=== PATIENT | female | born 1980 | race Caucasian/White ===

== ENCOUNTER 2019-10-19 09:42 | Emergency (ER) | payer MEDICARE, MEDICAID, SELFPAY ==
[2019-10-19 10:00] VITALS: BP 140/92; PULSE 82; RESP 18; TEMP 36.8; O2SAT 99
--- NOTE | 2019-10-19 10:05 | ED.URI ---
HPI - URI/Sore Throat General Stated Complaint: Sinus and sore throat Time Seen by Provider: 10/19/19 10:05 Source: patient and RN notes reviewed History of Present Illness HPI Narrative: Patient is a 39-year-old female that presents the urgent care with complaints of sinus congestion, sore throat, bilateral ear pressure, postnasal drainage, slight cough without dyspnea or wheezing, chills. Patient states she has a history of asthma and typically is treated with steroids and antibiotics. Patient states she has been using her nebulizers inhalers as needed. Patient has recently traveled from [place]. Denies known fever. No other acute complaints. No acute distress noted. Patient had a plan of care. Related Data Allergies Allergy/AdvReac Type Severity Reaction Status Date / Time codeine Allergy Severe HIVES, BUT Verified 10/19/19 10:17 NOT ALLERGIC TO ANY OTHER CODIENE MEDS OR TYLENOL lisinopril Allergy Unknown Anaphylactic Verified 10/19/19 10:17 Shock SUMATRIPTAN SUCCINATE Allergy Mild SEIZURES Uncoded 11/22/15 11:50 Review of Systems Review of Systems: Narrative: CONSTITUTIONAL: Reports of chills EYES: Denies visual changes, redness, or discharge. ENT: Reports of sore throat, sinus congestion, bilateral ear pressure, postnasal drainage CARDIOVASCULAR: Denies chest pain, palpitations, or edema. RESPIRATORY: Reports of nonproductive cough without dyspnea or wheezing GASTROINTESTINAL: Denies abdominal pain, nausea, vomiting, or diarrhea. GENITOURINARY: Denies dysuria or hematuria. SKIN: Denies rash or itching. MUSCULOSKELETAL: Denies back pain, joint pain, or myalgia. NEUROLOGIC: Denies headache, numbness, or weakness. All other systems reviewed are negative, except as documented in HPI. PMFSH Comments At the time of my signature, I reviewed and agree with the nursing past medical, surgical, social, and family history. There is no relevant family history pertinent to the patient complaint. Exam Narrative: Exam Narrative: GENERAL: This is a well-nourished, well-developed patient, in no apparent distress. HEAD: normocephalic, atraumatic. EYES: PERRL. Sclera clear/white. Vision is grossly intact. EARS: External ears normal, auditory canals clear and without drainage, TMs normal without perforation. Hearing grossly intact. NOSE: External nose normal with no obvious nasal discharge, nares without redness, clear rhinorrhea. THROAT: Mucous membranes moist, posterior pharynx clear. Mild clear postnasal drainage NECK: Neck supple CARDIOVASCULAR: Regular rate and rhythm without murmurs, gallops, or rubs. RESPIRATORY: Clear to auscultation. Breath sounds equal bilaterally. No wheezes, rales, or rhonchi. SKIN: warm, intact with no suspicious lesions or rash, good texture and turgor. NEURO: awake, alert, and oriented to person, place and time. There were no obvious focal neurologic abnormalities. EXTREMITIES: No clubbing, cyanosis, or edema. Course Vital Signs Vital signs: Vital Signs Temperature 98.2 F 10/19/19 10:00 Pulse Rate 82 10/19/19 10:00 Respiratory Rate 18 10/19/19 10:00 Blood Pressure 140/92 H 10/19/19 10:00 Pulse Oximetry 99 10/19/19 10:00 Temperature 98.2 F 10/19/19 10:00 Pulse Rate 82 10/19/19 10:00 Respiratory Rate 18 10/19/19 10:00 Blood Pressure 140/92 H 10/19/19 10:00 Pulse Oximetry 99 10/19/19 10:00 Reviewed MDM - URI/Sore Throat MDM Narrative Medical decision making narrative: Reviewed lab results with the patient. She is aware that her strep swab was negative as well as influenza. Educated patient on culture and we will call within 72 hours if culture is positive for strep and antibiotics are necessary. Advised the patient to use nebulizers and inhalers as directed. Continue allergy medication. Use Flonase nasal spray for postnasal drainage and sinus relief. Complete steroid regimen as prescribed. Make sure to eat and drink w
== END 2019-10-19 10:25 | disposition home or self-care (01) ==
PROVIDERS: Emergency Provider Nurse Practitioner Family; PCP Family Medicine
DX: J06.9 Acute upper respiratory infection, unspecified (principal); J45.909 Unspecified asthma, uncomplicated; I10 Essential (primary) hypertension; M06.9 Rheumatoid arthritis, unspecified
CPT/HCPCS: 87081; 87804; 87880; 99213; G0463

== ENCOUNTER 2020-01-14 10:34 | Outpatient (CLI) | payer MEDICARE, MEDICAID, SELFPAY ==
[2020-01-14 10:56] LABS: Basophils Absolute Auto 0.1 K/mm3 (0.0-0.1); Basophils Percent Auto 0.7 % (0.2-1.2); Eosinophils Absolute Auto 0.2 K/mm3 (0-0.3); Eosinophils Percent Auto 1.9 % (0-4.4); Hematocrit 42.5 % (37.0-47.0); Hemoglobin 14.8 g/dL (12.0-15.0); Immature Granulocyte Absolute 0.03 K/mm3 (0.00-0.031); Immature Granulocyte Percent A 0.4 % (0-0.5); Lymphocytes Absolute Auto 2.61 K/mm3 (0.9-3.2); Mean Corpuscular HGB Conc 34.8 g/dl (32-36); Mean Corpuscular Volume 89.1 fl (80-100); Mean Platelet Volume 9.8 fl (7.4-10.4); Monocytes Absolute Auto 0.7 K/mm3 (0.1-0.6); Monocytes Percent Auto 7.9 % (2.6-8.5); Neutrophils Absolute Auto 4.9 K/mm3 (1.3-6.7); Neutrophils Percent Auto 58.1 % (45.5-73.1); Platelet Count Result 263 k/mm3 (150-375); Red Blood Count 4.77 M/mm3 (4.2-5.4); Red Cell Distribution Width 12.5 % (11.5-14.5); White Blood Count 8.4 K/mm3 (4.5-10.0)
[2020-01-14 11:12] LABS: Alanine Aminotransferase 110 U/L (4-35); Albumin Level 4.3 g/dL (3.5-5.1); Alkaline Phosphatase 71 U/L (38-126); Aspartate Amino Transferase 85 U/L (14-36); Bilirubin,Total 0.7 mg/dL (0.2-1.3); Blood Urea Nitrogen 11 mg/dL (7-17); Calcium 8.8 mg/dL (8.4-10.2); Carbon Dioxide 26 mmol/L (22-30); Chloride 105 mmol/L (98-107); Cholesterol 187 mg/dL (0-200); Estimated Glomerular Filt Rate > 60; Glucose 96 mg/dL (65-105); HDL Direct 43 mg/dL; Potassium 3.9 mmol/L (3.4-5.0); Sodium 137 mmol/L (137-145); Triglycerides 199 mg/dL (<150)
[2020-01-14 11:23] LABS: LDL Cholesterol Direct 102 mg/dL
[2020-01-14 12:25] LABS: Free T4 Free Thyroxine 1.01 ng/mL (0.78-2.19); Vitamin D 25 Hydroxy 37.4 ng/mL
== END 2020-01-14 10:35 | disposition home or self-care (01) ==
LOC: ANHLAB 10:40
PROVIDERS: PCP Family Medicine; Visit Provider Family Medicine
DX: Z13.0 Encounter for screening for diseases of the blood and blood-forming organs and certain disorders involving the immune mechanism (principal); Z13.6 Encounter for screening for cardiovascular disorders; Z13.220 Encounter for screening for lipoid disorders; Z13.29 Encounter for screening for other suspected endocrine disorder; E55.9 Vitamin D deficiency, unspecified
CPT/HCPCS: 36415; 80053; 80061; 82306; 84439; 84443; 84480; 85025

== ENCOUNTER 2020-04-21 10:16 | Outpatient (CLI) | payer MEDICARE, MEDICAID, SELFPAY ==
--- NOTE | ~2020-04-21 | XR_ITS ---
XR foot RT min 3V 04/21/2020 10:35 Indication: Right foot pain Procedure: 4 views right foot Comparison: 08/14/2010 Findings: There are degenerative calcaneal enthesophytes. Mild osteoarthritis of the first MTP joint. No fracture, subluxation or dislocation. Lisfranc joint intact. 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 Reviewed, dictated and finalized at location B. 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
== END 2020-04-21 10:17 | disposition home or self-care (01) ==
LOC: ANHIMG 10:21
PROVIDERS: PCP Family Medicine; Visit Provider Nurse Practitioner
DX: M79.671 Pain in right foot (principal); M19.071 Primary osteoarthritis, right ankle and foot
CPT/HCPCS: 73630

== ENCOUNTER → 2020-09-24 07:41 | Outpatient (CLI) | payer MEDICARE, MEDICAID, SELFPAY ==
[2020-09-24 22:49] LABS: SARS-CoV-2 RNA PCR Negative
== END ==
PROVIDERS: PCP Family Medicine; Visit Provider Family Medicine
DX: Z20.822 Contact with and (suspected) exposure to COVID-19 (principal)
CPT/HCPCS: C9803; U0003; U0005

== ENCOUNTER 2020-10-13 18:23 | Emergency (ER) | payer MEDICARE, MEDICAID, SELFPAY ==
--- NOTE | ~2020-10-13 | XR_ITS ---
XR chest 1V portable 10/13/2020 19:32 Indication: Covid Infection. Shortness of breath. Fever. Procedure: AP portable chest Comparison: Comparison to multiple prior studies sequentially, with oldest reviewed study dated 02/2011. Findings: There are bilateral interstitial infiltrates with left basilar atelectasis. No pleural effu aleena. No pneumothorax. Heart size normal. Impression: 1: Bilateral interstitial infiltrates, suspicious for pneumonia. Reviewed, dictated and finalized at location A. E [employer] Impression: 1: Bilateral interstitial infiltrates, suspicious for pneumonia.
[2020-10-13 18:35] VITALS: BP 136/89; PULSE 94; RESP 18; TEMP 37.2; O2SAT 98
[2020-10-13 19:14] LABS: Basophils Percent Auto 0.3 % (0.2-1.2); Eosinophils Percent Auto 0.3 % (0-4.4); Hematocrit 42.6 % (37.0-47.0); Hemoglobin 14.9 g/dL (12.0-15.0); Immature Granulocyte Absolute 0.03 K/mm3 (0.00-0.031); Immature Granulocyte Percent A 0.8 % (0-0.5); Lymphocytes Absolute Auto 0.68 K/mm3 (0.9-3.2); Lymphocytes Percent Auto 17.8 % (18.3-44.2); Mean Corpuscular Hemoglobin 30.7 pg (26-34); Mean Corpuscular Volume 87.8 fl (80-100); Mean Platelet Volume 10.1 fl (7.4-10.4); Monocytes Absolute Auto 0.1 K/mm3 (0.1-0.6); Monocytes Percent Auto 3.1 % (2.6-8.5); Neutrophils Percent Auto 77.7 % (45.5-73.1); Platelet Count Result 179 k/mm3 (150-375); Red Blood Count 4.85 M/mm3 (4.2-5.4); Red Cell Distribution Width 12.1 % (11.5-14.5); White Blood Count 3.8 K/mm3 (4.5-10.0)
[2020-10-13 19:28] LABS: Anion Gap 7 mmol/L (8-16); Blood Urea Nitrogen 11 mg/dL (7-17); Calcium 8.5 mg/dL (8.4-10.2); Carbon Dioxide 26 mmol/L (22-30); Chloride 104 mmol/L (98-107); Estimated CRCL calculation 122 ml/min; Estimated Glomerular Filt Rate > 60; Glucose 247 mg/dL (65-105); Sodium 137 mmol/L (137-145)
--- NOTE | 2020-10-13 20:22 | ED.FEVER ---
HPI - Fever General Chief Complaint: Fever Stated Complaint: COVID+ FEVER Time Seen by Provider: 10/13/20 18:40 History of Present Illness HPI Narrative: Patient is a 40-year-old female who presents the ER with feelings of increased fatigue and fever related to her COVID-19 illness. Patient began to feel symptoms 1 week ago and tested +5 days ago. She is also starting to have some discomfort in her back with breathing and movement. She is been taking Tylenol and ibuprofen. She contacted her PCPs office who started her on prednisone today as well as albuterol breathing treatments. Patient has no exertional shortness of breath. She has some mild runny nose with sore throat with occasional cough. No chest pain or chest pressure. Related Data Home Medications Medication Instructions Recorded Confirmed amlodipine 5 mg PO DAILY 10/13/20 bumetanide [Bumex] 1 mg PO DAILY 10/13/20 fexofenadine [Alda] 180 mg PO DAILY 10/13/20 metoprolol succinate 100 mg PO DAILY 10/13/20 prednisone 0 mg PO PER PKG DIR 10/13/20 Allergies Allergy/AdvReac Type Severity Reaction Status Date / Time codeine Allergy Severe HIVES, BUT Verified 10/13/20 19:00 NOT ALLERGIC TO ANY OTHER CODIENE MEDS OR TYLENOL lisinopril Allergy Unknown Anaphylactic Verified 10/13/20 19:00 Shock SUMATRIPTAN SUCCINATE Allergy Mild SEIZURES Uncoded 11/22/15 11:50 Review of Systems Review of Systems: All systems reviewed & are unremarkable except as noted in HPI and below Constitutional: Constitutional: Denies chills, Denies fatigue and Denies fever(s) ENT: Reports nasal congestion and Reports sore throat Cardiovascular: Cardiovascular: Denies chest pain and Denies radiating jaw, neck or arm pain Respiratory: Respiratory: Reports cough, Denies dyspnea and Denies wheezing Musculoskeletal: Musculoskeletal: Reports back pain, Reports myalgias and Denies muscle cramps PMFSH Past Medical History Medical History (Updated 10/13/20 @ 20:38 by Dane Vanessa MD) Rheumatoid arthritis Surgical History Surgical History (Updated 10/13/20 @ 20:38 by Dane Vanessa MD) No pertinent past surgical history Social History Social History Gender identity (if verbalized by the patient): Female Exam Narrative: Exam Narrative: GENERAL: Well-appearing, well-nourished, and in no acute distress. HEAD: Normocephalic, atraumatic. ENT: Mucous membranes moist. CHEST: Clear to auscultation. No respiratory distress. HEART: Regular rate and rhythm. Normal peripheral pulses. EXTREMITIES: Normal range of motion. No edema. NEURO: Alert and oriented x3. PSYCH: Normal mood and affect. Course Vital Signs Vital signs: Vital Signs Temperature 99 F 10/13/20 18:35 Pulse Rate 94 10/13/20 18:35 Respiratory Rate 18 10/13/20 18:35 Blood Pressure 136/89 10/13/20 18:35 Pulse Oximetry 98 10/13/20 18:35 Temperature 99 F 10/13/20 18:35 Pulse Rate 94 10/13/20 18:35 Respiratory Rate 18 10/13/20 18:35 Blood Pressure 136/89 10/13/20 18:35 Pulse Oximetry 98 10/13/20 18:35 MDM - Fever Lab Data Result diagrams: 10/13/20 19:05 10/13/20 19:05 Labs: Lab Results 10/13/20 10/13/20 Range/Units 19:05 19:05 WBC 3.8 L (4.5-10.0) K/mm3 RBC 4.85 (4.2-5.4) M/mm3 Hgb 14.9 (12.0-15.0) g/dL Hct 42.6 (37.0-47.0) % MCV 87.8 (80-100) fl MCH 30.7 (26-34) pg MCHC 35.0 (32-36) g/dl RDW 12.1 (11.5-14.5) % Plt Count 179 (150-375) k/mm3 MPV 10.1 (7.4-10.4) fl Immature Gran % (Auto) 0.8 H (0-0.5) % Neut % (Auto) 77.7 H (45.5-73.1) % Lymph % (Auto) 17.8 L (18.3-44.2) % [place] % (Auto) 3.1 (2.6-8.5) % Eos % (Auto) 0.3 (0-4.4) % Baso % (Auto) 0.3 (0.2-1.2) % Lymph # (Auto) 0.68 L (0.9-3.2) K/mm3 [place] # (Auto) 0.1 (0.1-0.6) K/mm3 Eos # (Auto) 0.0 (0-0.3) K/mm3 Baso # (Auto) 0.0 (0.0-0.1) K/mm3 Ab
[2020-10-13 20:41] VITALS: BP 139/89; PULSE 74; RESP 16; TEMP 36.7; O2SAT 98
[2020-10-13] MEDS: ONDANSETRON INJ 4 MG/2 ML VIAL IV PUSH (20:41)
== END 2020-10-13 20:42 | disposition home or self-care (01) ==
PROVIDERS: Emergency Provider Emergency Medicine; PCP Family Medicine
DX: U07.1 COVID-19 (principal); J12.82 Pneumonia due to coronavirus disease 2019; M06.9 Rheumatoid arthritis, unspecified
CPT/HCPCS: 36415; 71045; 80048; 85025; 96374; 99284; J2405

== ENCOUNTER 2020-10-14 11:33 | Outpatient (RCR) | payer MEDICARE, MEDICAID, SELFPAY ==
[2020-10-14] MEDS: ACETAMINOPHEN 325 MG TABLET 650 MG PO (12:40)
[2020-10-14] MEDS: FAMOTIDINE 20 MG TABLET PO (12:40)
[2020-10-14] MEDS: diphenhydrAMINE HCl CAP 25 MG CAPSULE PO (12:41)
[2020-10-14 12:52] VITALS: BP 121/70; PULSE 73; RESP 18; TEMP 36.7; O2SAT 96
[2020-10-14 14:17] VITALS: BP 132/78; PULSE 72; RESP 18; O2SAT 97
== END 2020-10-14 16:30 | disposition home or self-care (01) ==
LOC: AMCINF 11:33
PROVIDERS: PCP Nurse Practitioner; Visit Provider Internal Medicine Hematology & Oncology
DX: Z23 Encounter for immunization (principal); U07.1 COVID-19; I10 Essential (primary) hypertension; Z68.41 Body mass index [BMI] 40.0-44.9, adult
CPT/HCPCS: A9270; M0239; Q0239

== ENCOUNTER 2020-11-23 14:17 | Emergency (ER) | payer MEDICARE, MEDICAID, SELFPAY ==
--- NOTE | ~2020-11-23 | CT_ITS ---
EXAMINATION: CT abdomen pelvis w con DATE: 11/23/2020 15:52 INDICATION: Constipation. Abdominal pain. TECHNIQUE: Computed tomography (CT) of the abdomen and pelvis was performed with 100 mL Omnipaque 350 intravenous contrast. Automated exposure control and iterative reconstruction technique were employe d. The dose-length product was 1358.39 mGy-cm. COMPARISON: CT abdomen and pelvis 09/28/2011 FINDINGS: The visualized portions of the lung bases demonstrate minimal atelectasis. No pleural effus ion. The heart size is normal. No pericardial effusion. The liver is normal. There are changes of cho lecystectomy. There are chronic low-attenuation lesions in the spleen measuring up to 10 mm, likely b enign lesions such as granulomatous disease. The pancreas, adrenal glands, and kidneys are normal nor mal. There is diverticulosis of the colon without evidence of diverticulitis. There are no dilated lo ops of bowel. The appendix is normal. There are no pathologically enlarged lymph nodes. There is no f ree intraperitoneal fluid. There are chronic bilateral L5 pars defects. There is 5 mm anterolisthesis of L5 on S1. There is moderate lumbar spondylosis. IMPRESSION: 1. No etiology for the patient's symptoms. Reviewed, dictated and finalized at location B.
[2020-11-23 14:52] VITALS: BP 131/95; PULSE 87; RESP 14; TEMP 36.4; O2SAT 99
[2020-11-23 15:04] LABS: Basophils Absolute Auto 0.1 K/mm3 (0.0-0.1); Eosinophils Absolute Auto 0.1 K/mm3 (0-0.3); Eosinophils Percent Auto 1.2 % (0-4.4); Hematocrit 41.2 % (37.0-47.0); Hemoglobin 14.7 g/dL (12.0-15.0); Immature Granulocyte Absolute 0.03 K/mm3 (0.00-0.031); Immature Granulocyte Percent A 0.5 % (0-0.5); Lymphocytes Absolute Auto 2.35 K/mm3 (0.9-3.2); Lymphocytes Percent Auto 39.9 % (18.3-44.2); Mean Corpuscular HGB Conc 35.7 g/dl (32-36); Mean Corpuscular Hemoglobin 31.3 pg (26-34); Mean Corpuscular Volume 87.7 fl (80-100); Mean Platelet Volume 9.7 fl (7.4-10.4); Monocytes Absolute Auto 0.6 K/mm3 (0.1-0.6); Monocytes Percent Auto 9.7 % (2.6-8.5); Neutrophils Absolute Auto 2.8 K/mm3 (1.3-6.7); Neutrophils Percent Auto 47.7 % (45.5-73.1); Platelet Count Result 288 k/mm3 (150-375); Red Cell Distribution Width 12.4 % (11.5-14.5); White Blood Count 5.9 K/mm3 (4.5-10.0)
[2020-11-23 15:09] LABS: Alanine Aminotransferase 375 U/L (4-35); Albumin Level 4.6 g/dL (3.5-5.1); Alkaline Phosphatase 79 U/L (38-126); Anion Gap 6 mmol/L (8-16); Aspartate Amino Transferase 345 U/L (14-36); Blood Urea Nitrogen 8 mg/dL (7-17); Calcium 8.8 mg/dL (8.4-10.2); Carbon Dioxide 27 mmol/L (22-30); Chloride 105 mmol/L (98-107); Estimated CRCL calculation 123 ml/min; Estimated Glomerular Filt Rate > 60; Glucose 125 mg/dL (65-105); Lipase 210 U/L (23-300); Potassium 3.8 mmol/L (3.4-5.0); Sodium 138 mmol/L (137-145)
[2020-11-23 15:10] VITALS: BP 145/90; PULSE 99; RESP 18; TEMP 36.6; O2SAT 97
[2020-11-23 15:15] LABS: Add Urine Microscopic? NO; Appearance Urine Clear (Clear); Bilirubin Urine Negative (Negative); Blood Urine Negative (Negative); Color Urine Straw (Yellow); Glucose Urine UA Negative (Negative); Ketones Urine Negative (Negative); Leukocyte Esterase Ur Negative LEU/UL (Negative); Nitrate Urine Negative (Negative); Protein Urine Negative (Negative); Specific Grav Ur 1.005 (1.001-1.035); Urobilinogen Urine Negative mg/dL (<2.0)
--- NOTE | 2020-11-23 15:26 | ED.ABDPAIN ---
HPI - Abdominal Pain General Chief Complaint: Abdominal Pain Stated Complaint: constipation x 1 week Time Seen by Provider: 11/23/20 15:20 Source: RN notes reviewed History of Present Illness HPI narrative: Patient presents to emergency department from home for abdominal pain. Patient states that beginning yesterday she began to have abdominal pain diffusely throughout the abdomen described as cramping. States that she has had minimal bowel movements for the past 7 days and does have a history of constipation she states that time she had tried laxatives followed by an enema with normal output. She did talk to her GI specialist yesterday and tried magnesium citrate with no results due to the fact that she continued no bowel movements she was directed to the emergency department to rule out a bowel obstruction as patient has had previous gallbladder surgery she denies any fevers or chills chest pain shortness of breath. She does note nausea states she took no pain medication at home Related Data Home Medications Medication Instructions Recorded Confirmed amlodipine 5 mg PO DAILY 10/13/20 10/14/20 bumetanide [Bumex] 1 mg PO DAILY 10/13/20 10/14/20 fexofenadine [Alda] 180 mg PO DAILY 10/13/20 10/14/20 metoprolol succinate 100 mg PO DAILY 10/13/20 10/14/20 Allergies Allergy/AdvReac Type Severity Reaction Status Date / Time codeine Allergy Severe HIVES, BUT Verified 11/23/20 15:21 NOT ALLERGIC TO ANY OTHER CODIENE MEDS OR TYLENOL lisinopril Allergy Unknown Anaphylactic Verified 11/23/20 15:21 Shock SUMATRIPTAN SUCCINATE Allergy Mild SEIZURES Uncoded 11/23/20 15:21 Review of Systems Review of Systems: Narrative: Gen.: Denies fevers or chills ENT: Denies congestion Respiratory: Denies shortness of breath or cough CV: Denies chest pain or palpitations GI: See HPI denies burning, urgency, frequency or hematuria Musculoskeletal: Denies back pain or muscle pain Neuro: Denies numbness, tingling, weakness or focal weakness Skin: Denies rash Except as documented, all other systems reviewed and negative PMFSH Past Medical History Medical History Rheumatoid arthritis Surgical History Surgical History (Updated 10/13/20 @ 20:38 by Dane Vanessa MD) No pertinent past surgical history Social History Social History Smoking status: Former smoker Tobacco type: cigarettes Gender identity (if verbalized by the patient): Female Spiritual care concerns: No Exam Narrative: Exam Narrative: APPEARANCE: No acute distress, nontoxic, resting in bed HEENT: Normocephalic, atraumatic, OMM RESPIRATORY: No respiratory distress, clear to auscultation bilaterally with no rhonchi wheezing or rales CARDIOVASCULAR: RRR s murmur ABDOMINAL: Soft nondistended diffusely tender to palpation no rebound or guarding MUSCULOSKELETAl: Moves all extremities. No clubbing, cyanosis or edema. NEURO: Awake and alert. Following commands, speech normal, no focal deficits SKIN:: Warm, dry. Normal Color PSYCHIATRIC: Normal affect/mood Course Course Emergency Course: Discussed with the patient her elevated liver enzymes states that she has had elevated liver enzymes over the past year that she is having worked out they been elevated in the past and has been evaluated and then improved and is been increasing over the past year she states that she has had a biopsy before in the past and is followed by GI will follow as an outpatient with these Patient states that they are feeling much better at this time. States abdominal pain has resolved. Repeat abdominal exam shows the patient's abdomen to be soft and nontender. Discussed with patient results of workup and diagnosis. Discussed need for follow-up with primary care physician, reasons to return to the emergency department in proper use of medication. P
--- NOTE | 2020-11-23 15:43 | PC.NURSE ---
Pt to CT at this time.
[2020-11-23] MEDS: SODIUM CHLORIDE 0.9% IV 1,000 ML 999 ML IV CONT (16:01)
[2020-11-23] MEDS: ONDANSETRON INJ 4 MG/2 ML VIAL IV PUSH (16:03)
[2020-11-23] MEDS: KETOROLAC 30 MG/ML VIAL (*BKC) IV PUSH (16:05)
[2020-11-23 17:00] VITALS: BP 130/90; PULSE 75; RESP 16; O2SAT 99
== END 2020-11-23 17:00 | disposition home or self-care (01) ==
PROVIDERS: Emergency Provider Emergency Medicine; PCP Family Medicine
DX: R10.9 Unspecified abdominal pain (principal); R74.01 Elevation of levels of liver transaminase levels; M06.9 Rheumatoid arthritis, unspecified; Z87.891 Personal history of nicotine dependence
CPT/HCPCS: 36415; 74177; 80053; 81003; 81025; 83690; 85025; 96361; 96374; 96375; 99284; J1885; J2405; J7030; Q9967

== ENCOUNTER 2021-01-17 10:11 | Outpatient (CLI) | payer MEDICARE, MEDICAID, SELFPAY ==
--- NOTE | ~2021-01-17 | US_ITS ---
EXAMINATION: US abdomen limited EXAM DATE: 01/17/2021 10:44 INDICATION: Hepatitis C. TECHNIQUE: Multiple grayscale and Doppler images of the abdomen right upper quadrant were obtained (renan y a technologist who performed the scan) and subsequently reviewed. There is no prior study for trevor duenas. FINDINGS: The pancreatic head and body are normal in appearance. The pancreatic tail is not visualized. The l iver has normal echogenicity and contour. There are no focal liver lesions identified. There is no evidence of intrahepatic biliary duct dilation. Portal venous flow was seen in the hepatopedal, nor mal direction and has normal Doppler waveform. No right-sided hydronephrosis. Common bile duct measures 2 mm, which is normal. The gallbladder fossa is unremarkable. IMPRESSION: 1. Unremarkable abdominal ultrasound exam. Reviewed, dictated and finalized at location B.
== END 2021-01-17 10:12 | disposition home or self-care (01) ==
PROVIDERS: PCP Family Medicine; Visit Provider Internal Medicine Gastroenterology
DX: B19.20 Unspecified viral hepatitis C without hepatic coma (principal); R94.5 Abnormal results of liver function studies; R10.11 Right upper quadrant pain; R14.0 Abdominal distension (gaseous); K59.00 Constipation, unspecified; R63.0 Anorexia
CPT/HCPCS: 76705

== ENCOUNTER 2021-03-18 12:51 | Emergency (ER) | payer MEDICARE, MEDICAID, SELFPAY ==
[2021-03-18] VITALS (9 sets, daily range): BP systolic 123–151; BP diastolic 73–106; PULSE 74–86; RESP 14–21; TEMP 36.2; O2SAT 96–100
--- NOTE | ~2021-03-18 | XR_ITS ---
EXAMINATION: XR chest 2V DATE: 03/18/2021 13:18 INDICATION: Chest pain and productive cough TECHNIQUE: PA and lateral views of the chest are obtained. COMPARISON: 10/13/2020 FINDINGS: The lungs are free of acute opacities. There is no pleural effusion or pneumothorax. The ca rdiomediastinal silhouette is normal. The visualized bones and soft tissues are unremarkable. Cholecy stectomy clips are present in the right upper quadrant. IMPRESSION: 1. No acute cardiopulmonary abnormality. Reviewed, dictated and finalized at location A.
--- NOTE | 2021-03-18 13:02 | ECG_ITS ---
Measurements Intervals [place] Rate: 79 P: 46 NC: 180 QRS: 53 QRSD: 87 T: 47 QT: 364 QTc: 418 Interpretive Statements SINUS RHYTHM BASELINE ARTIFACT- I, III, AVL NORMAL ECG Electronically Signed On 03-18-2021 20:00:24 CDT by Fam Huerta D.O.
[2021-03-18 13:42] LABS: Basophils Absolute Auto 0.1 K/mm3 (0.0-0.1); Basophils Percent Auto 0.8 % (0.2-1.2); Eosinophils Absolute Auto 0.1 K/mm3 (0-0.3); Hematocrit 44.1 % (37.0-47.0); Hemoglobin 14.9 g/dL (12.0-15.0); Immature Granulocyte Absolute 0.03 K/mm3 (0.00-0.031); Immature Granulocyte Percent A 0.5 % (0-0.5); Lymphocytes Absolute Auto 1.67 K/mm3 (0.9-3.2); Lymphocytes Percent Auto 26.1 % (18.3-44.2); Mean Corpuscular HGB Conc 33.8 g/dl (32-36); Mean Corpuscular Hemoglobin 29.9 pg (26-34); Mean Corpuscular Volume 88.4 fl (80-100); Mean Platelet Volume 10.2 fl (7.4-10.4); Monocytes Absolute Auto 0.6 K/mm3 (0.1-0.6); Monocytes Percent Auto 9.5 % (2.6-8.5); Neutrophils Absolute Auto 3.9 K/mm3 (1.3-6.7); Neutrophils Percent Auto 61.1 % (45.5-73.1); Platelet Count Result 279 k/mm3 (150-375); Red Blood Count 4.99 M/mm3 (4.2-5.4); Red Cell Distribution Width 12.4 % (11.5-14.5); White Blood Count 6.4 K/mm3 (4.5-10.0)
[2021-03-18 13:53] LABS: INR 0.9; Prothrombin Time 12.3 Seconds (11.1-14.7)
[2021-03-18 13:54] LABS: Anion Gap 7 mmol/L (8-16); Blood Urea Nitrogen 6 mg/dL (7-17); Calcium 9.4 mg/dL (8.4-10.2); Carbon Dioxide 27 mmol/L (22-30); Chloride 106 mmol/L (98-107); Estimated CRCL calculation 122 ml/min; Estimated Glomerular Filt Rate > 60; Glucose 128 mg/dL (65-110); Potassium 3.9 mmol/L (3.4-5.0); Sodium 140 mmol/L (137-145)
[2021-03-18 14:04] LABS: Troponin I < 0.012 ng/mL (0.000-0.034)
--- NOTE | 2021-03-18 15:54 | ED.GENADULT ---
HPI - General Adult General Chief complaint: Chest Pain Stated complaint: URI, N/V/D, rash, cough Time Seen by Provider: 03/18/21 14:09 Source: patient Mode of arrival: ambulatory Limitations: no limitations History of Present Illness HPI narrative: Patient presents for evaluation of multiple complaints. She states her boyfriend tested positive for COVID on 03/06/21. She went to [facility] two days later and had a negative COVID swab. She was asymptomatic at that time. On Saturday of this week she developed a rash to her hands, BLE, neck and shoulders. No new lotions, soaps, detergents at that time. She also experienced some diarrhea. She went back for a second Covid test on Saturday of this week at [facility]. That test was also negative. Diarrhea improved but she had recurrence of her symptoms thereafter. She has experienced hot flashes but denies objective fever. She also reports productive cough of green sputum. She had some SOB last night that did not respond significantly to albuterol MDI. She does smoke but states her pattern is quite variable. She currently reports some body aches, fatigue, sore throat and nausea. She has also had some intermittent chest tightness. She has been taking mucinex and ibuprofen, which have helped her symptoms. She did have COVID in October of this year. Her boyfriend had COVID at that time and also recently tested positive again for it. Related Data Home Medications Medication Instructions Recorded Confirmed amlodipine 5 mg PO DAILY 10/13/20 10/14/20 bumetanide [Bumex] 1 mg PO DAILY 10/13/20 10/14/20 fexofenadine [Alda] 180 mg PO DAILY 10/13/20 10/14/20 metoprolol succinate 100 mg PO DAILY 10/13/20 10/14/20 Miralax 03/18/21 docusate sodium [Colace] PO 03/18/21 Allergies Allergy/AdvReac Type Severity Reaction Status Date / Time codeine Allergy Severe HIVES, BUT Verified 03/18/21 14:00 NOT ALLERGIC TO ANY OTHER CODIENE MEDS OR TYLENOL lisinopril Allergy Unknown Anaphylactic Verified 03/18/21 14:00 Shock SUMATRIPTAN SUCCINATE Allergy Mild SEIZURES Uncoded 03/18/21 14:00 Review of Systems Review of Systems: CONSTITUTIONAL: Reports hot flashes and fatigue. Denies fever. EYES: Denies visual changes, redness, or discharge. ENT: Reports sore throat. Denies rhinorrhea, congestion, or otalgia. CARDIOVASCULAR: Reports chest tightness. Denies palpitations, or edema. RESPIRATORY: Reports cough and shortness of breath GASTROINTESTINAL: Reports diarrhea and nausea. Denies abdominal pain and vomiting GENITOURINARY: Denies dysuria or hematuria. SKIN: Reports recent rash, now resolved. MUSCULOSKELETAL: Denies back pain, joint pain, or myalgia. NEUROLOGIC: Denies headache, numbness, dizziness, or weakness. PSYCHIATRIC: Denies anxiety or depression. [facility] Past Medical History Medical History Fibromyalgia Hepatitis C History of COVID-19 Rheumatoid arthritis Surgical History Surgical History (Updated 10/13/20 @ 20:38 by Dane Vanessa MD) No pertinent past surgical history Social History Social History Smoking status: Current some day smoker Tobacco type: cigarettes Additional smoking assessment comments: variable pattern Living arrangements: with family Gender identity (if verbalized by the patient): Female Sexual Orientation (if Verbalized by the Patient): Straight or Heterosexual Spiritual care concerns: No Exam Narrative: GENERAL: Well-appearing, well-nourished, and in no acute distress. HEAD: Normocephalic, atraumatic. EYES: PERRLA and EOMI. ENT: Nares clear, no rhinorrhea or epistaxis. Mucous membranes moist. Oropharynx without tonsillar hypertrophy exudate or other lesions. Bilateral TMs pearly jerome nonbulging NECK: Supple. No adenopathy or masses. No carotid bruits or JVD CHEST: Cough noted
[2021-03-18 16:08] LABS: D Dimer 0.35 ug/mL (<0.48)
[2021-03-18 16:12] LABS: Alanine Aminotransferase 141 U/L (4-35); Albumin Level 4.5 g/dL (3.5-5.1); Alkaline Phosphatase 80 U/L (38-126); Aspartate Amino Transferase 82 U/L (14-36); Bilirubin,Total 0.8 mg/dL (0.2-1.3); Lipase 132 U/L (23-300)
[2021-03-18] MEDS: SODIUM CHLORIDE 0.9% IV 1,000 ML 999 ML IV CONT (16:17)
[2021-03-18] MEDS: ONDANSETRON INJ 4 MG/2 ML VIAL IV PUSH (16:18)
[2021-03-18] MEDS: FAMOTIDINE 20 MG/2 ML VIAL IV PUSH (16:18)
[2021-03-18 16:22] LABS: Troponin I < 0.012 ng/mL (0.000-0.034)
[2021-03-18 16:34] LABS: Add Urine Microscopic? YES; Appearance Urine Clear (Clear); Bacteria Urine Trace /hpf; Bilirubin Urine Negative (Negative); Blood Urine Negative (Negative); Color Urine Yellow (Yellow); Glucose Urine UA Negative (Negative); Ketones Urine Negative (Negative); Leukocyte Esterase Ur Negative LEU/UL (Negative); Mucus Urine Rare /lpf; Nitrate Urine Negative (Negative); Protein Urine Negative (Negative); Specific Grav Ur 1.015 (1.001-1.035); Squamous Epithelial Cell Urine Rare /hpf (Few); WBC Urine 0-3 /hpf
[2021-03-20 18:31] LABS: SARS-CoV-2 RNA PCR Negative
== END 2021-03-18 18:36 | disposition home or self-care (01) ==
PROVIDERS: Emergency Medicine; Emergency Provider Nurse Practitioner; PCP Family Medicine
DX: B34.9 Viral infection, unspecified (principal); Z20.822 Contact with and (suspected) exposure to COVID-19; M79.7 Fibromyalgia; M06.9 Rheumatoid arthritis, unspecified; Z86.16 Personal history of COVID-19; F17.210 Nicotine dependence, cigarettes, uncomplicated; B19.20 Unspecified viral hepatitis C without hepatic coma
CPT/HCPCS: 36415; 71046; 80048; 80076; 81001; 83690; 84484; 85025; 85380; 85610; 85730; 87081; 87880; 93005; 96361; 96374; 96375; 99284; C9803; J2405; J7030; U0003; U0005

== ENCOUNTER 2021-07-15 16:05 | Emergency (ER) | payer MEDICARE, MEDICAID, SELFPAY ==
--- NOTE | ~2021-07-15 | XR_ITS ---
EXAMINATION: XR chest 1V portable EXAM DATE: 07/15/2021 16:43 INDICATION: Cough. TECHNIQUE: Portable AP frontal chest x-ray was obtained. There is no prior study for comparison. FINDINGS: The lungs are clear. There are no pleural effusions. The cardiomediastinal silhouette is within normal limits. There is no pneumothorax suspected. The bones and soft tissues are unremarkab le. IMPRESSION: No acute cardiopulmonary findings. Reviewed, dictated and finalized at location A. 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
[2021-07-15 16:15] VITALS: BP 143/105; PULSE 92; RESP 18; TEMP 36.7; O2SAT 98
--- NOTE | 2021-07-15 17:15 | ED.GENADULT ---
HPI - General Adult General Chief complaint: Upper Respiratory Infection Stated complaint: Cold for a few weeks Time Seen by Provider: 07/15/21 16:23 History of Present Illness HPI narrative: Patient is a 40-year-old female who presents ER with cold symptoms. Reports last week her child was sick and the entire family is Covid swabbed and it was negative. Her child got better and then she began to develop symptoms in the last 5 days including sinus congestion with sore throat and cough. Reports her discharge is green. Her PCP placed her on a antibiotic for possible sinus infection. She has been using Flonase and home albuterol treatment without improvement. She is concerned that she could develop pneumonia. Patient had previously been on antibiotics for sinus infection prior to her son getting sick. Related Data Home Medications Medication Instructions Recorded Confirmed amlodipine 5 mg PO DAILY 10/13/20 10/14/20 bumetanide [Bumex] 1 mg PO DAILY 10/13/20 10/14/20 fexofenadine [Alda] 180 mg PO DAILY 10/13/20 10/14/20 metoprolol succinate 100 mg PO DAILY 10/13/20 10/14/20 Miralax 03/18/21 docusate sodium [Colace] PO 03/18/21 Allergies Allergy/AdvReac Type Severity Reaction Status Date / Time codeine Allergy Severe HIVES, BUT Verified 03/18/21 14:00 NOT ALLERGIC TO ANY OTHER CODIENE MEDS OR TYLENOL lisinopril Allergy Unknown Anaphylactic Verified 03/18/21 14:00 Shock SUMATRIPTAN SUCCINATE Allergy Mild SEIZURES Uncoded 03/18/21 14:00 Review of Systems Constitutional: Constitutional: Denies chills, Denies fever(s) and Denies weakness ENT: Reports nasal congestion and Reports sore throat Cardiovascular: Cardiovascular: Denies chest pain, Denies rapid heart rate and Denies radiating jaw, neck or arm pain Respiratory: Respiratory: Reports chest congestion, Reports cough, Denies dyspnea and Denies wheezing Gastrointestinal: Gastrointestinal: Denies nausea and Denies vomiting [facility] Past Medical History Medical History Fibromyalgia Hepatitis C History of COVID-19 Rheumatoid arthritis Surgical History Surgical History (Updated 10/13/20 @ 20:38 by Dane Vanessa MD) No pertinent past surgical history Social History Social History Smoking status: Current some day smoker Tobacco type: cigarettes Additional smoking assessment comments: variable pattern Gender identity (if verbalized by the patient): Female Sexual Orientation (if Verbalized by the Patient): Straight or Heterosexual Spiritual care concerns: No Exam Narrative: GENERAL: Well-appearing, well-nourished, and in no acute distress. HEAD: Normocephalic, atraumatic. CHEST: Clear to auscultation. No respiratory distress. HEART: Regular rate and rhythm. Normal peripheral pulses. EXTREMITIES: Normal range of motion. No edema. NEURO: Alert and oriented x3. PSYCH: Normal mood and affect. Course Course Emergency Course: Normal oxygenation and lung sounds. X-ray free of pneumonia. Patient seems to have viral upper respiratory infection. Do not feel patient has any evidence of bronchitis necessitating steroids. Discharge home. Vital Signs Vital signs: Vital Signs Temperature 98.1 F 07/15/21 16:15 Pulse Rate 92 07/15/21 16:15 Respiratory Rate 18 07/15/21 16:15 Blood Pressure 143/105 H 07/15/21 16:15 Pulse Oximetry 98 07/15/21 16:15 Temperature 98.1 F 07/15/21 16:15 Pulse Rate 92 07/15/21 16:15 Respiratory Rate 18 07/15/21 16:15 Blood Pressure 143/105 H 07/15/21 16:15 Pulse Oximetry 98 07/15/21 16:15 Medical Decision Making Vital Signs Vital Signs: Vital Signs Temperature 98.1 F 07/15/21 16:15 Pulse Rate 92 07/15/21 16:15 Respiratory Rate 18 07/15/21 16:15 Blood Pressure 143/105 H 07/15/21 16:15 Pulse Oximetry 98
[2021-07-15 18:08] VITALS: TEMP 37.2
== END 2021-07-15 18:09 | disposition home or self-care (01) ==
PROVIDERS: Emergency Provider Emergency Medicine; PCP Family Medicine
DX: B34.9 Viral infection, unspecified (principal); M79.7 Fibromyalgia; M06.9 Rheumatoid arthritis, unspecified; Z86.16 Personal history of COVID-19
CPT/HCPCS: 71045; 99283

== ENCOUNTER 2022-01-09 11:56 | Emergency (ER) | payer MEDICARE, MEDICAID, SELFPAY ==
[2022-01-09] VITALS (12 sets, daily range): BP systolic 118–136; BP diastolic 71–92; PULSE 71–85; RESP 14–22; TEMP 36.8; O2SAT 96–99
--- NOTE | ~2022-01-09 | XR_ITS ---
EXAMINATION: XR chest 2V 01/09/2022 12:31 INDICATION: Chest pressure PROCEDURE: 2 view chest COMPARISON: Comparison to multiple prior studies sequentially, with oldest reviewed study dated 05/05. FINDINGS: The lungs are clear. The cardiomediastinal silhouette is within normal limits. There are no pleural effusions. There is no pneumothorax suspected. IMPRESSION: 1: NO ACUTE CARDIOPULMONARY DISEASE. Reviewed, dictated and finalized at location B.
--- NOTE | ~2022-01-09 | CT_ITS ---
EXAMINATION: CT brain wo con DATE: 01/09/2022 13:40 INDICATION: Headache. TECHNIQUE: Computed tomography (CT) of the head was performed without intravenous contrast. The mA wa s adjusted according to patient size. Iterative reconstruction technique was employed. The dose-lengt h product was 529.67 mGy-cm. COMPARISON: Head CT 04/25/2015 FINDINGS: There is no intracranial hemorrhage, acute infarction, or abnormal intracranial mass lesion . There is an empty sella. The ventricles are normal in size. The orbits are normal. There is mild mu cosal thickening in the paranasal sinuses. The mastoid air cells are normal. IMPRESSION: 1. No acute intracranial pathology. Reviewed, dictated and finalized at location A.
--- NOTE | 2022-01-09 12:02 | ECG_ITS ---
Measurements Intervals [place] Rate: 79 P: 41 NV: 168 QRS: 50 QRSD: 98 T: 47 QT: 356 QTc: 410 Interpretive Statements SINUS RHYTHM NORMAL ECG COMPARED TO ECG 03/18/2021 13:06:48 NO SIGNIFICANT CHANGES Electronically Signed On 01-10-2022 7:15:22 CDT by Jb Randall M.D.
[2022-01-09 12:21] LABS: Basophils Absolute Auto 0.1 K/mm3 (0.0-0.1); Basophils Percent Auto 0.6 % (0.2-1.2); Eosinophils Absolute Auto 0.1 K/mm3 (0-0.3); Eosinophils Percent Auto 1.8 % (0-4.4); Hematocrit 44.1 % (37.0-47.0); Hemoglobin 14.8 g/dL (12.0-15.0); Immature Granulocyte Absolute 0.02 K/mm3 (0.00-0.031); Immature Granulocyte Percent A 0.3 % (0-0.5); Lymphocytes Absolute Auto 2.72 K/mm3 (0.9-3.2); Lymphocytes Percent Auto 34.7 % (18.3-44.2); Mean Corpuscular HGB Conc 33.6 g/dl (32-36); Mean Corpuscular Hemoglobin 30.3 pg (26-34); Mean Corpuscular Volume 90.4 fl (80-100); Mean Platelet Volume 9.9 fl (7.4-10.4); Monocytes Absolute Auto 0.7 K/mm3 (0.1-0.6); Monocytes Percent Auto 8.4 % (2.6-8.5); Neutrophils Absolute Auto 4.3 K/mm3 (1.3-6.7); Neutrophils Percent Auto 54.2 % (45.5-73.1); Platelet Count Result 266 k/mm3 (150-375); Red Blood Count 4.88 M/mm3 (4.2-5.4); Red Cell Distribution Width 12.6 % (11.5-14.5); White Blood Count 7.8 K/mm3 (4.5-10.0)
[2022-01-09 12:31] LABS: Alanine Aminotransferase 142 U/L (6-35); Albumin Level 4.7 g/dL (3.5-5.1); Alkaline Phosphatase 73 U/L (38-126); Anion Gap 7 mmol/L (8-16); Aspartate Amino Transferase 94 U/L (14-36); Bilirubin,Total 0.7 mg/dL (0.2-1.3); Blood Urea Nitrogen 13 mg/dL (7-17); Calcium 8.5 mg/dL (8.4-10.2); Carbon Dioxide 27 mmol/L (22-30); Chloride 104 mmol/L (98-107); Estimated CRCL calculation 103 ml/min; Estimated Glomerular Filt Rate > 60; Glucose 132 mg/dL (65-110); Lipase 142 U/L (23-300); Potassium 3.7 mmol/L (3.4-5.0); Sodium 138 mmol/L (137-145)
[2022-01-09 12:33] LABS: INR 0.9; Prothrombin Time 11.4 Seconds (11.1-14.7)
[2022-01-09 12:34] LABS: Partial Thromboplastin Time 20.8 SECONDS (22.3-36.8)
[2022-01-09 12:42] LABS: Troponin I < 0.012 ng/mL (0.000-0.034)
--- NOTE | 2022-01-09 13:28 | ED.GENADULT ---
HPI - General Adult General Chief complaint: Unspecified Stated complaint: visual changes yesterday, chest discomfort Time Seen by Provider: 01/09/22 12:28 History of Present Illness HPI narrative: 41-year-old female presenting to the emergency department for evaluation of migraine and right-sided chest pain. Patient states yesterday while she was cleaning she had onset of a visual aura which she describes as a bright light in her peripheral vision. Patient states she had no headache at the time. Patient states that the visual changes lasted approximately 30 minutes. Patient states after the visual changes resolved she did have onset of a headache. Patient did take ibuprofen for the headache and it did also resolved. Patient did check her blood pressure multiple times during the day and noted it was not elevated. Patient does have history of hypertension but her blood pressure was well controlled yesterday when patient was going to bed later that night she felt onset of right-sided chest pain that did radiate into her neck. When patient woke up in the morning she was still having the right-sided chest pain which she describes as an aching. Patient states that symptoms were not worsened with movement. Patient does report she feels off but denies any current headache. Denies any shortness of breath. Patient denies any fevers. Patient denies any associated nausea vomiting or diarrhea. Patient denies any prior history of CVA or NH. Related Data Home Medications Medication Instructions Recorded Confirmed amlodipine 5 mg tablet 5 mg PO DAILY 10/13/20 10/14/20 bumetanide 1 mg tablet 1 mg PO DAILY 10/13/20 10/14/20 fexofenadine 30 mg tablet 180 mg PO DAILY 10/13/20 10/14/20 metoprolol succinate 100 mg 100 mg PO DAILY 10/13/20 10/14/20 tablet,extended release 24 hr Miralax 03/18/21 docusate sodium 50 mg capsule PO 03/18/21 Allergies Allergy/AdvReac Type Severity Reaction Status Date / Time lisinopril Allergy Unknown Anaphylactic Verified 03/18/21 14:00 Shock SUMATRIPTAN SUCCINATE Allergy Mild SEIZURES Uncoded 03/18/21 14:00 Review of Systems Review of Systems: CONSTITUTIONAL: Denies fever, chills, or sweats. EYES: See HPI ENT: Denies rhinorrhea, congestion, sore throat, or otalgia. CARDIOVASCULAR: See HPI RESPIRATORY: Denies cough or dyspnea. GASTROINTESTINAL: Denies abdominal pain, nausea, vomiting, or diarrhea. GENITOURINARY: Denies dysuria or hematuria. SKIN: Denies rash or itching. MUSCULOSKELETAL: Denies back pain, joint pain, or myalgia. NEUROLOGIC: Denies headache, numbness, or weakness. [facility] Past Medical History Medical History Fibromyalgia Hepatitis C History of COVID-19 Rheumatoid arthritis Surgical History Surgical History (Updated 10/13/20 @ 20:38 by Dane Vanessa MD) No pertinent past surgical history Social History Social History Smoking status: Current some day smoker Tobacco type: cigarettes Additional smoking assessment comments: variable pattern Gender identity (if verbalized by the patient): Female Sexual Orientation (if Verbalized by the Patient): Straight or Heterosexual Spiritual care concerns: No Exam Narrative: APPEARANCE: Well appearing, no pain, no distress, well-nourished. HEAD: normocephalic, atraumatic. EYES: PERRLA/EOMI, conjunctivae clear. NOSE: Normal no drainage THROAT: Pharynx clear, no exudate. NECK: Supple. No adenopathy, no masses. RESPIRATORY: Airway patent, respirations nonlabored. Clear to auscultation bilaterally, no rales, rhonchi, wheezing. CARDIOVASCULAR: Regular rate and rhythm without murmurs rubs or gallops. ABDOMINAL: Soft, nontender, nondistended, normal bowel sounds MUSCULOSKELETAL: Moves all extremities. Strength/ROM intact, No edema, No calf tenderness. NEURO: Alert. Cranial nerves II through XII intact. No pr
[2022-01-09] MEDS: NITROGLYCERIN SL 0.4 MG TABLET SUBLINGUAL (14:08)
[2022-01-09] MEDS: ASPIRIN 81 MG CHEWABLE TABLET 324 MG PO (14:08)
[2022-01-09 15:22] LABS: Troponin I < 0.012 ng/mL (0.000-0.034)
== END 2022-01-09 17:39 | disposition home or self-care (01) ==
PROVIDERS: Emergency Provider Emergency Medicine; PCP Family Medicine
DX: R07.9 Chest pain, unspecified (principal); G43.909 Migraine, unspecified, not intractable, without status migrainosus; M79.7 Fibromyalgia; M06.9 Rheumatoid arthritis, unspecified; Z86.19 Personal history of other infectious and parasitic diseases; Z86.16 Personal history of COVID-19
CPT/HCPCS: 36415; 70450; 71046; 80053; 83690; 84484; 85025; 85610; 85730; 93005; 99284; A9270

== ENCOUNTER 2022-02-22 09:31 | Outpatient (CLI) | payer MEDICARE, MEDICAID, SELFPAY ==
--- NOTE | 2022-02-23 23:32 | WPDPFTINT ---
PFT Procedure Performed PFT Procedure Performed Plethysmography (Lung Vol) Diffusing Cap (DLCO) Flow Vol Loop Spirometry w/o Bronchodil PFT Interpretation DOS: 02/22/2022 REQUESTING: Jb Cameron APRN REASON FOR TESTING: Dyspnea, asthma PULMONARY FUNCTION TESTS Results are reliable and reproducible. Spirometry: FEV1 is 102%, 3.07 L, normal. FVC is 107%, 3.93 L, normal. FEV1/FVC ratio is 78% normal. No bronchodilator was given. Lung volumes: Total lung capacity is 102%, 5.17 L, normal. FRC is 72%, 2.01 L, normal. ERV is 64%, 0.74 L, below normal. Residual volume is 77%, 1.24 L, normal. There is no hyperinflation or air trapping. Airway resistance is normal 96%. Diffusion: DLCO 83%. DLCO/VA 83%, normal. Flow volume loop: There is a rounded appearance to the expiratory limb which is reproducible. IMPRESSION: Normal spirometry, lung volumes and diffusion. No bronchodilator was given. Alyce Mcguire MD
== END 2022-02-22 09:32 | disposition home or self-care (01) ==
LOC: ANHPFT 09:36
PROVIDERS: PCP Family Medicine; Visit Provider Nurse Practitioner Adult Health
DX: J45.909 Unspecified asthma, uncomplicated (principal); R06.00 Dyspnea, unspecified
CPT/HCPCS: 94375; 94726; 94729

== ENCOUNTER 2022-03-22 09:57 | Outpatient (CLI) | payer MEDICARE, MEDICAID, SELFPAY ==
[2022-03-22 11:09] LABS: Alanine Aminotransferase 143 U/L (6-35); Albumin Level 4.5 g/dL (3.5-5.1); Alkaline Phosphatase 75 U/L (38-126); Anion Gap 10 mmol/L (8-16); Aspartate Amino Transferase 85 U/L (14-36); Bilirubin,Total 0.9 mg/dL (0.2-1.3); Blood Urea Nitrogen 12 mg/dL (7-17); Calcium 8.7 mg/dL (8.4-10.2); Carbon Dioxide 26 mmol/L (22-30); Chloride 103 mmol/L (98-107); Cholesterol 192 mg/dL (0-200); Estimated Glomerular Filt Rate > 60; Glucose 106 mg/dL (65-110); HDL Direct 37 mg/dL; Potassium 3.9 mmol/L (3.4-5.0); Sodium 139 mmol/L (137-145); Triglycerides 146 mg/dL (<150)
[2022-03-22 11:20] LABS: LDL Cholesterol Direct 98 mg/dL
[2022-03-22 11:23] LABS: Basophils Absolute Auto 0.1 K/mm3 (0.0-0.1); Basophils Percent Auto 0.7 % (0.2-1.2); Eosinophils Absolute Auto 0.1 K/mm3 (0-0.3); Eosinophils Percent Auto 1.4 % (0-4.4); Hematocrit 39.8 % (37.0-47.0); Hemoglobin 13.5 g/dL (12.0-15.0); Immature Granulocyte Absolute 0.03 K/mm3 (0.00-0.031); Immature Granulocyte Percent A 0.4 % (0-0.5); Lymphocytes Absolute Auto 2.24 K/mm3 (0.9-3.2); Lymphocytes Percent Auto 32.2 % (18.3-44.2); Mean Corpuscular HGB Conc 33.9 g/dl (32-36); Mean Corpuscular Hemoglobin 30.4 pg (26-34); Mean Corpuscular Volume 89.6 fl (80-100); Mean Platelet Volume 10.2 fl (7.4-10.4); Monocytes Absolute Auto 0.5 K/mm3 (0.1-0.6); Monocytes Percent Auto 7.6 % (2.6-8.5); Neutrophils Percent Auto 57.7 % (45.5-73.1); Platelet Count Result 280 k/mm3 (150-375); Red Blood Count 4.44 M/mm3 (4.2-5.4); Red Cell Distribution Width 12.8 % (11.5-14.5)
[2022-03-22 12:07] LABS: Free T4 Free Thyroxine 1.19 ng/mL (0.78-2.19); Vitamin D 25 Hydroxy 79.3 ng/mL
== END 2022-03-22 09:58 | disposition home or self-care (01) ==
LOC: ANHLAB 10:02
PROVIDERS: PCP Family Medicine; Visit Provider Family Medicine
DX: E55.9 Vitamin D deficiency, unspecified (principal); I10 Essential (primary) hypertension; E78.5 Hyperlipidemia, unspecified; R53.1 Weakness; Z13.6 Encounter for screening for cardiovascular disorders; Z13.0 Encounter for screening for diseases of the blood and blood-forming organs and certain disorders involving the immune mechanism; Z13.29 Encounter for screening for other suspected endocrine disorder; Z13.1 Encounter for screening for diabetes mellitus
CPT/HCPCS: 36415; 80053; 80061; 82306; 84439; 84443; 85025

== ENCOUNTER 2022-07-12 09:55 | Emergency (ER) | payer MEDICARE, MEDICAID, SELFPAY ==
--- NOTE | ~2022-07-12 | XR_ITS ---
XR thoracic spine 3V 07/12/2022 13:46 Indication: Mid back pain. Procedure: 3 views of the thoracic spine Comparison: Cervical spine series dated 04/18/2007. Findings: There is mild levocurvature of the thoracic spine. Vertebral body heights are maintained. N o acute fracture or traumatic malalignment. No paraspinal soft tissue abnormality. Small marginal ost eophytes are noted at multiple levels. Impression: 1: No acute abnormality of the thoracic spine. 2: Mild thoracic spondylosis. Reviewed, dictated and finalized at location A. ERING TEACHER Impression: 1: No acute abnormality of the thoracic spine. 2: Mild thoracic spondylosis.
--- NOTE | ~2022-07-12 | XR_ITS ---
EXAMINATION: XR chest 2V DATE: 07/12/2022 12:01 INDICATION: Chest tightness TECHNIQUE: PA and lateral views of the chest are obtained. COMPARISON: None available FINDINGS: The lungs are free of acute opacities. No pleural effusion or pneumothorax. The cardiomedia stinal silhouette is normal. There is mild thoracic spondylosis. Surgical clips in the right upper qu adrant are likely from prior cholecystectomy. IMPRESSION: 1. No acute cardiopulmonary abnormality. Reviewed, dictated and finalized at location A. F CATALYST OPERATOR
[2022-07-12 10:10] VITALS: BP 130/77; PULSE 71; RESP 16; TEMP 36.4; O2SAT 99
--- NOTE | 2022-07-12 10:13 | ECG_ITS ---
Measurements Intervals [place] Rate: 66 P: 28 [place]: 179 QRS: 47 QRSD: 82 T: 44 QT: 367 QTc: 384 Interpretive Statements SINUS RHYTHM NORMAL ECG NO PREVIOUS ECG AVAILABLE FOR COMPARISON Electronically Signed On 07-13-2022 7:27:14 LICSW by Jb Randall M.D.
[2022-07-12 10:43] LABS: Basophils Percent Auto 0.4 % (0.2-1.2); Eosinophils Absolute Auto 0.1 K/mm3 (0-0.3); Eosinophils Percent Auto 1.7 % (0-4.4); Hematocrit 42.9 % (37.0-47.0); Hemoglobin 14.7 g/dL (12.0-15.0); Immature Granulocyte Absolute 0.03 K/mm3 (0.00-0.031); Immature Granulocyte Percent A 0.4 % (0-0.5); Lymphocytes Absolute Auto 2.54 K/mm3 (0.9-3.2); Lymphocytes Percent Auto 34.1 % (18.3-44.2); Mean Corpuscular HGB Conc 34.3 g/dl (32-36); Mean Corpuscular Hemoglobin 30.8 pg (26-34); Mean Corpuscular Volume 89.7 fl (80-100); Mean Platelet Volume 9.8 fl (7.4-10.4); Monocytes Absolute Auto 0.8 K/mm3 (0.1-0.6); Monocytes Percent Auto 10.6 % (2.6-8.5); Neutrophils Absolute Auto 3.9 K/mm3 (1.3-6.7); Neutrophils Percent Auto 52.8 % (45.5-73.1); Platelet Count Result 233 k/mm3 (150-375); Red Blood Count 4.78 M/mm3 (4.2-5.4); Red Cell Distribution Width 12.3 % (11.5-14.5); White Blood Count 7.4 K/mm3 (4.5-10.0)
[2022-07-12 10:49] LABS: Potassium 4.1 mmol/L (3.4-5.0)
[2022-07-12 10:55] LABS: Partial Thromboplastin Time 28.9 SECONDS (22.3-36.8); Prothrombin Time 12.7 Seconds (11.1-14.7)
[2022-07-12 10:56] LABS: Alanine Aminotransferase 180 U/L (6-35); Albumin Level 4.6 g/dL (3.5-5.1); Alkaline Phosphatase 77 U/L (38-126); Anion Gap 5 mmol/L (8-16); Aspartate Amino Transferase 130 U/L (14-36); Bilirubin,Total 0.5 mg/dL (0.2-1.3); Blood Urea Nitrogen 8 mg/dL (7-17); Calcium 8.5 mg/dL (8.4-10.2); Carbon Dioxide 24 mmol/L (22-30); Chloride 104 mmol/L (98-107); Estimated CRCL calculation 121 ml/min; Estimated Glomerular Filt Rate > 60; Glucose 126 mg/dL (65-110); Lipase 141 U/L (23-300); Sodium 133 mmol/L (137-145)
[2022-07-12 11:01] LABS: Troponin I < 0.012 ng/mL (0.000-0.034)
[2022-07-12 11:49] VITALS: BP 147/99; PULSE 63; PULSE 75; RESP 16; O2SAT 99
--- NOTE | 2022-07-12 13:25 | ED.CHESTPAIN ---
HPI - Chest Pain General Chief Complaint: Chest Pain Stated Complaint: SENT IN FOR LABWORK BY PMD Time Seen by Provider: 07/12/22 11:40 History of Present Illness HPI narrative: 41-year-old female presents to the emergency room for evaluation pain between her shoulder blades. Patient states that she was seen at [facility] emergency room yesterday and had a complete cardiac work-up completed. According to records, labs, EKG and x-rays were all within normal limits. Patient was seen at her PCPs office this morning, and was told to come here for further evaluation. Patient states that she took a muscle relaxer this morning which did not alleviate her symptoms. Patient denies any chest pain or shortness of breath. Denies any radiating pain. Related Data Home Medications Medication Instructions Recorded Confirmed amlodipine 5 mg tablet 5 mg PO DAILY 10/13/20 10/14/20 bumetanide 1 mg tablet 1 mg PO DAILY 10/13/20 10/14/20 fexofenadine 30 mg tablet 180 mg PO DAILY 10/13/20 10/14/20 metoprolol succinate 100 mg 100 mg PO DAILY 10/13/20 10/14/20 tablet,extended release 24 hr Miralax 03/18/21 docusate sodium 50 mg capsule PO 03/18/21 baclofen 10 mg tablet 10 mg PO PRN pain 07/12/22 07/12/22 oseltamivir 75 mg capsule 75 mg PO 07/12/22 Allergies Allergy/AdvReac Type Severity Reaction Status Date / Time lisinopril Allergy Unknown Anaphylactic Verified 07/12/22 11:52 Shock SUMATRIPTAN SUCCINATE Allergy Mild SEIZURES Uncoded 07/12/22 11:52 Review of Systems Review of Systems: CONSTITUTIONAL: Denies fever, chills, or sweats. EYES: Denies visual changes, redness, or discharge. ENT: Denies rhinorrhea, congestion, sore throat, or otalgia. CARDIOVASCULAR: Denies chest pain, palpitations, or edema. RESPIRATORY: Denies cough or dyspnea. GASTROINTESTINAL: Denies abdominal pain, nausea, vomiting, or diarrhea. GENITOURINARY: Denies dysuria or hematuria. SKIN: Denies rash or itching. MUSCULOSKELETAL: Reports back pain NEUROLOGIC: Denies headache, numbness, dizziness, or weakness. PSYCHIATRIC: Denies anxiety or depression. [facility] Past Medical History Medical History Fibromyalgia Hepatitis C History of COVID-19 Rheumatoid arthritis Surgical History Surgical History No pertinent past surgical history Social History Social History Smoking status: Current some day smoker Tobacco type: cigarettes Additional smoking assessment comments: variable pattern Gender identity (if verbalized by the patient): Female Sexual Orientation (if Verbalized by the Patient): Straight or Heterosexual Spiritual care concerns: No Exam Narrative: GENERAL: Well-appearing, well-nourished, no physical limitations, and in no acute distress. HEAD: Normocephalic, atraumatic. EYES: Conjunctivae normal, PERRLA and EOMI. CHEST: Clear to auscultation. No respiratory distress. No wheezes rales or rhonchi. HEART: Regular rate and rhythm. No murmur heard. Normal peripheral pulses. BACK: No CVA tenderness; tenderness to the medial aspects of bilateral trap muscles no midline thoracic tenderness, step-offs, bony abnormality; FROM EXTREMITIES: Normal range of motion. No edema. No clubbing or cyanosis SKIN: Warm, dry, no rash. No noted wounds NEURO: No focal deficits. Alert and oriented x3. MAEW. CN's II-XI intact bilaterally, normal gait PSYCH: Cooperative. Normal mood and affect. Course Vital Signs Vital signs: Vital Signs Temperature 36.4 C L 07/12/22 10:10 Pulse Rate 71 07/12/22 10:10 Respiratory Rate 16 07/12/22 10:10 Blood Pressure 130/77 07/12/22 10:10 Pulse Oximetry 99 07/12/22 10:10 Temperature 36.4 C L 07/12/22 10:10 Pulse Rate 75 07/12/22 13:47 Respiratory Rate 15 07/12/22 13:47 Blood Pressure 133/89 07/12/22 13:47 Pulse Oximetry 100
[2022-07-12 13:47] VITALS: BP 133/89; PULSE 75; RESP 15; O2SAT 100
[2022-07-12 14:06] LABS: Troponin I < 0.012 ng/mL (0.000-0.034)
[2022-07-12 14:35] VITALS: BP 139/84; PULSE 71; RESP 16; O2SAT 98
== END 2022-07-12 14:35 | disposition home or self-care (01) ==
PROVIDERS: Emergency Medicine; Emergency Provider Nurse Practitioner Family; PCP Family Medicine
DX: M54.6 Pain in thoracic spine (principal); R07.9 Chest pain, unspecified; M06.9 Rheumatoid arthritis, unspecified; M79.7 Fibromyalgia; Z86.16 Personal history of COVID-19; Z86.19 Personal history of other infectious and parasitic diseases; F17.210 Nicotine dependence, cigarettes, uncomplicated; M47.814 Spondylosis without myelopathy or radiculopathy, thoracic region
CPT/HCPCS: 36415; 71046; 72072; 80053; 83690; 84484; 85025; 85610; 85730; 93005; 99284

== ENCOUNTER 2022-08-16 14:02 | Outpatient (CLI) | payer MEDICARE, MEDICAID, SELFPAY ==
[2022-08-16 15:54] LABS: Amphetamine Screen Urine Negative (Negative); Barbiturate Screen Urine Negative (Negative); Benzodiazepines Screen Urine Negative (Negative); Cannabinoid Screen Urine Negative (Negative); Cocaine Screen Urine Negative (Negative); Methadone Screen Urine Negative (Negative); Opiate Screen Urine Negative (Negative); Phencyclidine Screen Urine Negative (Negative)
[2022-08-19 15:06] LABS: Hepatitis C Viral RNA PCR 39900 IU/mL
[2022-08-22 07:30] LABS: HCV Genotype, LiPA 3
[2022-08-23 17:52] LABS: ALT 164 U/L (6-29); Alpha-2-Macroglobulin 251 mg/dL (106-279); Apolipoprotein A1 166 mg/dL (101-198); Fibrosis Score 0.34; Fibrosis Stage F1-F2; GGT 89 U/L (3-55); Haptoglobin 115 mg/dL (43-212); Necroinflammat Act Grade A3; Total Bilirubin 0.8 mg/dL (0.2-1.2)
== END 2022-08-16 14:03 | disposition home or self-care (01) ==
PROVIDERS: PCP Family Medicine; Visit Provider Internal Medicine Gastroenterology
DX: B19.20 Unspecified viral hepatitis C without hepatic coma (principal); R74.8 Abnormal levels of other serum enzymes; M79.7 Fibromyalgia
CPT/HCPCS: 36415; 80307; 81596; 87522

== ENCOUNTER 2022-08-20 11:04 | Outpatient (CLI) | payer MEDICARE, MEDICAID, SELFPAY ==
--- NOTE | ~2022-08-20 | CT_ITS ---
EXAMINATION: CT thoracic spine wo con DATE: 08/20/2022 11:35 INDICATION: PAIN IN T SPINE . TECHNIQUE: Computed tomography (CT) of the thoracic spine was performed without intravenous contrast. Automated exposure control and iterative reconstruction technique were employed. The dose-length pro duct was 1399.74 mGy-cm. COMPARISON: X-ray T-spine 07/12/2022. FINDINGS: Normal vertebral body alignment. Vertebral body heights are maintained. Facets are aligned and overlapping. Multilevel mild disc space narrowing and marginal osteophytosis, with bridging anter olateral osteophytes at multiple levels. Mild multilevel facet hypertrophy. No significant central ca nal or neural foraminal narrowing. IMPRESSION: 1. 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 2. Mild multilevel facet arthropathy. Reviewed, dictated and finalized at location K. MOMETER TESTER ENGINE
== END 2022-08-20 11:05 | disposition home or self-care (01) ==
LOC: ANHIMG 11:07
PROVIDERS: PCP Family Medicine; Visit Provider Nurse Practitioner Adult Health
DX: M43.06 Spondylolysis, lumbar region (principal); M51.34 Other intervertebral disc degeneration, thoracic region; M12.88 Other specific arthropathies, not elsewhere classified, other specified site
CPT/HCPCS: 72128

== ENCOUNTER 2022-12-06 12:14 | Outpatient (CLI) | payer MEDICARE, MEDICAID, SELFPAY ==
--- NOTE | ~2022-12-06 | XR_ITS ---
Supine and upright views of the abdomen Clinical history: Constipation, irritable bowel syndrome COMPARISON: 09/10/2013 Findings: Bowel gas pattern is nonspecific. No evidence for obstruction or free air. Cholecystectomy clips noted. No abnormal mass lesion or calcification is seen. Osseous structures are intact. Impression: No significant abnormality is seen. Reviewed, dictated and finalized at [facility]. Impression: No significant abnormality is seen.
== END 2022-12-06 12:15 | disposition home or self-care (01) ==
PROVIDERS: PCP Family Medicine; Visit Provider Internal Medicine Gastroenterology
DX: K58.1 Irritable bowel syndrome with constipation (principal)
CPT/HCPCS: 74018

== ENCOUNTER 2024-04-20 14:01 | Inpatient (IN) | payer MEDICARE, MEDICAID, SELFPAY ==
--- NOTE | ~2024-04-20 | CT_ITS ---
EXAMINATION: CT abdomen pelvis w con DATE: 04/23/2024 14:00 INDICATION: Perforated diverticulitis. Lower abdominal pain. TECHNIQUE: Computed tomography (CT) of the abdomen and pelvis was performed with 100 mL Omnipaque-350 intravenous contrast. Automated exposure control and iterative reconstruction technique were employe d. The dose-length product was 1659.88 mGy-cm. COMPARISON: 04/20/2024 FINDINGS: Mild dependent atelectasis in bilateral lower lobes. Heart size is normal. No pericardial or pleural effusion. Cholecystectomy clips the gallbladder fossa. Liver, spleen, pancreas, bilateral adrenal gla nds and kidneys are normal. There is inflammatory stranding surrounding a couple diverticula at the j unction of the descending and sigmoid colon consistent with diverticulitis. Minimal amount of either reactive or physiologic free fluid in the cul-de-sac. No abscess or free intraperitoneal gas. Small b owel and appendix are normal. Bladder and uterus are unremarkable. There are a couple bilateral ovari an follicles, the larger on the right measuring 2.1 cm. No pathologically enlarged abdominal or pelvi c lymphadenopathy. L5 spondylolysis with bilateral pars intra-articular is defects, 6 mm anterolisthe sis L5 on S1 and moderate to severe associated disc height loss. Otherwise mild lumbar and mild to mo derate thoracic spondylosis. IMPRESSION: 1. Radiographically uncomplicated diverticulitis at a couple diverticula at the junction of the desce nding and sigmoid colon. No abscess or free intraperitoneal gas. Reviewed, dictated and finalized at location B. IMPRESSION: 1. Radiographically uncomplicated diverticulitis at a couple diverticula at the junction of the descending and sigmoid colon. No abscess or free intraperitone al gas.
--- NOTE | ~2024-04-20 | CT_ITS ---
EXAMINATION: CT abdomen pelvis w con DATE: 04/20/2024 17:24 INDICATION: ab pain TECHNIQUE: Computed tomography (CT) of the abdomen and pelvis was performed with 100 mL Omnipaque-350 intravenous contrast. Automated exposure control and iterative reconstruction technique were employe d. The dose-length product was 1007.71 mGy-cm. COMPARISON: 11/23/2020. FINDINGS: Lower thorax: Minimal lingular scar/atelectasis Liver: Normal. Biliary/Gallbladder: Gallbladder is absent. No bile duct dilation. Pancreas: No mass or duct dilation. Spleen: Normal. Adrenals:No mass. Kidneys: No suspicious mass, obstructing stone, or hydronephrosis. GI tract: Mild distal esophageal and gastric wall edema. Scattered diverticuli. Inflammatory strandin g and segmental wall thickening at the distal descending colon, with a tiny bubble of possibly extral uminal gas adjacent to one of several inflamed diverticulum. No small or large bowel dilation. Normal appendix. Mesentery/Peritoneum: No ascites, mass, or free air. Retroperitoneum: No mass. Pelvis: Pelvic organs are within normal limits. Soft Tissues: Soft tissues and body wall unremarkable. Bones: No acute osseous finding. Chronic grade 1 anterolisthesis at L5-S1 due to bilateral L5 pars d efects. IMPRESSION: Mild esophagitis/gastritis. Acute distal descending colonic diverticulitis, likely complicated by contained microperforation. Reviewed, dictated and finalized at location [facility].
[2024-04-20 14:05] VITALS: BP 141/87; PULSE 94; RESP 18; TEMP 36.1; O2SAT 100
[2024-04-20 16:32] LABS: BEDSIDEPREGUCG Negative (Negative)
[2024-04-20 16:37] LABS: Add Urine Microscopic? YES; Appearance Urine Clear (Clear); Bacteria Urine None Seen /hpf; Bilirubin Urine Negative (Negative); Blood Urine Negative (Negative); Color Urine Yellow (Yellow); Glucose Urine UA Negative (Negative); Ketones Urine Negative (Negative); Leukocyte Esterase Ur Trace LEU/UL (Negative); Nitrate Urine Negative (Negative); Non Pathogenic Casts 0-2; Protein Urine Negative (Negative); RBC Urine 0-2 /hpf (0-2); Specific Grav Ur 1.006 (1.001-1.035); Squamous Epithelial Cell Urine None Seen /hpf (Few); WBC Urine 0-5 /hpf (0-3); pH Urine 6.5 (5.0-9.0)
[2024-04-20 16:59] VITALS: BP 140/100; PULSE 76; RESP 16; TEMP 36.3; O2SAT 97
[2024-04-20 17:01] LABS: Basophils Absolute Auto 0.1 K/mm3 (0.0-0.1); Basophils Percent Auto 0.5 % (0.2-1.2); Eosinophils Absolute Auto 0.1 K/mm3 (0-0.3); Hematocrit 41.7 % (37.0-47.0); Hemoglobin 14.5 g/dL (12.0-15.0); Immature Granulocyte Absolute 0.02 K/mm3 (0.00-0.031); Immature Granulocyte Percent A 0.2 % (0-0.5); Lymphocytes Absolute Auto 2.49 K/mm3 (0.9-3.2); Lymphocytes Percent Auto 27.2 % (18.3-44.2); Mean Corpuscular HGB Conc 34.8 g/dl (32-36); Mean Corpuscular Volume 89.1 fl (80-100); Mean Platelet Volume 9.7 fl (7.4-10.4); Monocytes Absolute Auto 0.8 K/mm3 (0.1-0.6); Monocytes Percent Auto 8.9 % (2.6-8.5); Neutrophils Absolute Auto 5.7 K/mm3 (1.3-6.7); Neutrophils Percent Auto 62.2 % (45.5-73.1); Platelet Count Result 243 k/mm3 (150-375); Red Blood Count 4.68 M/mm3 (4.2-5.4); White Blood Count 9.2 K/mm3 (4.5-10.0)
[2024-04-20 17:18] LABS: Lactic Acid Reflex 0.7 mmol/L (0.7-2.0)
[2024-04-20 17:26] LABS: Alanine Aminotransferase 140 U/L (6-35); Albumin Level 4.6 g/dL (3.5-5.1); Alkaline Phosphatase 82 U/L (38-126); Anion Gap 12 mmol/L (4-12); Aspartate Amino Transferase 114 U/L (14-36); Bilirubin,Total 1.3 mg/dL (0.2-1.3); Blood Urea Nitrogen 7 mg/dL (7-17); Calcium 9.1 mg/dL (8.4-10.2); Carbon Dioxide 26 mmol/L (22-30); Chloride 99 mmol/L (98-107); Estimated CRCL calculation 121 ml/min; Estimated Glomerular Filt Rate > 60; Glucose 91 mg/dL (65-110); Lipase 119 U/L (23-300); Potassium 3.3 mmol/L (3.4-5.0); Sodium 137 mmol/L (137-145)
[2024-04-20 17:36] LABS: Estimated CRCL calculation 105 ml/min; Estimated Glomerular Filt Rate > 60
--- NOTE | 2024-04-20 18:23 | ED.ABDPAIN ---
HPI - Abdominal Pain General Chief Complaint: Abdominal Pain Stated Complaint: IBS FLARE Time Seen by Provider: 04/20/24 16:36 History of Present Illness HPI narrative: 33-year-old female presenting to the emergency department for evaluation for left lower abdominal pains been going on since /Saturday. Patient were ports that the pain has been worsening. Does have history of IBS but states this feels different. Patient initially thought this may be was her IBS that she had too much dairy but patient states that typical IBS pain resolved after day or so and this pain has not yet resolved. Patient does typically follow-up Dr. Carr. Related Data Home Medications Medication Instructions Recorded Confirmed amlodipine 5 mg tablet 5 mg PO DAILY 10/13/20 10/14/20 bumetanide 1 mg tablet 1 mg PO DAILY 10/13/20 10/14/20 fexofenadine 30 mg tablet 180 mg PO DAILY 10/13/20 10/14/20 metoprolol succinate 100 mg 100 mg PO DAILY 10/13/20 10/14/20 tablet,extended release 24 hr Miralax 03/18/21 docusate sodium 50 mg capsule PO 03/18/21 baclofen 10 mg tablet 10 mg PO PRN pain 07/12/22 07/12/22 Allergies Allergy/AdvReac Type Severity Reaction Status Date / Time lisinopril Allergy Unknown Anaphylactic Verified 03/21/23 13:44 Shock SUMATRIPTAN SUCCINATE Allergy Mild SEIZURES Uncoded 03/21/23 13:44 Review of Systems Review of Systems: All systems reviewed & are unremarkable except as noted in HPI and below PMFSH Past Medical History Medical History (Updated 04/20/24 @ 18:23 by Maged Collado MD) Bloating Fibromyalgia Hepatitis Hepatitis C History of COVID-19 Irritable bowel syndrome with constipation Rheumatoid arthritis Surgical History Surgical History No pertinent past surgical history Social History Social History Smoking status: Current some day smoker Tobacco type: cigarettes Additional smoking assessment comments: variable pattern Alcohol intake: current Alcohol use details: social Substance use: never Living arrangements: with family Gender identity (if verbalized by the patient): Female Sexual Orientation (if Verbalized by the Patient): Straight or Heterosexual Spiritual care concerns: No Exam Narrative: APPEARANCE: Well appearing, no pain, no distress, well-nourished. HEAD: normocephalic, atraumatic. EYES: PERRLA/EOMI, conjunctivae clear. NOSE: Normal no drainage EARS:TMS clear with good light reflex. THROAT: Pharynx clear, no exudate. NECK: Supple. No adenopathy, no masses. RESPIRATORY: Airway patent, respirations nonlabored. Clear to auscultation bilaterally, no rales, rhonchi, wheezing. CARDIOVASCULAR: Regular rate and rhythm without murmurs rubs or gallops. ABDOMINAL: Left lower quadrant tenderness to palpation MUSCULOSKELETAL: Moves all extremities. Strength/ROM intact, No edema, No calf tenderness. NEURO: Alert. Cranial nerves II through XII intact. Good gait. Good coordination SKIN: Warm, dry. Normal Color Course Course Emergency Course: Surgery was consulted, patient was started on Zosyn and patient was admitted to the hospitalist for diverticulitis with microperforation Vital Signs Vital signs: Vital Signs Temperature 96.9 F L 04/20/24 14:05 Pulse Rate 94 04/20/24 14:05 Respiratory Rate 18 04/20/24 14:05 Blood Pressure 141/87 H 04/20/24 14:05 Pulse Oximetry 100 04/20/24 14:05 Oxygen Delivery Room Air 04/20/24 14:05 Temperature 97.4 F L 04/20/24 16:59 Pulse Rate 85 04/20/24 18:59 Respiratory Rate 20 04/20/24 18:59 Blood Pressure 140/84 04/20/24 18:59 Pulse Oximetry 97 04/20/24 18:59 Oxygen Delivery Room Air 04/20/24 14:05 MDM - Abdominal Pain Lab Data 04/20/24 16:55 04/20/24 17:14 Labs: Lab Results 04/20/24 04/20/24 04/20/24 Range/Units 16:25 16:
[2024-04-20] MEDS: MORPHINE SULFATE (*CRX) 2 MG/ML INJ IV PUSH (18:54)
[2024-04-20] MEDS: SODIUM CHLORIDE 0.9% IV 1,000 ML 999 ML IV CONT (18:54)
[2024-04-20] MEDS: PIPERACILLN/TAZ 3.375GM/NS50ML 3.375 GM/50 ML BAG IVPB ×2 (18:54→23:22)
[2024-04-20 18:59] VITALS: BP 140/84; PULSE 85; RESP 20; O2SAT 97
[2024-04-20] MEDS: ONDANSETRON INJ 4 MG/2 ML VIAL IV PUSH ×2 (18:59→22:35)
[2024-04-20] MEDS: DICYCLOMINE HCL 10 MG CAPSULE 20 MG PO (19:38)
--- NOTE | 2024-04-20 21:02 | ADMGEN ---
This patient, Maria Alejandra Patel, was admitted to Medical Room 349-01. Patient/family oriented to hospital policies and general routines including ID bracelet, bed and alarms, visiting hours, pain management, procedures, bathroom and other care routines, personal items, smoking policy, room service/diet, and visiting hours. Information on how to activate the Rapid Response Team has been discussed. Patient/Family are encouraged to report perceived risks to care and to ask questions if they do not understand what they are told or what they should do.
[2024-04-20 21:17] VITALS: BP 126/73; PULSE 69; RESP 20; TEMP 36.6; O2SAT 97; BMI 36.2
[2024-04-20] MEDS: HYDROmorphone HCL INJ (*CRX) 1 MG/ML SYR 0.5 MG IV PUSH (22:35)
--- NOTE | 2024-04-20 22:57 | PM.IMHP ---
H&P: HPI History of Present Illness Date/Time: 04/20/24 21:30 Chief Complaint: Abdominal pain. Narrative: This is a pleasant 43-year-old female with irritable bowel syndrome-constipation, rheumatoid arthritis, hepatitis-C, and hypertension who presented to the emergency department for evaluation of abdominal pain. The patient provides the following history. She has not been feeling well since last with constant, dull aching abdominal pain which seems to have settled more so in the suprapubic and left lower quadrant region as the days have progressed. It is worse with movement and palpation and she has not noticed any significant alleviating factors. The symptoms are similar to his previous IBS flares and she has not been the eating much aside from broth although that has not helped her symptoms. She has not had a good bowel movement since before and she feels bloated and pressure-like discomfort in the rectum. She has been taking Gas-X, Tums, and Linzess without much benefit. She denies fever, nausea, vomiting, melena, and hematochezia. In the ED: She was afebrile on arrival with stable vital signs. Labs were significant for a WBC count of 9.2, potassium 3.3, AST 114, ALT 140. CT of the abdomen and pelvis showed mild esophagitis/gastritis and acute distal descending colonic diverticulitis, likely complicated by contained microperforation. She was started on Zosyn is being admitted in this setting for further treatment and monitoring. Review of Systems Review of Systems: 12 systems were reviewed and are negative except for as per HPI. [facility] Past Medical History Medical History (Updated 04/20/24 @ 23:08 by Jazmyn Eduardo PA-C) Fibromyalgia Hepatitis C History of COVID-19 Hypertension Irritable bowel syndrome with constipation Rheumatoid arthritis Surgical History Surgical History (Updated 04/20/24 @ 23:03 by Jazmyn Eduardo PA-C) History of cholecystectomy History of endometrial ablation History of tubal ligation Family History Family History Son Asthma Father Chronic obstructive pulmonary disease Mother Hypertension Sibling Hypertension Social History Social History (Updated 04/20/24 @ 23:04 by Jazmyn Eduardo PA-C) Social History: Surrogate medical decision maker: Frank Ball, daughter. Code status: Full code. Smoking status: Current every day smoker Tobacco type: e-cigarettes/vaping Alcohol intake: current Drinks per week: 3 Alcohol use details: Social alcohol use in moderation. Substance use: never Do You Feel Safe in your Home?: Yes Lack of Transportation: No Lack of Food: Never True Current Housing: I Have Housing Concerned About Future Housing: No Difficulty Paying Gas/Electric Bills: No Difficulty Paying for Meds: No Currently Unemployed: No Education: High School Diploma/GED Difficulty w/ Childcare or Family Care: No Living arrangements: with family Spiritual care concerns: No Meds Home Medications and Allergies Home Medications Medication Instructions Recorded Confirmed Type albuterol sulfate 2.5 mg/3 mL 2.5 mg (3 mL) inhalation Q4H PRN 10/19/19 04/20/24 Rx (0.083 %) solution for nebulization shortness of breath or wheezing #15 mL amlodipine 5 mg tablet 5 mg PO DAILY 10/13/20 04/20/24 History bumetanide 1 mg tablet 1 mg PO DAILY 10/13/20 04/20/24 History fexofenadine 30 mg tablet 180 mg PO DAILY 10/13/20 04/20/24 History metoprolol succinate 100 mg 50 mg PO DAILY 10/13/20 04/20/24 History tablet,extended release 24 hr dicyclomine 20 mg tablet 20 mg PO TID PRN Abdominal 11/23/20 04/20/24 Rx cramping #10 tabs Miralax 1 cap PO DAILY PRN Constipation 03/18/21 04/20/24 History docusate sodium 50 mg capsule 50 mg PO DAILY 03/18/21 04/20/24 History ondansetron HCl 4 mg tablet 4 mg PO Q8H PRN nausea and 03/18/21 04/20/24 Rx (Zofran) vomiting #15 tabs
[2024-04-20] MEDS: SODIUM CHLORIDE 0.9% IV 1,000 ML 100 ML IV CONT (23:20)
[2024-04-21] MEDS: BACLOFEN 5 MG TABLET PO ×3 (00:10→21:41)
[2024-04-21] MEDS: POTASSIUM CHLORIDE 20 MEQ PACKET (FOR LIQUID) PO (00:35)
[2024-04-21] MEDS: ONDANSETRON INJ 4 MG/2 ML VIAL IV PUSH ×2 (04:47→21:44)
[2024-04-21] MEDS: HYDROcodone/acetaminophen (*CRX) 5-325 MG TABLET 1 TAB PO (05:04)
[2024-04-21] MEDS: SIMETHICONE 125 MG CHEW TAB PO ×4 (05:04→20:26)
[2024-04-21] MEDS: PIPERACILLN/TAZ 3.375GM/NS50ML 3.375 GM/50 ML BAG IVPB ×4 (05:04→23:20)
[2024-04-21 05:54] LABS: Hematocrit 36.7 % (37.0-47.0); Hemoglobin 12.5 g/dL (12.0-15.0); Mean Corpuscular HGB Conc 34.1 g/dl (32-36); Mean Corpuscular Volume 91.1 fl (80-100); Mean Platelet Volume 9.9 fl (7.4-10.4); Platelet Count Result 218 k/mm3 (150-375); Red Blood Count 4.03 M/mm3 (4.2-5.4); White Blood Count 8.9 K/mm3 (4.5-10.0)
[2024-04-21 06:00] VITALS: BP 111/66; PULSE 74; RESP 20; TEMP 36.5; O2SAT 97
[2024-04-21 06:14] LABS: Alanine Aminotransferase 119 U/L (6-35); Albumin Level 3.7 g/dL (3.5-5.1); Alkaline Phosphatase 68 U/L (38-126); Anion Gap 9 mmol/L (4-12); Aspartate Amino Transferase 91 U/L (14-36); Bilirubin,Total 1.6 mg/dL (0.2-1.3); Blood Urea Nitrogen 6 mg/dL (7-17); Calcium 8.2 mg/dL (8.4-10.2); Carbon Dioxide 26 mmol/L (22-30); Chloride 101 mmol/L (98-107); Estimated CRCL calculation 100 ml/min; Estimated Glomerular Filt Rate > 60; Glucose 130 mg/dL (65-110); Magnesium 1.8 mg/dL (1.6-2.3); Potassium 3.6 mmol/L (3.4-5.0); Sodium 136 mmol/L (137-145)
[2024-04-21 07:51] LABS: INR 1.1; Partial Thromboplastin Time 29.2 Seconds (22.3-36.8); Prothrombin Time 14.4 Seconds (11.1-14.7)
[2024-04-21 08:42] VITALS: PULSE 71
[2024-04-21] MEDS: THERAPEUTIC MULTIVITAMINS/MINERALS TAB (*BKC) 1 TABLET PO (08:42)
[2024-04-21] MEDS: DOCUSATE SODIUM 100 MG CAPSULE PO (08:42)
[2024-04-21] MEDS: METOPROLOL SUCCINATE EXT REL 50 MG TABCR PO (08:42)
[2024-04-21] MEDS: amLODIPine BESYLATE 5 MG TABLET PO (08:42)
[2024-04-21] MEDS: LORATADINE 10 MG TABLET PO (08:42)
[2024-04-21] MEDS: BUMETANIDE 1 MG TABLET PO (08:42)
--- NOTE | 2024-04-21 11:24 | PM.CNGS ---
Assessment and Plan Assessment and plan (1) Diverticulitis: Code(s): K57.92 - Diverticulitis of intestine, part unspecified, without perforation or abscess without bleeding Status: Acute Assessment and Plan: CT reviewed and shows evidence of acute diverticulitis of the distal descending colon with possible microperforation. No evidence of large free intraperitoneal air or abscess. No peritoneal signs on exam. White blood cell count normal. No indication for any urgent surgical intervention. Would recommend to continue conservative management with IV antibiotics and analgesics. Will start advancing diet as tolerated. Repeat labs and abdominal exam again tomorrow. (2) Transaminitis: Code(s): R74.01 - Elevation of levels of liver transaminase levels Status: Acute (3) Hepatitis C: Code(s): B19.20 - Unspecified viral hepatitis C without hepatic coma Status: Acute Assessment and Plan: Was intolerant to treatment on 2 occasions in the past year and has currently put the treatment for her hepatitis-C on hold due to adverse reactions. Following with GI. (4) Irritable bowel syndrome with constipation: Code(s): K58.1 - Irritable bowel syndrome with constipation Status: Acute Assessment and Plan: Continue to follow-up with GI as recommended. Last colonoscopy was 3 years ago. (5) Smoker: Code(s): F17.200 - Nicotine dependence, unspecified, uncomplicated Status: Acute Assessment and Plan: Encouraged cessation Plan I have discussed the patient's case and plan of care with Dr. Brody. History of Present Illness Consult details Consult date: 04/21/24 Reason for consult: other (Diverticulitis with micro perforation) Requesting physician: Maged Collado MD Narrative: This is a 43-year-old woman with a history of IBS-C, anxiety, rheumatoid arthritis, hepatitis-C, and hypertension, who we have been asked to see in surgical consultation for diverticulitis with micro perforation. The patient presented to the ED last night due to complaints of abdominal pain. She reports an onset of upper abdominal pain about 4 days ago. She initially attributed her symptoms to constipation and tried taking her Colace and MiraLax. The following day she had a lot of bloating and could not pass any flatus. She felt constipated and tried taking Linzess. Over the weekend, her bowels started moving with liquid stool, but her abdominal pain began to migrate into the suprapubic area. She reports pain was aggravated by straining with voiding. She had nausea, but no vomiting, and back to herself off to a clear liquid diet. She attempted going to an urgent care, who tested her urine and was negative for UTI. She was tender on exam and was instructed to go to the ED for evaluation. [place] and they also recommended she go to the emergency department. In the ER, her white blood cell count was normal. CT scan of the abdomen and pelvis showed acute diverticulitis of the descending colon with possibly 1 small foci of extraluminal gas consistent with possible microperforation. She was admitted and started on IV Zosyn. She is currently on clear liquids. She is now seen on the medical floor and consultation. She reports her suprapubic pain has improved some since admission. She is reporting upper abdominal pain, that she believes is a side effect of narcotics that she reports having similar pain in the past. She has been afebrile. White blood cell count is still normal this morning. Denies a history of diverticulitis. Previous abdominal surgery includes a laparoscopic cholecystectomy about 20 years ago with what sounds like a postoperative bile leak requiring an exploratory laparotomy shortly after her cholecystectomy. She reports her last colonoscopy was about 3 years ago with benign polypectomy. Review of Systems Review of Systems: All systems reviewed &
--- NOTE | 2024-04-21 11:31 | PM.IMPN ---
Progress Note: A&P Assessment and Plan (1) Diverticulitis: Code(s): K57.92 - Diverticulitis of intestine, part unspecified, without perforation or abscess without bleeding Status: Acute Assessment and Plan: Continue zosyn Surgery has consulted and they are making recommendations. Consider GI eval given she is a patient of [facility]. Clear liquid diet for now PRN pain meds (2) Hypokalemia: Code(s): E87.6 - Hypokalemia Status: Acute Assessment and Plan: Resolved Trend (3) Transaminitis: Code(s): R74.01 - Elevation of levels of liver transaminase levels Status: Acute Assessment and Plan: Suspect this is actually chronic as pt has hx of Hepatitis C. Trend labs (4) Hepatitis C: Code(s): B19.20 - Unspecified viral hepatitis C without hepatic coma Status: Acute Assessment and Plan: Chronic in nature. (5) Hypertension: Code(s): I10 - Essential (primary) hypertension Status: Acute Assessment and Plan: Continue home medications and monitor. Time Spent With Patient Time with patient: 25 - 35 minutes Subjective Date/time seen: 04/21/24 11:20 Interval history: This very pleasant pt was examined at the bedside today after being admitted to the hospital for acute Diverticulitis and area of concern for small microperforation. She has been consulted on by surgery and her pain is currently stable and managed well. She has no worsening complaints or symptoms. She remains on zosyn and currently is only consuming clears. Review of Systems Review of Systems: All systems reviewed & are unremarkable except as noted in HPI and below Exam Narrative: General: Nontoxic-appearing female sitting up in bed in mild discomfort. Weight: 95.7 kg. BMI: 36.2. HEENT: PERRL, EOMI. Sclera anicteric. Oral mucosa moist. Neck: Supple. Respiratory: Lungs are clear to auscultation bilaterally. Cardiovascular: Regular rate and rhythm with S1-S2. No murmur, rub, or gallop. Gastrointestinal: Abdomen is soft and slightly distended with hypoactive bowel sounds. She is tender to palpation throughout the lower abdomen, more so on the left. No guarding or rebound tenderness. Skin: Warm and dry. Extremities: No cyanosis, clubbing, or edema. Radial and pedal pulses intact. Neurological: Alert. Cranial nerves 2-12 are grossly intact. No gross focal deficits to casual conversation. Psychiatric: Pleasant and cooperative with normal mood and affect. Judgment and insight intact. Objective Data Vital Signs Vital Signs: Vital Signs - 24 hr 04/20/24 14:05 04/20/24 16:59 04/20/24 18:59 Temperature 96.9 F L 97.4 F L Pulse Rate 94 76 85 Respiratory Rate 18 16 20 Blood Pressure 141/87 H 140/100 H 140/84 Pulse Oximetry 100 97 97 Oxygen Delivery Room Air 04/20/24 21:14 04/20/24 21:17 04/21/24 06:00 Temperature 97.9 F 97.7 F Pulse Rate 69 74 Respiratory Rate 20 20 Blood Pressure 126/73 111/66 Pulse Oximetry 97 97 Oxygen Delivery Room Air 04/21/24 08:42 04/21/24 08:00 Temperature Pulse Rate 71 Respiratory Rate Blood Pressure Pulse Oximetry Oxygen Delivery Room Air Intake/Output Intake/Output: Intake & Output 04/18/24 04/19/24 04/20/24 04/21/24 23:59 23:59 23:59 23:59 Intake Total 1100 290 Output Total 400 Balance 1100 -110 Meds/Results Medications: Active Medications Generic Name Dose Route Start Last Admin Trade Name Freq PRN Reason Stop Dose Admin Hydrocodone Bitart/Acetaminophen 1 tab 04/21/24 04:56 04/21/24 05:04 Hydrocodone/Acetaminophen (*Crx) 5-325 Mg Tablet PO 1 tab Q4H PRN Administration Pain Rated 4-6 Al Hydrox/Mg Hydrox/Simethicone 30 ml 04/21/24 11:24 Mag Hydrox/Al Hydrox/Simeth 30 Ml Udc PO Q6H PRN Indigestion Albuterol 2.5 mg 04/20/24 23:11 Albuterol Sulfate Neb 2.5 Mg/3 Ml Inh INHALATION Q4H PRN shortness of breat
[2024-04-21] MEDS: IBUPROFEN 600 MG TABLET PO ×2 (14:27→20:26)
[2024-04-21] MEDS: polyethylene glycoL 3350 17 GM POWD.PACK PO (14:28)
[2024-04-21 15:07] VITALS: BP 114/68; PULSE 75; RESP 18; TEMP 36.3; O2SAT 100
[2024-04-21 20:24] VITALS: BP 116/78; PULSE 78; RESP 18; TEMP 36.6; O2SAT 100
[2024-04-22] MEDS: PIPERACILLN/TAZ 3.375GM/NS50ML 3.375 GM/50 ML BAG IVPB ×4 (05:28→23:20)
[2024-04-22] MEDS: IBUPROFEN 600 MG TABLET PO ×3 (05:30→20:43)
[2024-04-22 05:33] VITALS: BP 104/75; PULSE 69; RESP 16; TEMP 36.6; O2SAT 99
[2024-04-22 07:50] LABS: Hematocrit 36.3 % (37.0-47.0); Hemoglobin 12.3 g/dL (12.0-15.0); Mean Corpuscular HGB Conc 33.9 g/dl (32-36); Mean Corpuscular Hemoglobin 30.9 pg (26-34); Mean Corpuscular Volume 91.2 fl (80-100); Mean Platelet Volume 9.8 fl (7.4-10.4); Platelet Count Result 231 k/mm3 (150-375); Red Blood Count 3.98 M/mm3 (4.2-5.4); White Blood Count 7.2 K/mm3 (4.5-10.0)
[2024-04-22 08:14] LABS: Alanine Aminotransferase 88 U/L (6-35); Albumin Level 3.7 g/dL (3.5-5.1); Alkaline Phosphatase 58 U/L (38-126); Anion Gap 7 mmol/L (4-12); Aspartate Amino Transferase 53 U/L (14-36); Bilirubin,Total 0.9 mg/dL (0.2-1.3); Blood Urea Nitrogen 5 mg/dL (7-17); Calcium 8.4 mg/dL (8.4-10.2); Carbon Dioxide 30 mmol/L (22-30); Chloride 99 mmol/L (98-107); Estimated CRCL calculation 101 ml/min; Estimated Glomerular Filt Rate > 60; Glucose 179 mg/dL (65-110); Potassium 3.6 mmol/L (3.4-5.0); Sodium 136 mmol/L (137-145)
[2024-04-22] MEDS: DOCUSATE SODIUM 100 MG CAPSULE PO (08:19)
[2024-04-22] MEDS: SIMETHICONE 125 MG CHEW TAB PO ×4 (08:19→20:43)
[2024-04-22] MEDS: amLODIPine BESYLATE 5 MG TABLET PO (08:19)
[2024-04-22] MEDS: LORATADINE 10 MG TABLET PO (08:19)
[2024-04-22] MEDS: METOPROLOL SUCCINATE EXT REL 50 MG TABCR PO (08:19)
[2024-04-22] MEDS: BUMETANIDE 1 MG TABLET PO (08:20)
[2024-04-22 09:15] VITALS: O2SAT 98
--- NOTE | 2024-04-22 11:17 | PM.PNGS ---
Progress Note: A&P Assessment and Plan (1) Diverticulitis of colon with perforation: Code(s): K57.20 - Diverticulitis of large intestine with perforation and abscess without bleeding Status: Acute Assessment and Plan: exam improved, will advance to low fiber diet, continue antibiotics, if tolerating diet can switch to p.o. antibiotics and discharge home on low-fat diet, follow-up in 2 weeks Subjective Subjective Date/Time Seen: 04/22/24 11:17 Interval history: feels much improved, lotus fld, +bowel fxn Review of Systems Review of Systems: All systems reviewed & are unremarkable except as noted in HPI and below Exam Const: General: cooperative, comfortable and no acute distress Resp: Auscultation: clear to auscultation bilaterally Cardio: Rate: regular rate Rhythm: regular rhythm GI: Inspection: normal to inspection and distended GI Palp: Yes abdominal tenderness, Yes Soft to palpation, Yes Tenderness to palpation present (GI), No Guarding due to palpation present (GI) and No Rigid due to palpation Objective Data Vital Signs Vital Signs: Vital Signs - 24 hr 04/21/24 15:07 04/21/24 20:24 04/22/24 05:33 Temperature 36.3 C L 36.6 C 36.6 C Pulse Rate 75 78 69 Respiratory Rate 18 18 16 Blood Pressure 114/68 116/78 104/75 Pulse Oximetry 100 100 99 Oxygen Delivery 04/22/24 09:15 04/22/24 08:20 Temperature Pulse Rate Respiratory Rate Blood Pressure Pulse Oximetry 98 Oxygen Delivery Room Air Room Air Intake/Output Intake/Output: Intake & Output 04/19/24 04/20/24 04/21/24 04/22/24 23:59 23:59 23:59 23:59 Intake Total 1100 2020 1400 Output Total 400 Balance 1100 1620 1400 Meds/Results Medications: Active Medications Generic Name Dose Route Start Last Admin Trade Name Freq PRN Reason Stop Dose Admin Hydrocodone Bitart/Acetaminophen 1 tab 04/21/24 04:56 04/21/24 05:04 Hydrocodone/Acetaminophen (*Crx) 5-325 Mg Tablet PO 1 tab Q4H PRN Administration Pain Rated 4-6 Al Hydrox/Mg Hydrox/Simethicone 30 ml 04/21/24 11:24 Mag Hydrox/Al Hydrox/Simeth 30 Ml Udc PO Q6H PRN Indigestion Albuterol 2.5 mg 04/20/24 23:11 Albuterol Sulfate Neb 2.5 Mg/3 Ml Inh INHALATION Q4H PRN shortness of breath or wheezing Amlodipine Besylate 5 mg 04/21/24 09:00 04/22/24 08:19 Amlodipine Besylate 5 Mg Tablet PO 5 mg DAILY ERASMO Administration Baclofen 5 mg 04/20/24 23:11 04/21/24 21:41 Baclofen 5 Mg Tablet PO 5 mg TID PRN Administration Muscle Spasm Bumetanide 1 mg 04/21/24 09:00 04/22/24 08:20 Bumetanide 1 Mg Tablet PO 1 mg DAILY ERASMO Administration Docusate Sodium 100 mg 04/21/24 09:00 04/22/24 08:19 Docusate Sodium 100 Mg Capsule PO 100 mg DAILY [facility] Administration Hydromorphone HCl 0.5 mg 04/20/24 23:50 Hydromorphone Hcl Inj (*Crx) 1 Mg/Ml Syr IV PUSH Q3H PRN Pain Rated 7-10 Piperacillin/Tazobactam/Dextrose 3.375 gm in 50 mls @ 100 mls/hr 04/20/24 18:15 04/22/24 05:58 Zosyn 3.375 Gm/Ns 50 Ml IVPB Infused Q6HR [facility] Infusion Ibuprofen 600 mg 04/21/24 11:24 04/22/24 05:30 Ibuprofen 600 Mg Tablet PO 600 mg Q6H PRN Administration Cramping Loratadine 10 mg 04/21/24 09:00 04/22/24 08:19 Loratadine 10 Mg Tablet PO 10 mg QAM [facility] Administration Lorazepam 1 mg 04/22/24 10:37 Lorazepam (*Crx) 1 Mg Tablet PO Q6H PRN Anxiety Metoprolol Succinate 50 mg 04/21/24 09:00 04/22/24 08:19 Metoprolol Succinate Ext Rel 50 Mg Tabcr PO 50 mg DAILY [facility] Administration Multivitamins/Minerals 1 tablet 04/22/24 11:00 Multivits W-Fe,Min Chewable Tablet PO QAM [facility] Ondansetron HCl 4 mg 04/20/24 19:05 04/21/24 21:44 Ondansetron Inj 4 Mg/2 Ml Vial IV PUSH 4 mg Q4H PRN Administration Nausea Polyethylene Glycol 17 gm 04/20/24 23:17 04/21/24 14:28 Polyethylene Glycol 3350 17 Gm Powd.Pack PO 17 gm
[2024-04-22] MEDS: MULTIVITS W-FE,MIN CHEWABLE TABLET 1 TABLET PO (11:48)
--- NOTE | 2024-04-22 13:01 | PM.IMPN ---
Subjective Date/time seen: 04/22/24 1130 Interval history: Pt examined today with interval improvement overall. She states her pain is tolerable. She has no fevers, N/V/D and is still being covered by [facility] as well. They have advanced her to a low fiber diet and continuing abx. If tolerating diet tomorrow can switch to oral abx and discharge home to follow up in two weeks. Pt agreeable to this plan. Review of Systems Review of Systems: All systems reviewed & are unremarkable except as noted in HPI and below Exam Narrative: General: Nontoxic-appearing female sitting up in bed in mild discomfort. Weight: 95.7 kg. BMI: 36.2. HEENT: PERRL, EOMI. Sclera anicteric. Oral mucosa moist. Neck: Supple. Respiratory: Lungs are clear to auscultation bilaterally. Cardiovascular: Regular rate and rhythm with S1-S2. No murmur, rub, or gallop. Gastrointestinal: Abdomen is soft and tender with active bowel sounds. She is tender to palpation throughout the lower abdomen, more so on the left. No guarding or rebound tenderness. Skin: Warm and dry. Extremities: No cyanosis, clubbing, or edema. Radial and pedal pulses intact. Neurological: Alert. Cranial nerves 2-12 are grossly intact. No gross focal deficits to casual conversation. Psychiatric: Pleasant and cooperative with normal mood and affect. Judgment and insight intact. Objective Data Vital Signs Vital Signs: Vital Signs - 24 hr 04/21/24 15:07 04/21/24 20:24 04/22/24 05:33 Temperature 97.3 F L 97.9 F 97.9 F Pulse Rate 75 78 69 Respiratory Rate 18 18 16 Blood Pressure 114/68 116/78 104/75 Pulse Oximetry 100 100 99 Oxygen Delivery 04/22/24 09:15 04/22/24 08:20 Temperature Pulse Rate Respiratory Rate Blood Pressure Pulse Oximetry 98 Oxygen Delivery Room Air Room Air Intake/Output Intake/Output: Intake & Output 04/19/24 04/20/24 04/21/24 04/22/24 23:59 23:59 23:59 23:59 Intake Total 1100 2020 1400 Output Total 400 Balance 1100 1620 1400 Meds/Results Medications: Active Medications Generic Name Dose Route Start Last Admin Trade Name Freq PRN Reason Stop Dose Admin Hydrocodone Bitart/Acetaminophen 1 tab 04/21/24 04:56 04/21/24 05:04 Hydrocodone/Acetaminophen (*Crx) 5-325 Mg Tablet PO 1 tab Q4H PRN Administration Pain Rated 4-6 Al Hydrox/Mg Hydrox/Simethicone 30 ml 04/21/24 11:24 Mag Hydrox/Al Hydrox/Simeth 30 Ml Udc PO Q6H PRN Indigestion Albuterol 2.5 mg 04/20/24 23:11 Albuterol Sulfate Neb 2.5 Mg/3 Ml Inh INHALATION Q4H PRN shortness of breath or wheezing Amlodipine Besylate 5 mg 04/21/24 09:00 04/22/24 08:19 Amlodipine Besylate 5 Mg Tablet PO 5 mg DAILY [facility] Administration Baclofen 5 mg 04/20/24 23:11 04/21/24 21:41 Baclofen 5 Mg Tablet PO 5 mg TID PRN Administration Muscle Spasm Bumetanide 1 mg 04/21/24 09:00 04/22/24 08:20 Bumetanide 1 Mg Tablet PO 1 mg DAILY [facility] Administration Docusate Sodium 100 mg 04/21/24 09:00 04/22/24 08:19 Docusate Sodium 100 Mg Capsule PO 100 mg DAILY [facility] Administration Hydromorphone HCl 0.5 mg 04/20/24 23:50 Hydromorphone Hcl Inj (*Crx) 1 Mg/Ml Syr IV PUSH Q3H PRN Pain Rated 7-10 Piperacillin/Tazobactam/Dextrose 3.375 gm in 50 mls @ 100 mls/hr 04/20/24 18:15 04/22/24 12:47 Zosyn 3.375 Gm/Ns 50 Ml IVPB 100 mls/hr Q6HR [facility] Administration Ibuprofen 600 mg 04/21/24 11:24 04/22/24 05:30 Ibuprofen 600 Mg Tablet PO 600 mg Q6H PRN Administration Cramping Loratadine 10 mg 04/21/24 09:00 04/22/24 08:19 Loratadine 10 Mg Tablet PO 10 mg QAM [facility] Administration Lorazepam 1 mg 04/22/24 10:37 Lorazepam (*Crx) 1 Mg Tablet PO Q6H PRN Anxiety Metoprolol Succinate 50 mg 04/21/24 09:00 04/22/24 08:19 Metoprolol Succinate Ext Rel 50 Mg Tabcr PO 50 mg DAILY [facility] Administration Multivitamins/Minerals 1 tablet 04/22/24 11:00 04/05
[2024-04-22] MEDS: BACLOFEN 5 MG TABLET PO ×2 (13:15→20:43)
[2024-04-22 15:26] VITALS: BP 106/73; PULSE 71; RESP 16; TEMP 36.2; O2SAT 99
[2024-04-22] MEDS: polyethylene glycoL 3350 17 GM POWD.PACK PO (17:32)
[2024-04-22 20:40] VITALS: BP 106/56; PULSE 83; RESP 20; TEMP 36.5; O2SAT 100
[2024-04-22] MEDS: ONDANSETRON INJ 4 MG/2 ML VIAL IV PUSH (20:44)
[2024-04-23] MEDS: IBUPROFEN 600 MG TABLET PO ×3 (04:47→20:53)
[2024-04-23 04:49] VITALS: BP 104/51; PULSE 63; RESP 18; TEMP 36.3; O2SAT 99
[2024-04-23] MEDS: PIPERACILLN/TAZ 3.375GM/NS50ML 3.375 GM/50 ML BAG IVPB ×4 (05:28→23:51)
[2024-04-23 07:24] LABS: Basophils Absolute Auto 0.1 K/mm3 (0.0-0.1); Basophils Percent Auto 0.6 % (0.2-1.2); Eosinophils Absolute Auto 0.1 K/mm3 (0-0.3); Eosinophils Percent Auto 1.6 % (0-4.4); Hematocrit 37.5 % (37.0-47.0); Hemoglobin 12.7 g/dL (12.0-15.0); Immature Granulocyte Absolute 0.03 K/mm3 (0.00-0.031); Immature Granulocyte Percent A 0.4 % (0-0.5); Lymphocytes Percent Auto 34.1 % (18.3-44.2); Mean Corpuscular HGB Conc 33.9 g/dl (32-36); Mean Corpuscular Hemoglobin 31.1 pg (26-34); Mean Corpuscular Volume 91.9 fl (80-100); Mean Platelet Volume 9.9 fl (7.4-10.4); Monocytes Absolute Auto 0.7 K/mm3 (0.1-0.6); Monocytes Percent Auto 7.9 % (2.6-8.5); Neutrophils Absolute Auto 4.5 K/mm3 (1.3-6.7); Neutrophils Percent Auto 55.4 % (45.5-73.1); Platelet Count Result 256 k/mm3 (150-375); Red Blood Count 4.08 M/mm3 (4.2-5.4); Red Cell Distribution Width 12.1 % (11.5-14.5); White Blood Count 8.2 K/mm3 (4.5-10.0)
[2024-04-23 07:36] LABS: Alanine Aminotransferase 72 U/L (6-35); Albumin Level 3.7 g/dL (3.5-5.1); Alkaline Phosphatase 66 U/L (38-126); Anion Gap 7 mmol/L (4-12); Aspartate Amino Transferase 42 U/L (14-36); Bilirubin,Total 0.6 mg/dL (0.2-1.3); Blood Urea Nitrogen 5 mg/dL (7-17); Calcium 8.7 mg/dL (8.4-10.2); Carbon Dioxide 28 mmol/L (22-30); Chloride 101 mmol/L (98-107); Estimated CRCL calculation 102 ml/min; Estimated Glomerular Filt Rate > 60; Glucose 137 mg/dL (65-110); Magnesium 1.9 mg/dL (1.6-2.3); Potassium 3.7 mmol/L (3.4-5.0); Sodium 136 mmol/L (137-145)
--- NOTE | 2024-04-23 08:20 | PM.IMPN ---
Progress Note: A&P Assessment and Plan (1) Diverticulitis: Code(s): K57.92 - Diverticulitis of intestine, part unspecified, without perforation or abscess without bleeding Status: Acute Assessment and Plan: Continue zosyn Surgery has consulted and they are making recommendations. GI eval if not improving, patient of [facility]. Discussed changing diet to clears, ice chips if worsening. Patient is going to modify her diet and adjust as needed PRN pain meds--Schedule tylenol 650 q8 given elevated LFT's, continue to follow labs (2) Hypokalemia: Code(s): E87.6 - Hypokalemia Status: Acute Assessment and Plan: Resolved Trend (3) Transaminitis: Code(s): R74.01 - Elevation of levels of liver transaminase levels Status: Acute Assessment and Plan: Suspect this is actually chronic as pt has hx of Hepatitis C. Trend labs (4) Hepatitis C: Code(s): B19.20 - Unspecified viral hepatitis C without hepatic coma Status: Acute Assessment and Plan: Chronic in nature. (5) Hypertension: Code(s): I10 - Essential (primary) hypertension Status: Acute Assessment and Plan: Continue home medications and monitor. Time Spent With Patient Time: 58 minutes Subjective Date/time seen: 04/23/24 08:20 Interval history: Reports feeling better yesterday than today. Increased lower abdominal pain, left and right now, but overall pain improved since admission. Feels more bloated but overall mild, not passing gas easily. Last BM was yesterday morning, only a liquid stool yesterday. No nausea or vomiting. Discussed changing diet to clears, patient will do that herself today, will increase again if improving. Only had cream of wheat and hot tea this morning Review of Systems Review of Systems: No fevers, chills, shortness of breath, chest pain or other symptoms All systems reviewed & are unremarkable except as noted in HPI and below Exam Narrative: General: Nontoxic-appearing female sitting up in bed in mild discomfort. Weight: 95.7 kg. BMI: 36.2. HEENT: PERRL, EOMI. Sclera anicteric. Oral mucosa moist. Neck: Supple. Respiratory: Lungs are clear to auscultation bilaterally. Cardiovascular: Regular rate and rhythm with S1-S2. No murmur, rub, or gallop. Gastrointestinal: Abdomen is soft and tender with active bowel sounds. She is tender to palpation throughout the lower abdomen, left and right. No guarding or rebound tenderness. No significant distention Skin: Warm and dry. Extremities: No cyanosis, clubbing, or edema. Radial and pedal pulses intact. Neurological: Alert. Cranial nerves 2-12 are grossly intact. No gross focal deficits to casual conversation. Psychiatric: Pleasant and cooperative with normal mood and affect. Judgment and insight intact. Objective Data Vital Signs Vital Signs: Vital Signs - 24 hr 04/22/24 09:15 04/22/24 15:26 04/22/24 20:40 Temperature 97.2 F L 97.7 F Pulse Rate 71 83 Respiratory Rate 16 20 Blood Pressure 106/73 106/56 L Pulse Oximetry 98 99 100 Oxygen Delivery Room Air 04/23/24 04:49 Temperature 97.4 F L Pulse Rate 63 Respiratory Rate 18 Blood Pressure 104/51 L Pulse Oximetry 99 Oxygen Delivery Intake/Output Intake/Output: Intake & Output 04/20/24 04/21/24 04/22/24 04/23/24 23:59 23:59 23:59 23:59 Intake Total 1100 2020 5330 2050 Output Total 400 Balance 1100 1620 5330 2050 Meds/Results Medications: Active Medications Generic Name Dose Route Start Last Admin Trade Name Freq PRN Reason Stop Dose Admin Hydrocodone Bitart/Acetaminophen 1 tab 04/21/24 04:56 04/21/24 05:04 Hydrocodone/Acetaminophen (*Crx) 5-325 Mg Tablet PO 1 tab Q4H PRN Administration Pain Rated 4-6 Al Hydrox/Mg Hydrox/Simethicone 30 ml 04/21/24 11:24 Mag Hydrox/Al Hydrox/Simeth 30 Ml Udc PO Q6H PRN Indigestion Albuterol 2.5 mg 04/20/24 23:11
[2024-04-23 08:36] VITALS: PULSE 60
[2024-04-23] MEDS: MULTIVITS W-FE,MIN CHEWABLE TABLET 1 TABLET PO (08:36)
[2024-04-23] MEDS: LORATADINE 10 MG TABLET PO (08:36)
[2024-04-23] MEDS: SIMETHICONE 125 MG CHEW TAB PO ×4 (08:36→20:48)
[2024-04-23] MEDS: amLODIPine BESYLATE 5 MG TABLET PO (08:36)
[2024-04-23] MEDS: METOPROLOL SUCCINATE EXT REL 50 MG TABCR PO (08:36)
[2024-04-23] MEDS: BUMETANIDE 1 MG TABLET PO (08:36)
[2024-04-23] MEDS: DOCUSATE SODIUM 100 MG CAPSULE PO (08:36)
[2024-04-23] MEDS: BACLOFEN 5 MG TABLET PO ×2 (10:53→20:48)
[2024-04-23] MEDS: polyethylene glycoL 3350 17 GM POWD.PACK PO (10:53)
[2024-04-23] MEDS: ACETAMINOPHEN 325 MG TABLET 650 MG PO ×2 (12:26→17:20)
--- NOTE | 2024-04-23 12:28 | PM.PNGS ---
Progress Note: A&P Assessment and Plan (1) Diverticulitis of colon with perforation: Code(s): K57.20 - Diverticulitis of large intestine with perforation and abscess without bleeding Status: Acute Assessment and Plan: Patient had more abdominal pain and bloating after eating dinner last night. Will repeat CT scan to further evaluate. Continue low fiber diet and IV antibiotics. If CT is negative for any signs of worsening diverticulitis or abscess, then okay to discharge home on low fiber diet with oral antibiotics. Plan I have discussed the patient's case and plan of care with Dr. Brody. Subjective Subjective Date/Time Seen: 04/23/24 12:28 Patient reports: still having pain, flatus, no bowel movement and afebrile Interval history: Patient reports increased abdominal pain after eating solids at dinner last night. She reports suprapubic pain and feels her pain has also migrated to her RLQ. She reports this as burning pain. She has more bloating and nausea this morning. No vomiting. Feels that some of it may be related to gas pains. No fevers and WBC normal. Exam Const: General: comfortable and no acute distress Orientation/consciousness: patient oriented x3 GI: Inspection: non-distended and obesity GI Palp: Yes Soft to palpation, Yes Tenderness to palpation present (GI) (mild TTP in suprapubic area, LLQ, RLQ), No Guarding due to palpation present (GI) and No Rebound tenderness present Auscultation: normal bowel sounds Objective Data Vital Signs Vital Signs: Vital Signs - 24 hr 04/22/24 15:26 04/22/24 20:40 04/23/24 04:49 Temperature 97.2 F L 97.7 F 97.4 F L Pulse Rate 71 83 63 Respiratory Rate 16 20 18 Blood Pressure 106/73 106/56 L 104/51 L Pulse Oximetry 99 100 99 04/23/24 08:36 Temperature Pulse Rate 60 Respiratory Rate Blood Pressure Pulse Oximetry Intake/Output Intake/Output: Intake & Output 04/20/24 04/21/24 04/22/24 04/23/24 23:59 23:59 23:59 23:59 Intake Total 1100 2020 5330 2170 Output Total 400 Balance 1100 1620 5330 2170 Meds/Results Medications: Active Medications Generic Name Dose Route Start Last Admin Trade Name Freq PRN Reason Stop Dose Admin Acetaminophen 650 mg 04/23/24 13:00 04/23/24 12:26 Acetaminophen 325 Mg Tablet PO 650 mg TID ERASMO Administration Hydrocodone Bitart/Acetaminophen 1 tab 04/21/24 04:56 04/21/24 05:04 Hydrocodone/Acetaminophen (*Crx) 5-325 Mg Tablet PO 1 tab Q4H PRN Administration Pain Rated 4-6 Al Hydrox/Mg Hydrox/Simethicone 30 ml 04/21/24 11:24 Mag Hydrox/Al Hydrox/Simeth 30 Ml Udc PO Q6H PRN Indigestion Albuterol 2.5 mg 04/20/24 23:11 Albuterol Sulfate Neb 2.5 Mg/3 Ml Inh INHALATION Q4H PRN shortness of breath or wheezing Amlodipine Besylate 5 mg 04/21/24 09:00 04/23/24 08:36 Amlodipine Besylate 5 Mg Tablet PO 5 mg DAILY ERASMO Administration Baclofen 5 mg 04/20/24 23:11 04/23/24 10:53 Baclofen 5 Mg Tablet PO 5 mg TID PRN Administration Muscle Spasm Bumetanide 1 mg 04/21/24 09:00 04/23/24 08:36 Bumetanide 1 Mg Tablet PO 1 mg DAILY ERASMO Administration Docusate Sodium 100 mg 04/21/24 09:00 04/23/24 08:36 Docusate Sodium 100 Mg Capsule PO 100 mg DAILY ERASMO Administration Hydromorphone HCl 0.5 mg 04/20/24 23:50 Hydromorphone Hcl Inj (*Crx) 1 Mg/Ml Syr IV PUSH Q3H PRN Pain Rated 7-10 Piperacillin/Tazobactam/Dextrose 3.375 gm in 50 mls @ 100 mls/hr 04/20/24 18:15 04/23/24 12:26 Zosyn 3.375 Gm/Ns 50 Ml IVPB 100 mls/hr Q6HR ER[facility] Administration Ibuprofen 600 mg 04/21/24 11:24 04/23/24 04:47 Ibuprofen 600 Mg Tablet PO 600 mg Q6H PRN Administration Cramping Loratadine 10 mg 04/21/24 09:00 04/23/24 08:36 Loratadine 10 Mg Tablet PO 10 mg QAM ERAS[facility] Administration Lorazepam 1 mg 04/22/24 10:37 Lorazepam (*Crx) 1 Mg Tablet PO Q6H PRN Anxiety Metoprolol Succ
[2024-04-23 13:30] VITALS: BP 116/60; PULSE 65; RESP 16; TEMP 36.3; O2SAT 100
[2024-04-23 20:39] VITALS: BP 131/76; PULSE 58; RESP 18; TEMP 36.6; O2SAT 100
[2024-04-24] MEDS: IBUPROFEN 600 MG TABLET PO ×2 (05:17→16:40)
[2024-04-24] MEDS: PIPERACILLN/TAZ 3.375GM/NS50ML 3.375 GM/50 ML BAG IVPB (05:20)
[2024-04-24 05:37] VITALS: BP 112/65; PULSE 69; RESP 20; TEMP 36.8; O2SAT 97
[2024-04-24] MEDS: polyethylene glycoL 3350 17 GM POWD.PACK PO (08:20)
[2024-04-24] MEDS: amLODIPine BESYLATE 5 MG TABLET PO (08:20)
[2024-04-24] MEDS: SIMETHICONE 125 MG CHEW TAB PO (08:20)
[2024-04-24] MEDS: LORATADINE 10 MG TABLET PO (08:20)
[2024-04-24] MEDS: ACETAMINOPHEN 325 MG TABLET 650 MG PO ×3 (08:20→16:37)
[2024-04-24 08:21] VITALS: PULSE 68
[2024-04-24] MEDS: DOCUSATE SODIUM 100 MG CAPSULE PO (08:21)
[2024-04-24] MEDS: METOPROLOL SUCCINATE EXT REL 50 MG TABCR PO (08:21)
[2024-04-24] MEDS: BUMETANIDE 1 MG TABLET PO (08:21)
[2024-04-24] MEDS: MULTIVITS W-FE,MIN CHEWABLE TABLET 1 TABLET PO (08:21)
--- NOTE | 2024-04-24 08:24 | PM.IMPN ---
Progress Note: A&P Assessment and Plan (1) Diverticulitis: Code(s): K57.92 - Diverticulitis of intestine, part unspecified, without perforation or abscess without bleeding Status: Acute Assessment and Plan: Change zosyn to cipro/flagyl. Check EKG Surgery following, ok for discharge Follow up with GI,, patient of [facility]. Patient modify her diet and adjust as needed PRN pain meds--Schedule tylenol 650 q8 given elevated LFT's, continue to follow labs Continue miralax for constipation, schedule simethicone for bloating (2) Hypokalemia: Code(s): E87.6 - Hypokalemia Status: Acute Assessment and Plan: Resolved Follow (3) Transaminitis: Code(s): R74.01 - Elevation of levels of liver transaminase levels Status: Acute Assessment and Plan: Suspect this is actually chronic as pt has hx of Hepatitis C. Trend labs (4) Hepatitis C: Code(s): B19.20 - Unspecified viral hepatitis C without hepatic coma Status: Acute Assessment and Plan: Chronic in nature. (5) Hypertension: Code(s): I10 - Essential (primary) hypertension Status: Acute Assessment and Plan: Continue home medications and monitor. Time Spent With Patient Time: 56 minutes Subjective Date/time seen: 04/24/24 08:25 Interval history: CT 04/23 uncomplicated diverticulitis without abscess. Overall improving overnight, had a small liquid/soft BM. Tolerating small amounts, discharge later if doing well Review of Systems Review of Systems: No fevers, chills, shortness of breath, chest pain or other symptoms All systems reviewed & are unremarkable except as noted in HPI and below Exam Narrative: General - Awake and alert. No acute distress Eyes - PERRLA, EOM intact ENT - No thrush, No erythema Neck - No noticeable or palpable swelling Lymph Nodes - No lymphadenopathy Cardiovascular - RRR no m/r/g, no JVD Lungs: Clear to auscultation, No wheezing, use of accessory muscles, no crackles or wheezes. Skin - Skin warm and dry, no wounds or rashes Abdomen - Normal bowel sounds, abdomen soft, minimally tender to palpation Extremities - No edema, cyanosis or clubbing Musculoskeletal - 5/5 strength, normal range of motion, no swollen or erythematous joints. Neurological ? Alert and oriented x 3, CN 2-12 grossly intact. Psych: Normal mood and affect Objective Data Vital Signs Vital Signs: Vital Signs - 24 hr 04/23/24 08:36 04/23/24 13:30 04/23/24 08:33 Temperature 97.3 F L Pulse Rate 60 65 Respiratory Rate 16 Blood Pressure 116/60 Pulse Oximetry 100 Oxygen Delivery Room Air 04/23/24 20:39 04/23/24 20:00 04/24/24 05:37 Temperature 97.9 F 98.2 F Pulse Rate 58 L 69 Respiratory Rate 18 20 Blood Pressure 131/76 112/65 Pulse Oximetry 100 97 Oxygen Delivery Room Air 04/24/24 08:21 Temperature Pulse Rate 68 Respiratory Rate Blood Pressure Pulse Oximetry Oxygen Delivery Intake/Output Intake/Output: Intake & Output 04/21/24 04/22/24 04/23/24 04/24/24 23:59 23:59 23:59 23:59 Intake Total 2020 5330 4330 600 Output Total 400 Balance 1620 5330 4330 600 Meds/Results Medications: Active Medications Generic Name Dose Route Start Last Admin Trade Name Freq PRN Reason Stop Dose Admin Acetaminophen 650 mg 04/23/24 13:00 04/24/24 08:20 Acetaminophen 325 Mg Tablet PO 650 mg TID ERASMO Administration Hydrocodone Bitart/Acetaminophen 1 tab 04/21/24 04:56 04/21/24 05:04 Hydrocodone/Acetaminophen (*Crx) 5-325 Mg Tablet PO 1 tab Q4H PRN Administration Pain Rated 4-6 Al Hydrox/Mg Hydrox/Simethicone 30 ml 04/21/24 11:24 Mag Hydrox/Al Hydrox/Simeth 30 Ml Udc PO Q6H PRN Indigestion Albuterol 2.5 mg 04/20/24 23:11 Albuterol Sulfate Neb 2.5 Mg/3 Ml Inh INHALATION Q4H PRN shortness of breath or wheezing Amlodipine Besylate 5 mg 04/21/24
--- NOTE | 2024-04-24 09:37 | PM.PNGS ---
Progress Note: A&P Assessment and Plan (1) Diverticulitis of colon with perforation: Code(s): K57.20 - Diverticulitis of large intestine with perforation and abscess without bleeding Status: Acute Assessment and Plan: exam benign, CT shows interval improvement, ok to dc home on abx and low fiber diet, f/u 2 wks Subjective Subjective Date/Time Seen: 04/24/24 09:37 Interval history: feels better today, still c gas pains Review of Systems Review of Systems: All systems reviewed & are unremarkable except as noted in HPI and below Exam Const: General: cooperative, comfortable and no acute distress Resp: Auscultation: clear to auscultation bilaterally Cardio: Rate: regular rate Rhythm: regular rhythm GI: Inspection: normal to inspection and non-distended GI Palp: No abdominal tenderness and Yes Soft to palpation Objective Data Vital Signs Vital Signs: Vital Signs - 24 hr 04/23/24 13:30 04/23/24 20:39 04/23/24 20:00 Temperature 36.3 C L 36.6 C Pulse Rate 65 58 L Respiratory Rate 16 18 Blood Pressure 116/60 131/76 Pulse Oximetry 100 100 Oxygen Delivery Room Air 04/24/24 05:37 04/24/24 08:21 04/24/24 08:21 Temperature 36.8 C Pulse Rate 69 68 Respiratory Rate 20 Blood Pressure 112/65 Pulse Oximetry 97 Oxygen Delivery Room Air Intake/Output Intake/Output: Intake & Output 04/21/24 04/22/24 04/23/24 04/24/24 23:59 23:59 23:59 23:59 Intake Total 2020 5330 4330 1200 Output Total 400 Balance 1620 5330 4330 1200 Meds/Results Medications: Active Medications Generic Name Dose Route Start Last Admin Trade Name Freq PRN Reason Stop Dose Admin Acetaminophen 650 mg 04/23/24 13:00 04/24/24 08:20 Acetaminophen 325 Mg Tablet PO 650 mg TID ERASMO Administration Hydrocodone Bitart/Acetaminophen 1 tab 04/21/24 04:56 04/21/24 05:04 Hydrocodone/Acetaminophen (*Crx) 5-325 Mg Tablet PO 1 tab Q4H PRN Administration Pain Rated 4-6 Al Hydrox/Mg Hydrox/Simethicone 30 ml 04/21/24 11:24 Mag Hydrox/Al Hydrox/Simeth 30 Ml Udc PO Q6H PRN Indigestion Albuterol 2.5 mg 04/20/24 23:11 Albuterol Sulfate Neb 2.5 Mg/3 Ml Inh INHALATION Q4H PRN shortness of breath or wheezing Amlodipine Besylate 5 mg 04/21/24 09:00 04/24/24 08:20 Amlodipine Besylate 5 Mg Tablet PO 5 mg DAILY ERASMO Administration Baclofen 5 mg 04/20/24 23:11 04/23/24 20:48 Baclofen 5 Mg Tablet PO 5 mg TID PRN Administration Muscle Spasm Bumetanide 1 mg 04/21/24 09:00 04/24/24 08:21 Bumetanide 1 Mg Tablet PO 1 mg DAILY ERASMO Administration Docusate Sodium 100 mg 04/21/24 09:00 04/24/24 08:21 Docusate Sodium 100 Mg Capsule PO 100 mg DAILY ERASMO Administration Hydromorphone HCl 0.5 mg 04/20/24 23:50 Hydromorphone Hcl Inj (*Crx) 1 Mg/Ml Syr IV PUSH Q3H PRN Pain Rated 7-10 Piperacillin/Tazobactam/Dextrose 3.375 gm in 50 mls @ 100 mls/hr 04/20/24 18:15 04/24/24 05:20 Zosyn 3.375 Gm/Ns 50 Ml IVPB 100 mls/hr Q6HR ERASMO Administration Ibuprofen 600 mg 04/21/24 11:24 04/24/24 05:17 Ibuprofen 600 Mg Tablet PO 600 mg Q6H PRN Administration Cramping Loratadine 10 mg 04/21/24 09:00 04/24/24 08:20 Loratadine 10 Mg Tablet PO 10 mg QAM ERASMO Administration Lorazepam 1 mg 04/22/24 10:37 Lorazepam (*Crx) 1 Mg Tablet PO Q6H PRN Anxiety Metoprolol Succinate 50 mg 04/21/24 09:00 04/24/24 08:21 Metoprolol Succinate Ext Rel 50 Mg Tabcr PO 50 mg DAILY ERASMO Administration Multivitamins/Minerals 1 tablet 04/22/24 11:00 04/24/24 08:21 Multivits W-Fe,Min Chewable Tablet PO 1 tablet QAM ERASMO Administration Ondansetron HCl 4 mg 04/20/24 19:05 04/22/24 20:44 Ondansetron Inj 4 Mg/2 Ml Vial IV PUSH 4 mg Q4H PRN Administration Nausea Polyethylene Glycol 17 gm 04/20/24 23:17 04/24/24 08:20 Polyethylene Glycol 3350 17 Gm Powd.Pack
--- NOTE | 2024-04-24 10:49 | ECG_ITS ---
Test Date: 2024-04-24 13:56:03 Measurements Intervals Arnett Rate: 58 P: 12 AK: 170 QRS: 53 QRSD: 87 T: 49 QT: 393 QTc: 389 Interpretive Statements SINUS BRADYCARDIA BASELINE ARTIFACT- I, II, III, AVR, AVL, V2 BORDERLINE ECG No previous ECG available for comparison Electronically Signed On 04-24-2024 18:37:41 CDT by Fam Huerta D.O.
[2024-04-24] MEDS: CIPROFLOXACIN 500 MG TAB PO ×2 (12:41→21:13)
[2024-04-24] MEDS: SIMETHICONE 125 MG CHEW TAB 250 MG PO ×3 (12:41→21:12)
[2024-04-24 14:00] VITALS: BP 122/75; PULSE 63; RESP 18; TEMP 36.3; O2SAT 100
[2024-04-24] MEDS: metroNIDAZOLE 500 MG TABLET PO ×2 (14:06→21:13)
[2024-04-24] MEDS: BACLOFEN 5 MG TABLET PO (21:14)
[2024-04-24 22:00] VITALS: BP 145/85; PULSE 65; RESP 19; TEMP 36.3; O2SAT 99
[2024-04-24 22:52] VITALS: O2SAT 99
[2024-04-24] MEDS: LORazepam (*CRX) 1 MG TABLET PO (23:44)
[2024-04-25 05:52] LABS: Basophils Absolute Auto 0.1 K/mm3 (0.0-0.1); Basophils Percent Auto 0.7 % (0.2-1.2); Eosinophils Absolute Auto 0.1 K/mm3 (0-0.3); Eosinophils Percent Auto 1.6 % (0-4.4); Hematocrit 34.7 % (37.0-47.0); Hemoglobin 11.9 g/dL (12.0-15.0); Immature Granulocyte Absolute 0.02 K/mm3 (0.00-0.031); Immature Granulocyte Percent A 0.3 % (0-0.5); Lymphocytes Absolute Auto 2.03 K/mm3 (0.9-3.2); Mean Corpuscular HGB Conc 34.3 g/dl (32-36); Mean Corpuscular Volume 90.4 fl (80-100); Mean Platelet Volume 9.6 fl (7.4-10.4); Monocytes Absolute Auto 0.7 K/mm3 (0.1-0.6); Neutrophils Absolute Auto 3.9 K/mm3 (1.3-6.7); Neutrophils Percent Auto 57.4 % (45.5-73.1); Platelet Count Result 235 k/mm3 (150-375); Red Blood Count 3.84 M/mm3 (4.2-5.4); Red Cell Distribution Width 11.9 % (11.5-14.5); White Blood Count 6.8 K/mm3 (4.5-10.0)
[2024-04-25 06:00] VITALS: BP 106/56; PULSE 77; RESP 19; TEMP 36.3; O2SAT 98
[2024-04-25 06:03] LABS: Alanine Aminotransferase 87 U/L (6-35); Albumin Level 3.7 g/dL (3.5-5.1); Alkaline Phosphatase 53 U/L (38-126); Anion Gap 8 mmol/L (4-12); Aspartate Amino Transferase 80 U/L (14-36); Bilirubin,Total 0.5 mg/dL (0.2-1.3); Blood Urea Nitrogen 7 mg/dL (7-17); CRP < 0.5 mg/dL (<1.0); Calcium 8.7 mg/dL (8.4-10.2); Carbon Dioxide 28 mmol/L (22-30); Chloride 99 mmol/L (98-107); Estimated CRCL calculation 101 ml/min; Estimated Glomerular Filt Rate > 60; Glucose 132 mg/dL (65-110); Potassium 3.6 mmol/L (3.4-5.0); Sodium 135 mmol/L (137-145)
[2024-04-25] MEDS: metroNIDAZOLE 500 MG TABLET PO ×2 (06:13→13:02)
[2024-04-25 06:52] LABS: Erythrocyte Sedimentation Rate 47 mm/hr (0-20)
[2024-04-25 08:12] VITALS: PULSE 80
[2024-04-25] MEDS: METOPROLOL SUCCINATE EXT REL 50 MG TABCR PO (08:12)
[2024-04-25] MEDS: SIMETHICONE 125 MG CHEW TAB 250 MG PO ×2 (08:12→12:57)
[2024-04-25] MEDS: MULTIVITS W-FE,MIN CHEWABLE TABLET 1 TABLET PO (08:12)
[2024-04-25] MEDS: CIPROFLOXACIN 500 MG TAB PO (08:12)
[2024-04-25] MEDS: BUMETANIDE 1 MG TABLET PO (08:12)
[2024-04-25] MEDS: LORATADINE 10 MG TABLET PO (08:13)
[2024-04-25] MEDS: DOCUSATE SODIUM 100 MG CAPSULE PO (08:13)
[2024-04-25] MEDS: IBUPROFEN 600 MG TABLET PO ×2 (08:19→14:42)
[2024-04-25 11:00] VITALS: BP 130/76
--- NOTE | 2024-04-25 11:32 | PC.NURSE ---
Patient in bed resting comfortably. Patient choosing to consume clear liquids as anything else causes her pain. Requested ibuprofen instead of her schedule Tylenol. First AM BP low, held medication. Discussed this with the patient. Mid morning BP more stable. Patient up independently in the room and with hygiene.
[2024-04-25] MEDS: amLODIPine BESYLATE 5 MG TABLET PO (12:56)
--- NOTE | 2024-04-25 12:59 | PM.DS ---
DS: Admitting Diagnosis Discharge Date April 25, 2024 Admitting Diagnosis Acute uncomplicated diverticulitis DS: Discharge Diagnosis Discharge Diagnosis (1) Diverticulitis: Code(s): K57.92 - Diverticulitis of intestine, part unspecified, without perforation or abscess without bleeding Status: Acute Assessment and Plan: Continue Cipro plus Flagyl for 2 additional days for a total of 7 days antibiotics. Continue on clear liquid diet until follow-up with Gastroenterology and primary care (2) Hypokalemia: Code(s): E87.6 - Hypokalemia Status: Acute Assessment and Plan: Resolved (3) Transaminitis: Code(s): R74.01 - Elevation of levels of liver transaminase levels Status: Acute Assessment and Plan: Chronic (4) Hepatitis C: Code(s): B19.20 - Unspecified viral hepatitis C without hepatic coma Status: Acute Assessment and Plan: Chronic Follow-up with gastroenterology (5) Hypertension: Code(s): I10 - Essential (primary) hypertension Status: Acute Assessment and Plan: Controlled on home regimen Plan I have confirmed that the patient's Advanced Care Plan is present, code status is documented, or surrogate decision maker is listed in patient medical record.: Yes DS: Summary Hospital Course Hospital Course: Admitted April [address] revealed uncomplicated diverticulitis. Had slow response to IV antibiotics initially Zosyn and then Cipro plus Flagyl. Has a history of IBS C. by day of discharge she was tolerating clear liquids and old meal or cream of wheat. Could not tolerate much more than that. She was a bit constipated and bloated which her usual for IBS C. We discussed maintaining regular bowel movements as part of the regimen to prevent recurrent diverticulitis. She has multiple food intolerances and plans to see a naturopathic food ehs manager in order to determine a better diet for herself. Once she has complete her. Of low-fiber diet and resumes eating regular food she will also consider the Mediterranean diet. By day of discharge she was afebrile tolerating foods. She was constipated which is her norm. She was performing ADLs independently. Labs at discharge included a white blood cell count of 6.8 1000. Hemoglobin 11.9. Hematocrit 34.7. Platelets 336068. ESR 47. CRP less than 0.5. Sodium 135, potassium 3.6, chloride 99, carbon dioxide 28, BUN 7, creatinine 0.7, estimated creatinine clearance 101, AST 80, ALT 87 bilirubin 0.5, calcium 8.7. Time Spent with Patient Time attestation: Total time spent providing and/or coordinating discharge services: Exam Narrative: General - Awake and alert. No acute distress Eyes - PERRLA, sclerae anicteric ENT -mucosa moist Neck -no JVD Cardiovascular - RRR no m/r/g Lungs: Clear to auscultation, No wheezing, use of accessory muscles, no crackles or wheezes. Skin - Skin warm and dry, no wounds or rashes Abdomen - Normal bowel sounds, abdomen soft, minimally tender to palpation in the left lower quadrant. Extremities - No edema, cyanosis or clubbing Musculoskeletal -no gross deformity to visual inspection Neurological ? Alert and oriented x 3, CN 2-12 grossly intact to visual inspection Psych: Normal mood and affect. Alert and oriented x4. DS: Data Data Completed and Pending Labs on day of discharge: Labs from last 24 hours 04/25/24 05:44 WBC 6.8 RBC 3.84 L Hgb 11.9 L Hct 34.7 L MCV 90.4 MCH 31.0 MCHC 34.3 RDW 11.9 Plt Count 235 MPV 9.6 Immature Gran % (Auto) 0.3 Neut % (Auto) 57.4 Lymph % (Auto) 30.0 Jackson % (Auto) 10.0 H Eos % (Auto) 1.6 Baso % (Auto) 0.7 Lymph # (Auto) 2.03 Jackson # (Auto) 0.7 H Eos # (Auto) 0.1 Baso # (Auto) 0.1 Abs Immat Gran (auto) 0.02 Absolute Neuts (auto) 3.9 Absolute Nucleated RBC 0.000 Nucleated RBC % 0.0 ESR 47 H Sodium 135 L Potassium 3.6 Chloride 99 Carbon D
[2024-04-25] MEDS: polyethylene glycoL 3350 17 GM POWD.PACK PO (13:01)
[2024-04-25 14:00] VITALS: BP 116/70; PULSE 65; RESP 18; TEMP 36.4; O2SAT 99
== END 2024-04-25 15:24 | disposition home or self-care (01) | DRG 392 ==
LOC: ANHED 18:23 → ANH3MED 20:41
PROVIDERS: Emergency Medicine; Nurse Practitioner Adult Health; Nurse Practitioner Family; Physician Assistant; Admitting Provider General Practice; Emergency Provider Emergency Medicine; PCP Family Medicine; Visit Provider Nurse Practitioner Acute Care
DX: K57.20 Diverticulitis of large intestine with perforation and abscess without bleeding (principal); E87.6 Hypokalemia; R74.01 Elevation of levels of liver transaminase levels; B18.2 Chronic viral hepatitis C; I10 Essential (primary) hypertension; K58.1 Irritable bowel syndrome with constipation; M06.9 Rheumatoid arthritis, unspecified; M79.7 Fibromyalgia; Z86.16 Personal history of COVID-19; F17.290 Nicotine dependence, other tobacco product, uncomplicated
CPT/HCPCS: 36415; 74177; 80053; 81001; 81025; 83605; 83690; 83735; 85025; 85027; 85610; 85652; 85730; 86140; 87040; 93005; 96361; 96365; 96366; 96375; 99285; A9270; G0378; J1170; J2270; J2405; J2543; J7030; Q9967

== ENCOUNTER 2025-04-22 10:11 | Outpatient (CLI) | payer MEDICARE, MEDICAID, SELFPAY ==
--- OUTSIDE RECORDS SUMMARY | 2025-04-22 10:53 | XMS_ITS | Clinical Summary ---
Author Organization [facility] Address [address] [place] [address] Care Team Providers Care Recreation Specialist Name Role Phone Unavailable Primary Care Provider Unavailabl e Source Comments [facility],non-owned Affiliates and Associated Physician Practices is amultiple site organization consisting of ambulatory clinics and hospital sitesin [place], [place], [place] and [place]. This disclosure is being madepursuant to the Care Everywhere program and may not contain all information available regarding this patient. Last updated 18.[facility] Social History Tobacco Use Types Packs/Day Years Used Date Smoking Tobacco: Never Assessed Comments Unknown Sex and Gender Information Value Date Recorded Sex Assigned at Not on file Legal Sex Female 6:16 AM [employer] Gender Identity Not on file Sexual Orientation Not on file Last Filed Vital Signs Vital Sign Reading Time Taken Comments Blood Pressure - - Pulse - - Temperature - - Respiratory Rate - - Oxygen Saturation - - Inhaled Oxygen Concentration - - Weight 99.8 kg (220 lb) 10/12/2020 3:16 PM [employer] Height 162.6 cm (5' 4) 10/12/2020 3:16 PM [employer] Body Mass Index 37.76 10/12/2020 3:16 PM [employer] Plan of Treatment Health Maintenance Due Date Last Done Comments LIPID TESTING 1980 MAMMOGRAM 1980 HIV SCREENING 1995 HEPATITIS C SCREENING 09/03/1998 DTAP/TDAP/TD VACCINES (1 - Tdap) 1999 HEPATITIS B VACCINE (1 of 3 - 19+ 3-dose series) 1999 HPV VACCINE (1 - 3-dose SCDM series) 2007 DEPRESSION SCREENING 08/05/2024 COVID-19 VACCINE (1 - 2023-2 5 season) 2025 INFLUENZA VACCINE (#1) 2025 ZOSTER VACCINE (1 of 2) 2030 HIB VACCINE Aged Out No longer eligi ble based on patient's age to complete this topic MENINGOCOCCAL (Group B) VACC INE SHARED DECISION-MAKING Aged Out No longer eligibl e based on patient's age to complete this topic MENINGOCOCCAL GROUPS A/C/Y/W VACCINE Aged Out No longer eligible b ased on patient's age to complete this topic PNEUMOCOCCAL VACCINE Aged Out No long er eligible based on patient's age to complete this topic
--- OUTSIDE RECORDS SUMMARY | 2025-04-22 10:53 | XMS_ITS | Patient Health Record ---
Author Organization [facility] [employer] Address [address] [place] [address] Care Team Providers Care Clinical Quality Assurance Specialist Name Role Phone Usha STONER, Jaspreet Primary Care Provider Unavail able Honey Corona Unavailable [phone] Nan Gerber Unavailable [phone] Allergies Allergen (clinical drug ingredient) Drug/Non Drug Allergy documented on EMR Reaction Allergy Type Onset Date Status sumatriptan Imitrex Unknown Drug Allergy 12/12/2023 Acti ve lisinopril Lisinopril Unknown Drug Allergy 12/12/2023 Acti ve Reason For Referral No Information Medications Medication SIG (Take, Route, Frequency, Duration) Notes Start Date End Date Status ProAir HFA 108 (90 Base) MCG/ACT Aerosol Solution Inhalation 11/28/2023 Active Vistaril 50 MG Capsule Oral 11/28/2023 Not-Taking methylPREDNISolone 4 MG Tablet Therapy Pack Oral 11/28/2023 Not-Taki ng valACYclovir HCl 1 GM Tablet Oral 11/28/2023 Active Fluticasone Propionate Diskus 50 MCG/ACT Aerosol Powder Breath Activated Inhalation *Reorder from [employer] for eRx and Interaction Alerts* 11/28/2023 Not-Taking SOFOSBUVIR 400 MG-VELPATASVIR 100 MG TABLET *Reorder from [employer] for eRx and Interaction Alerts* 11/28/2023 Active Furosemide 40 MG Tablet Oral 11/28/2023 Not-Taking Diclofenac Sodium 1% Gel Transdermal 11/28/2023 Not-Taking Cymbalta 30 MG Capsule Delayed Release Particles Oral 11/28/2023 Not-Taking LORazepam 0.5 MG Tablet 1 tablet Orally Once a day; Duration: 30 days 01/05/2025 Active Metoprolol Succinate ER 50 MG Tablet Extended Release 24 Hour Oral 11/28/2023 Active Baclofen 10 MG Tablet Oral 11/28/2023 Active HYDROcodone-Ibuprofen 7.5-200 MG Tablet Oral 11/28/2023 Not-Taking Bumetanide 1 MG Tablet Oral 11/28/2023 Active busPIRone HCl 15 MG Tablet Oral 11/28/2023 Not-Taking amLODIPine Besylate 5 MG Tablet Oral 11/28/2023 Active Linzess 72 mcg Capsule Oral 11/28/2023 Not-Taking Azithromycin 250 MG Tablet Oral 11/28/2023 Not-Taking Fluconazole 150 MG Tablet Oral 11/28/2023 Not-Taking busPIRone HCl 5 MG Tablet Oral 11/28/2023 Not-Taking Dexilant 30 MG Capsule Delayed Release Oral 11/28/2023 Not-Taking Social History Tobacco Use: Social History Observation Description Date Details (start date - stop date) Never Smoker NA - NA Sex Assigned At : Social History Observation Description Sex Assigned At Female Social History Miscellaneous: Social Info Question Answer Notes Advance Care Planning Do you have Power of [employer] for Health or Medical? No Tobacco Use: Social Info Question Answer Notes Tobacco Control (Standard) Tobacco use: Nonsmoker Additional Details Category Social Info Options Details Migrated Social History Migrated Social History Alcohol Intake: None 03/21/2023,Tobacco Years: Never smoker 06/07/2020 Problems Problem Type SNOMED Code ICD Code Onset Dates Problem Status W/U Status Risk Notes Problem Mild recurrent major depression (42480041) Major depressive disorder, recurrent, mild (F33.0) 4 Active confirmed Problem Moderate recurrent major depression (16773430) Major depressive disorder, recurrent, moderate (F33.1) Active confirmed Problem Generalized anxiety disorder (80896257) Generalized anxiety disorder (F41.1) 4 Active confirmed Problem Posttraumatic stress disorder (45433180) Post-traumatic stress disorder, chronic (F43.12) 4 Active confirmed Problem Insomnia disorder related to another mental disorder (21333558) Insomnia due to other mental disorder (F51.05) 4 Active confirmed Problem Obsessive-compuls kayla disorder (885434398) Obsessive-compu lsive disorder, unspecified (F42.9) Active confirmed Vital Signs Heart Rate 67 /min 06/04/2024 Height-cm 162.56 cm 06/04/2024 Blood pressure diastolic 79 mm Hg 06/04/2024 Weight-kg 90.08 kg 06/04/2024 Height 64.00 in 06/04/2024 Blood pressure systolic 118 mm Hg 06/04/2024 Weight 198.6 lbs 06/04/2024 BMI 34.09 kg/m2 06/04/2024 Encounters Encounter Location Date Provider Diagnosis [facility] [place] [id number] [facility] [address] [place] [address] 04/24/2024 Nan Wilson Generalized anxiety disorder F41.1 ; Major depressive disorder, recurrent, moderate F33.1 and Post-traumatic stress disorder, chronic F43.12 [facility] [place] [address] [address] 05/29/2024 Nan Wilson Generalized anxiety disorder F41.1 ; Major depressive disorder, recurrent, moderate F33.1 ; Post-traumatic stress disorder, chronic F43.12 and Obsessive-compulsive disorder, unspecified F42.9 [facility] [address] [address] 06/04/2024 Honey Corona Generalized anxiety disorder F41.1 ; Major depressive disorder, recurrent, mild F33.0 ; Post-traumatic stress disorder, chronic F43.12 ; Insomnia due to other mental disorder F51.05 and Obsessive-compulsive disorder, unspecified F42.9 [facility] [address] [facility] [address] [place] [address] 07/27/2024 Nan Wilson Generalized anxiety disorder F41.1 ; Major depressive disorder, recurrent, moderate F33.1 ; Post-traumatic stress disorder, chronic F43.12 and Obsessive-compulsive disorder, unspecified F42.9 [facility] [address] [facility] [address] [place] [address] 08/11/2024 Nan Wilson Generalized anxiety disorder F41.1 ; Major depressive disorder, recurrent, moderate F33.1 and Post-traumatic stress disorder, chronic F43.12 [facility] [address] [address] 08/24/2024 Nan Wilson Generalized anxiety disorder F41.1 ; Major depressive disorder, recurrent, moderate F33.1 and Post-traumatic stress disorder, chronic F43.[address] [address] 09/08/2024 Nan Wilson Generalized anxiety disorder F41.1 ; Major depressive disorder, recurrent, moderate F33.1 and Post-traumatic stress disorder, chronic F43.[address] [address] 09/22/2024 Nan Wilson Generalized anxiety disorder F41.1 ; Major depressive disorder, recurrent, moderate F33.1 ; Post-traumatic stress disorder, chronic F43.12 and Obsessive-compulsive disorder, unspecified F42.[address] [address] 09/29/2024 Honey Corona Generalized anxiety disorder F41.[address] [address] 10/06/2024 Nan Wilson Generalized anxiety disorder F41.1 ; Major depressive disorder, recurrent, moderate F33.1 and Post-traumatic stress disorder, chronic F43.[address] [address] 11/03/2024 Nan Wilson Major depressive disorder, recurrent, moderate F33.1 ; Generalized anxiety disorder F41.1 ; Post-traumatic stress disorder, chronic F43.12 and Encounter for screening for depression Z13.31 [address] [address] 12/07/2024 Nan Wilson Major depressive disorder, recurrent, moderate F33.1 ; Post-traumatic stress disorder, chronic F43.12 ; Generalized anxiety disorder F41.1 ; Obsessive-compulsive disorder, unspecified F42.9 and Encounter for screening for depression Z13.[address] [address] 12/15/2024 Nan Wilson Major depressive disorder, recurrent, moderate F33.1 ; Obsessive-compulsive disorder, unspecified F42.9 ; Post-traumatic stress disorder, chronic F43.12 ; Generalized anxiety disorder F41.1 and Encounter for screening for depression Z13.[address] [address] 12/23/2024 Nan Wilson Major depressive disorder, recurrent, moderate F33.1 ; Post-traumatic stress disorder, chronic F43.12 ; Generalized anxiety disorder F41.1 and Encounter for screening for depression Z13.[address] [address] 12/29/2024 Nan Wilson Major depressive disorder, recurrent, moderate F33.1 ; Generalized anxiety disorder F41.1 ; Post-traumatic stress disorder, chronic F43.12 and Encounter for screening for depression Z13.[address] [address] 01/05/2025 Honey Corona Negative depression screening Z13.31 and Generalized anxiety disorder F41.[address] [address] 02/02/2025 Nan Wilson Major depressive disorder, recurrent, moderate F33.1 ; Generalized anxiety disorder F41.1 ; Post-traumatic stress disorder, chronic F43.12 ; Obsessive-compulsive disorder, unspecified F42.9 and Encounter for screening for depression Z13.[address] [address] 02/23/2025 Nan Wilson Major depressive disorder, recurrent, moderate F33.1 ; Generalized anxiety disorder F41.1 ; Post-traumatic stress disorder, chronic F43.12 ; Obsessive-compulsive disorder, unspecified F42.9 and Encounter for screening for depression Z13.[address] [address] 03/02/2025 Nan Wilson Major depressive disorder, recurrent, moderate F33.1 ; Post-traumatic stress disorder, chronic F43.12 and Generalized anxiety disorder F41.[address] [address] 03/16/2025 Nan Wilson Major depressive disorder, recurrent, moderate F33.1 ; Obsessive-compulsive disorder, unspecified F42.9 ; Post-traumatic stress disorder, chronic F43.12 and Generalized anxiety disorder F41.1 [facility], [facility] [address] [place] [address] 04/19/2025 Nan Wilson Major depressive disorder, recurrent, moderate F33.1 ; Generalized anxiety disorder F41.1 and Post-traumatic stress disorder, chronic F43.12 [facility], [facility] [address] [place] [address] 04/20/2025 Honey Corona [facility], [facility] [address] [place] [address] 05/15/2024 Nan Wilson [facility], [facility] [address] [place] [address] 12/15/2024 Honey Corona [facility], [facility] [address] [place] [address] 04/24/2024 Honey Corona [facility], [facility] [address] [place] [address] 05/28/2024 Honey Corona [facility], [facility] [address] [place] [address] 09/21/2024 Honey Therverena [facility], [facility] [address] [place] [address] 09/29/2024 Honey Corona Generalized anxiety disorder F41.1 [facility], [facility] [address] [place] [address] 10/06/2024 Honey Corona [facility], [facility] [address] [place] [address] 12/06/2024 Honey Corona [facility], [facility] [address] [place] [address] 01/04/2025 Honey Corona [facility], [facility] [address] [place] [address] 02/02/2025 Honey Corona [facility], [facility] [address] [place] [address] 02/09/2025 Honey Corona [facility], [facility] [address] [place] [address] 03/16/2025 Honey Corona [facility] [address] [place] [address] 04/19/2025 Nan Wilson Assessments Encounter Date Diagnosis (ICD Code) Assessment Notes Treatment Notes Treatment Clinical Notes Section Notes 05/29/2024 Major depressive disorder, recurrent, moderate (ICD-10 - F33.1) Anxiety and Stress - Assessment: Patient experiences anxiety and stress. - Plan: - Encourage her to engage in stress reduction techniques, such as deep breathing exercises, meditation, or yoga - Consider referral to a mental health professional for further evaluation and support in managing anxiety and stress related to family and personal issues Nutrition and Dietary Concerns - Assessment: Patient has nutrition and dietary concerns. - Plan: - Encourage her to continue exploring plant-based and dairy-free alternatives - Consult with a registered dietitian for personalized dietary recommendations and guidance on reintroducing foods (Angela Montero). Employment and Caregiving Responsibilities - Assessment: Patient has employment and caregiving responsibilities . - Plan: - Encourage her to prioritize self-care and establish boundaries in caregiving roles - Support her in seeking additional resources and assistance for caregiving responsibilities , as needed 05/29/2024 Generalized anxiety disorder (ICD-10 - F41.1) Anxiety and Stress - Assessment: Patient experiences anxiety and stress. - Plan: - Encourage her to engage in stress reduction techniques, such as deep breathing exercises, meditation, or yoga - Consider referral to a mental health professional for further evaluation and support in managing anxiety and stress related to family and personal issues Nutrition and Dietary Concerns - Assessment: Patient has nutrition and dietary concerns. - Plan: - Encourage her to continue exploring plant-based and dairy-free alternatives - Consult with a registered dietitian for personalized dietary recommendations and guidance on reintroducing foods (Angela Montero). Employment and Caregiving Responsibilities - Assessment: Patient has employment and caregiving responsibilities . - Plan: - Encourage her to prioritize self-care and establish boundaries in caregiving roles - Support her in seeking additional resources and assistance for caregiving responsibilities , as needed 06/04/2024 Major depressive disorder, recurrent, mild (ICD-10 - F33.0) Preventing Depression From Coming Back: Care Instructions material was published, Learning About Depression Screening material was published, Learning About How to Get Help During a Mental Health Crisis material was published, Learning About Depression material was published Depression therapy Anxiety- discuss and educated on rx options Ativan therapy Discussed and educated pt regarding benzodiazepines are generally not intended for prolonged use and that use can cause tolerance, dependence, depression, and associated memory issues including dementias (this list is not exhaustive). Benzodiazepine use is generally not recommended concurrently with pain medications and/or other controlled substances Insomnia- sleep hygeine OCD- therapy PTSD- therapy http_s://www.nam i.org/About-Ment al-Illness/Menta m-Zlkodt-Pmmfdly ons http_s://psychce lemonade.uk.[employer]/deprjulia aleena/the-cogniti zm-bmxchlfy-zi-d epression#treatm ents http__s://www.ni .nih.gov/healt h/topics/mental- health-medicatio ns http__s://www.na mi.org/About-Men sweetie-Illness/Karla tments/Mental-He alth-Medications educated on all medications, benefits, side effects and risk, and educated on depression, anxiety, and ADHD, mood d/o and educated on compliance of medications, metabolic and movement d/o education appointment is, continue therapy discussion with patient about course of treatment and patient instructions. education on serotonin syndrome SSRI/SNRI side effects discussed including but not limited to, gastric upset, nausea, vomiting, diarrhea and/or constipation, weight changes, sexual side effects including loss of libido, increased suicidal thoughts/behavio rs in children and young adults, and serotonin syndrome. Patient educated on all medications including potential benefits, side effects, risks. Educated on proper dosing schedule and importance of compliance Medication Management and Follow-Up - Plan: - Schedule follow-up appointments every 1-3 months to monitor the patient's response to the medication regimen. - Reinforce the importance of avoiding recreational drug use due to potential neurotoxicity and interactions with prescribed medications 06/04/2024 Generalized anxiety disorder (ICD-10 - F41.1) Learning About Generalized Anxiety Disorder material was published, Generalized Anxiety Disorder: Care Instructions material was published, Learning About Anxiety Disorders material was published Depression therapy Anxiety- discuss and educated on rx options Ativan therapy Discussed and educated pt regarding benzodiazepines are generally not intended for prolonged use and that use can cause tolerance, dependence, depression, and associated memory issues including dementias (this list is not exhaustive). Benzodiazepine use is generally not recommended concurrently with pain medications and/or other controlled substances Insomnia- sleep hygeine OCD- therapy PTSD- therapy http_s://www.nam i.org/About-Ment al-Illness/Menta c-Yazoze-Oxhmwou ons http_s://psychce Loterity/silas flood/the-cogniti zh-pltvubkm-ef-d epression#treatm ents http__s://www.ni .nih.gov/healt h/topics/mental- health-medicatio ns http__s://www.na mi.org/About-Men sweetie-Illness/Karla tments/Mental-He alth-Medications educated on all medications, benefits, side effects and risk, and educated on depression, anxiety, and ADHD, mood d/o and educated on compliance of medications, metabolic and movement d/o education appointment is, continue therapy discussion with patient about course of treatment and patient instructions. education on serotonin syndrome SSRI/SNRI side effects discussed including but not limited to, gastric upset, nausea, vomiting, diarrhea and/or constipation, weight changes, sexual side effects including loss of libido, increased suicidal thoughts/behavio rs in children and young adults, and serotonin syndrome. Patient educated on all medications including potential benefits, side effects, risks. Educated on proper dosing schedule and importance of compliance Medication Management and Follow-Up - Plan: - Schedule follow-up appointments every 1-3 months to monitor the patient's response to the medication regimen. - Reinforce the importance of avoiding recreational drug use due to potential neurotoxicity and interactions with prescribed medications 07/27/2024 Major depressive disorder, recurrent, moderate (ICD-10 - F33.1) Anxiety and Stress Management - Assessment: Patient reports high levels of stress related to work and family situations. - Plan: - Identify and eliminate high-stress factors in life, including toxic relationships and work situations. - Consider engaging in therapy or counseling to address anxiety and coping mechanisms. - Practice relaxation techniques, such as deep breathing exercises, meditation, or yoga. Dietary Modifications and Weight Management - Assessment: Patient mentions trying dairy-free and gluten-free alternatives for holiday meals. - Plan: - Continue working with a dietitian to identify tolerable foods and create a balanced meal plan. - Focus on portion control and mindful eating to address hunger and weight concerns. - Explore alternative food options, such as dairy-free and gluten-free products, to maintain a satisfying diet. Family Dynamics and Child Welfare Concerns - Assessment: Patient discusses concerns about child welfare and safety in a complex family situation. - Plan: - Continue advocating for the children's needs, including therapy, educational support, and medical care. - Maintain open communication with the Department of Family Services and other relevant agencies. - Encourage the family to seek appropriate resources and support for their individual and collective needs. Self-Care and Emotional Well-being - Assessment: Patient expresses feeling overwhelmed and emotionally drained due to work and family situations. - Plan: - Prioritize self-care and set boundaries to prevent burnout and emotional distress. - Seek support from friends, family, or support groups to share experiences and coping strategies. - Consider engaging in personal therapy or counseling to address emotional challenges and maintain mental health. Each plan component addresses specific issues identified during the assessment, focusing on practical strategies and supportive measures to improve the patient's overall health and well-being. 07/27/2024 Generalized anxiety disorder (ICD-10 - F41.1) Anxiety and Stress Management - Assessment: Patient reports high levels of stress related to work and family situations. - Plan: - Identify and eliminate high-stress factors in life, including toxic relationships and work situations. - Consider engaging in therapy or counseling to address anxiety and coping mechanisms. - Practice relaxation techniques, such as deep breathing exercises, meditation, or yoga. Dietary Modifications and Weight Management - Assessment: Patient mentions trying dairy-free and gluten-free alternatives for holiday meals. - Plan: - Continue working with a dietitian to identify tolerable foods and create a balanced meal plan. - Focus on portion control and mindful eating to address hunger and weight concerns. - Explore alternative food options, such as dairy-free and gluten-free products, to maintain a satisfying diet. Family Dynamics and Child Welfare Concerns - Assessment: Patient discusses concerns about child welfare and safety in a complex family situation. - Plan: - Continue advocating for the children's needs, including therapy, educational support, and medical care. - Maintain open communication with the Department of Family Services and other relevant agencies. - Encourage the family to seek appropriate resources and support for their individual and collective needs. Self-Care and Emotional Well-being - Assessment: Patient expresses feeling overwhelmed and emotionally drained due to work and family situations. - Plan: - Prioritize self-care and set boundaries to prevent burnout and emotional distress. - Seek support from friends, family, or support groups to share experiences and coping strategies. - Consider engaging in personal therapy or counseling to address emotional challenges and maintain mental health. Each plan component addresses specific issues identified during the assessment, focusing on practical strategies and supportive measures to improve the patient's overall health and well-being. 08/11/2024 Major depressive disorder, recurrent, moderate (ICD-10 - F33.1) Anxiety and Sleep Disturbance - Assessment: Patient experiences anxiety and sleep disturbance. - Plan: - Continue current medications as prescribed. - Schedule a follow-up appointment with the primary care provider to discuss medication adjustments if symptoms persist. - Encourage the patient to practice good sleep hygiene and consider relaxation techniques such as deep breathing exercises or meditation. Gastrointestinal Symptoms and Possible Flare - Assessment: Patient experienced increased pain and symptoms after consuming onions, suggesting potential food triggers. - Plan: - Continue antibiotics as prescribed by the ER. - Schedule a telehealth appointment with the colorectal surgeon on the to discuss the rectocele and potential treatment options. Family and Relationship Stressors - Assessment: Patient is experiencing family and relationship stressors. - Plan: - Encourage the patient to continue attending therapy sessions to address emotional and relational concerns. - Encourage open communication and boundary-setting within relationships to promote healthier dynamics. Each plan component addresses specific issues identified during the assessment, focusing on practical strategies and follow-up care to improve the patient's overall health and well-being. 08/11/2024 Generalized anxiety disorder (ICD-10 - F41.1) Anxiety and Sleep Disturbance - Assessment: Patient experiences anxiety and sleep disturbance. - Plan: - Continue current medications as prescribed. - Schedule a follow-up appointment with the primary care provider to discuss medication adjustments if symptoms persist. - Encourage the patient to practice good sleep hygiene and consider relaxation techniques such as deep breathing exercises or meditation. Gastrointestinal Symptoms and Possible Flare - Assessment: Patient experienced increased pain and symptoms after consuming onions, suggesting potential food triggers. - Plan: - Continue antibiotics as prescribed by the ER. - Schedule a telehealth appointment with the colorectal surgeon on the to discuss the rectocele and potential treatment options. Family and Relationship Stressors - Assessment: Patient is experiencing family and relationship stressors. - Plan: - Encourage the patient to continue attending therapy sessions to address emotional and relational concerns. - Encourage open communication and boundary-setting within relationships to promote healthier dynamics. Each plan component addresses specific issues identified during the assessment, focusing on practical strategies and follow-up care to improve the patient's overall health and well-being. 04/24/2024 Generalized anxiety disorder (ICD-10 - F41.1) Psychological and Emotional Stress Assessment: Aden is experiencing significant stress related to her health issues and personal circumstances, including family dynamics and caregiving responsibilities , which may exacerbate her physical health problems. She expresses feelings of being overwhelmed and concerns about her father's well-being. Follow-Up Care Assessment: Aden has upcoming appointments and is under continuous care for her complex medical and surgical needs. She has follow-up appointments scheduled for 05/15 and 05/29. Plan: Ensure all scheduled appointments are kept, and prepare for potential surgical interventions if necessary. 08/24/2024 Generalized anxiety disorder (ICD-10 - F41.1) 09/22/2024 Major depressive disorder, recurrent, moderate (ICD-10 - F33.1) 09/22/2024 Generalized anxiety disorder (ICD-10 - F41.1) 09/29/2024 Generalized anxiety disorder (ICD-10 - F41.1) Depression mild in therapy no rx Anxiety patient takes rx Ativan 0.5 MG - 2 -3 pills in 1 month colon issues and may have colon removed 10/27 in PT Insomnia sleep hygiene OCD stable tehrapy PTSD therapy http_s://www.nam i.org/About-Ment al-Illness/Menta t-Pqukqj-Aiykvll ons http_s://psychce Loterity/silas aleena/the-cogniti sh-mfuqouub-eh-d epression#treatm ents http__s://www.ni mh.nih.gov/healt h/topics/mental- health-medicatio ns http__s://www.na mi.org/About-Men sweetie-Illness/Karla tments/Mental-He alth-Medications educated on all medications, benefits, side effects and risk, and educated on depression, anxiety, and ADHD, mood d/o and educated on compliance of medications, metabolic and movement d/o education appointment is, continue therapy discussion with patient about course of treatment and patient instructions. education on serotonin syndrome SSRI/SNRI side effects discussed including but not limited to, gastric upset, nausea, vomiting, diarrhea and/or constipation, weight changes, sexual side effects including loss of libido, increased suicidal thoughts/behavio rs in children and young adults, and serotonin syndrome. Discussed and educated pt regarding benzodiazepines are generally not intended for prolonged use and that use can cause tolerance, dependence, depression, and associated memory issues including dementias (this list is not exhaustive). Benzodiazepine use is generally not recommended concurrently with pain medications and/or other controlled substances Medication Management and Follow-Up - Plan: - Schedule follow-up appointments every 1-3 months to monitor the patient's response to the medication regimen. - Reinforce the importance of avoiding recreational drug use due to potential neurotoxicity and interactions with prescribed medications 09/29/2024 Generalized anxiety disorder (ICD-10 - F41.1) 10/06/2024 Major depressive disorder, recurrent, moderate (ICD-10 - F33.1) 10/06/2024 Generalized anxiety disorder (ICD-10 - F41.1) 11/03/2024 Major depressive disorder, recurrent, moderate (ICD-10 - F33.1) 11/03/2024 Generalized anxiety disorder (ICD-10 - F41.1) 09/08/2024 Major depressive disorder, recurrent, moderate (ICD-10 - F33.1) 09/08/2024 Generalized anxiety disorder (ICD-10 - F41.1) 12/07/2024 Major depressive disorder, recurrent, moderate (ICD-10 - F33.1) 12/07/2024 Post-traumati c stress disorder, chronic (ICD-10 - F43.12) 12/15/2024 Major depressive disorder, recurrent, moderate (ICD-10 - F33.1) 12/23/2024 Major depressive disorder, recurrent, moderate (ICD-10 - F33.1) 12/29/2024 Major depressive disorder, recurrent, moderate (ICD-10 - F33.1) 12/29/2024 Generalized anxiety disorder (ICD-10 - F41.1) 12/23/2024 Post-traumati c stress disorder, chronic (ICD-10 - F43.12) 01/05/2025 Negative depression screening (ICD-10 - Z13.31) Depression mild in therapy, EDMR and pre martial therapy no rx Anxiety patient takes rx Ativan 0.5 MG - 2 -3 pills in 1 month colon issues and may have colon removed 10/27 in PT Insomnia sleep hygiene OCD stable tehrapy PTSD therapy http_s://www.nam i.org/About-Ment al-Illness/Menta g-Qmcvza-Fvnymko ons http_s://psychce lemonade.uk.com/silas aleena/the-cogniti fh-qyqvmsoq-by-d epression#treatm ents http__s://www.ni .nih.gov/healt h/topics/mental- health-medicatio ns http__s://www.na mi.org/About-Men sweetie-Illness/Karla tments/Mental-He alth-Medications educated on all medications, benefits, side effects and risk, and educated on depression, anxiety, and ADHD, mood d/o and educated on compliance of medications, metabolic and movement d/o education appointment is, continue therapy discussion with patient about course of treatment and patient instructions. education on serotonin syndrome SSRI/SNRI side effects discussed including but not limited to, gastric upset, nausea, vomiting, diarrhea and/or constipation, weight changes, sexual side effects including loss of libido, increased suicidal thoughts/behavio rs in children and young adults, and serotonin syndrome. Discussed and educated pt regarding benzodiazepines are generally not intended for prolonged use and that use can cause tolerance, dependence, depression, and associated memory issues including dementias (this list is not exhaustive). Benzodiazepine use is generally not recommended concurrently with pain medications and/or other controlled substances Medication Management and Follow-Up - Plan: - Schedule follow-up appointments every 1-3 months to monitor the patient's response to the medication regimen. - Reinforce the importance of avoiding recreational drug use due to potential neurotoxicity and interactions with prescribed medications 02/02/2025 Major depressive disorder, recurrent, moderate (ICD-10 - F33.1) 02/02/2025 Generalized anxiety disorder (ICD-10 - F41.1) 02/23/2025 Major depressive disorder, recurrent, moderate (ICD-10 - F33.1) 02/23/2025 Generalized anxiety disorder (ICD-10 - F41.1) 03/02/2025 Major depressive disorder, recurrent, moderate (ICD-10 - F33.1) 03/02/2025 Post-traumati c stress disorder, chronic (ICD-10 - F43.12) 03/16/2025 Major depressive disorder, recurrent, moderate (ICD-10 - F33.1) 03/16/2025 Obsessive-com pulsive disorder, unspecified (ICD-10 - F42.9) 04/19/2025 Major depressive disorder, recurrent, moderate (ICD-10 - F33.1) 04/19/2025 Generalized anxiety disorder (ICD-10 - F41.1) 04/19/2025 Post-traumati c stress disorder, chronic (ICD-10 - F43.12) 03/16/2025 Post-traumati c stress disorder, chronic (ICD-10 - F43.12) 03/02/2025 Generalized anxiety disorder (ICD-10 - F41.1) 02/23/2025 Post-traumati c stress disorder, chronic (ICD-10 - F43.12) 02/02/2025 Post-traumati c stress disorder, chronic (ICD-10 - F43.12) 01/05/2025 Generalized anxiety disorder (ICD-10 - F41.1) Depression mild in therapy, EDMR and pre martial therapy no rx Anxiety patient takes rx Ativan 0.5 MG - 2 -3 pills in 1 month colon issues and may have colon removed 10/27 in PT Insomnia sleep hygiene OCD stable tehrapy PTSD therapy http_s://www.nam i.org/About-Ment al-Illness/Menta p-Zgrdoz-Rihussw ons http_s://psychce lemonade.uk.com/silas flood/the-cogniti le-efxlspjb-mw-d epression#treatm ents http__s://www.ni .nih.gov/healt h/topics/mental- health-medicatio ns http__s://www.na mi.org/About-Men sweetie-Illness/Karla tments/Mental-He alth-Medications educated on all medications, benefits, side effects and risk, and educated on depression, anxiety, and ADHD, mood d/o and educated on compliance of medications, metabolic and movement d/o education appointment is, continue therapy discussion with patient about course of treatment and patient instructions. education on serotonin syndrome SSRI/SNRI side effects discussed including but not limited to, gastric upset, nausea, vomiting, diarrhea and/or constipation, weight changes, sexual side effects including loss of libido, increased suicidal thoughts/behavio rs in children and young adults, and serotonin syndrome. Discussed and educated pt regarding benzodiazepines are generally not intended for prolonged use and that use can cause tolerance, dependence, depression, and associated memory issues including dementias (this list is not exhaustive). Benzodiazepine use is generally not recommended concurrently with pain medications and/or other controlled substances Medication Management and Follow-Up - Plan: - Schedule follow-up appointments every 1-3 months to monitor the patient's response to the medication regimen. - Reinforce the importance of avoiding recreational drug use due to potential neurotoxicity and interactions with prescribed medications 12/29/2024 Post-traumati c stress disorder, chronic (ICD-10 - F43.12) 12/23/2024 Generalized anxiety disorder (ICD-10 - F41.1) 12/15/2024 Obsessive-com pulsive disorder, unspecified (ICD-10 - F42.9) 12/07/2024 Generalized anxiety disorder (ICD-10 - F41.1) 09/08/2024 Post-traumati c stress disorder, chronic (ICD-10 - F43.12) 11/03/2024 Post-traumati c stress disorder, chronic (ICD-10 - F43.12) 10/06/2024 Post-traumati c stress disorder, chronic (ICD-10 - F43.12) 09/22/2024 Post-traumati c stress disorder, chronic (ICD-10 - F43.12) 04/24/2024 Post-traumati c stress disorder, chronic (ICD-10 - F43.12) Psychological and Emotional Stress Assessment: Aden is experiencing significant stress related to her health issues and personal circumstances, including family dynamics and caregiving responsibilities , which may exacerbate her physical health problems. She expresses feelings of being overwhelmed and concerns about her father's well-being. Follow-Up Care Assessment: Aden has upcoming appointments and is under continuous care for her complex medical and surgical needs. She has follow-up appointments scheduled for 05/15 and 05/29. Plan: Ensure all scheduled appointments are kept, and prepare for potential surgical interventions if necessary. 08/11/2024 Post-traumati c stress disorder, chronic (ICD-10 - F43.12) Anxiety and Sleep Disturbance - Assessment: Patient experiences anxiety and sleep disturbance. - Plan: - Continue current medications as prescribed. - Schedule a follow-up appointment with the primary care provider to discuss medication adjustments if symptoms persist. - Encourage the patient to practice good sleep hygiene and consider relaxation techniques such as deep breathing exercises or meditation. Gastrointestinal Symptoms and Possible Flare - Assessment: Patient experienced increased pain and symptoms after consuming onions, suggesting potential food triggers. - Plan: - Continue antibiotics as prescribed by the ER. - Schedule a telehealth appointment with the colorectal surgeon on the to discuss the rectocele and potential treatment options. Family and Relationship Stressors - Assessment: Patient is experiencing family and relationship stressors. - Plan: - Encourage the patient to continue attending therapy sessions to address emotional and relational concerns. - Encourage open communication and boundary-setting within relationships to promote healthier dynamics. Each plan component addresses specific issues identified during the assessment, focusing on practical strategies and follow-up care to improve the patient's overall health and well-being. 08/24/2024 Major depressive disorder, recurrent, moderate (ICD-10 - F33.1) 07/27/2024 Post-traumati c stress disorder, chronic (ICD-10 - F43.12) Anxiety and Stress Management - Assessment: Patient reports high levels of stress related to work and family situations. - Plan: - Identify and eliminate high-stress factors in life, including toxic relationships and work situations. - Consider engaging in therapy or counseling to address anxiety and coping mechanisms. - Practice relaxation techniques, such as deep breathing exercises, meditation, or yoga. Dietary Modifications and Weight Management - Assessment: Patient mentions trying dairy-free and gluten-free alternatives for holiday meals. - Plan: - Continue working with a dietitian to identify tolerable foods and create a balanced meal plan. - Focus on portion control and mindful eating to address hunger and weight concerns. - Explore alternative food options, such as dairy-free and gluten-free products, to maintain a satisfying diet. Family Dynamics and Child Welfare Concerns - Assessment: Patient discusses concerns about child welfare and safety in a complex family situation. - Plan: - Continue advocating for the children's needs, including therapy, educational support, and medical care. - Maintain open communication with the Department of Family Services and other relevant agencies. - Encourage the family to seek appropriate resources and support for their individual and collective needs. Self-Care and Emotional Well-being - Assessment: Patient expresses feeling overwhelmed and emotionally drained due to work and family situations. - Plan: - Prioritize self-care and set boundaries to prevent burnout and emotional distress. - Seek support from friends, family, or support groups to share experiences and coping strategies. - Consider engaging in personal therapy or counseling to address emotional challenges and maintain mental health. Each plan component addresses specific issues identified during the assessment, focusing on practical strategies and supportive measures to improve the patient's overall health and well-being. 06/04/2024 Post-traumati c stress disorder, chronic (ICD-10 - F43.12) Post-Traumatic Stress Disorder (PTSD): Care Instructions material was published Depression therapy Anxiety- discuss and educated on rx options Ativan therapy Discussed and educated pt regarding benzodiazepines are generally not intended for prolonged use and that use can cause tolerance, dependence, depression, and associated memory issues including dementias (this list is not exhaustive). Benzodiazepine use is generally not recommended concurrently with pain medications and/or other controlled substances Insomnia- sleep hygeine OCD- therapy PTSD- therapy http_s://www.nam i.org/About-Ment al-Illness/Menta w-Dnrurn-Jaagenk ons http_s://psychQuanttus/silas flood/the-cogniti yl-rbyrdtqv-gk-d epression#treatm ents http__s://www.ni mh.nih.gov/healt h/topics/mental- health-medicatio ns http__s://www.na mi.org/About-Men sweetie-Illness/Karla tments/Mental-He alth-Medications educated on all medications, benefits, side effects and risk, and educated on depression, anxiety, and ADHD, mood d/o and educated on compliance of medications, metabolic and movement d/o education appointment is, continue therapy discussion with patient about course of treatment and patient instructions. education on serotonin syndrome SSRI/SNRI side effects discussed including but not limited to, gastric upset, nausea, vomiting, diarrhea and/or constipation, weight changes, sexual side effects including loss of libido, increased suicidal thoughts/behavio rs in children and young adults, and serotonin syndrome. Patient educated on all medications including potential benefits, side effects, risks. Educated on proper dosing schedule and importance of compliance Medication Management and Follow-Up - Plan: - Schedule follow-up appointments every 1-3 months to monitor the patient's response to the medication regimen. - Reinforce the importance of avoiding recreational drug use due to potential neurotoxicity and interactions with prescribed medications 05/29/2024 Post-traumati c stress disorder, chronic (ICD-10 - F43.12) Anxiety and Stress - Assessment: Patient experiences anxiety and stress. - Plan: - Encourage her to engage in stress reduction techniques, such as deep breathing exercises, meditation, or yoga - Consider referral to a mental health professional for further evaluation and support in managing anxiety and stress related to family and personal issues Nutrition and Dietary Concerns - Assessment: Patient has nutrition and dietary concerns. - Plan: - Encourage her to continue exploring plant-based and dairy-free alternatives - Consult with a registered dietitian for personalized dietary recommendations and guidance on reintroducing foods (Angela Montero). Employment and Caregiving Responsibilities - Assessment: Patient has employment and caregiving responsibilities . - Plan: - Encourage her to prioritize self-care and establish boundaries in caregiving roles - Support her in seeking additional resources and assistance for caregiving responsibilities , as needed 04/24/2024 Major depressive disorder, recurrent, moderate (ICD-10 - F33.1) Psychological and Emotional Stress Assessment: Aden is experiencing significant stress related to her health issues and personal circumstances, including family dynamics and caregiving responsibilities , which may exacerbate her physical health problems. She expresses feelings of being overwhelmed and concerns about her father's well-being. Follow-Up Care Assessment: Aden has upcoming appointments and is under continuous care for her complex medical and surgical needs. She has follow-up appointments scheduled for 05/15 and 05/29. Plan: Ensure all scheduled appointments are kept, and prepare for potential surgical interventions if necessary. 05/29/2024 Obsessive-com pulsive disorder, unspecified (ICD-10 - F42.9) Anxiety and Stress - Assessment: Patient experiences anxiety and stress. - Plan: - Encourage her to engage in stress reduction techniques, such as deep breathing exercises, meditation, or yoga - Consider referral to a mental health professional for further evaluation and support in managing anxiety and stress related to family and personal issues Nutrition and Dietary Concerns - Assessment: Patient has nutrition and dietary concerns. - Plan: - Encourage her to continue exploring plant-based and dairy-free alternatives - Consult with a registered dietitian for personalized dietary recommendations and guidance on reintroducing foods (Angela Montero). Employment and Caregiving Responsibilities - Assessment: Patient has employment and caregiving responsibilities . - Plan: - Encourage her to prioritize self-care and establish boundaries in caregiving roles - Support her in seeking additional resources and assistance for caregiving responsibilities , as needed 06/04/2024 Insomnia due to other mental disorder (ICD-10 - F51.05) Depression therapy Anxiety- discuss and educated on rx options Ativan therapy Discussed and educated pt regarding benzodiazepines are generally not intended for prolonged use and that use can cause tolerance, dependence, depression, and associated memory issues including dementias (this list is not exhaustive). Benzodiazepine use is generally not recommended concurrently with pain medications and/or other controlled substances Insomnia- sleep hygeine OCD- therapy PTSD- therapy http_s://www.nam i.org/About-Ment al-Illness/Menta j-Jgfbmk-Lfjkitl ons http_s://psychQuanttus/depres aleena/the-cogniti zv-mkhryapm-ng-d epression#treatm ents http__s://www.ni .nih.gov/healt h/topics/mental- health-medicatio ns http__s://www.na mi.org/About-Men sweetie-Illness/Karla tments/Mental-He alth-Medications educated on all medications, benefits, side effects and risk, and educated on depression, anxiety, and ADHD, mood d/o and educated on compliance of medications, metabolic and movement d/o education appointment is, continue therapy discussion with patient about course of treatment and patient instructions. education on serotonin syndrome SSRI/SNRI side effects discussed including but not limited to, gastric upset, nausea, vomiting, diarrhea and/or constipation, weight changes, sexual side effects including loss of libido, increased suicidal thoughts/behavio rs in children and young adults, and serotonin syndrome. Patient educated on all medications including potential benefits, side effects, risks. Educated on proper dosing schedule and importance of compliance Medication Management and Follow-Up - Plan: - Schedule follow-up appointments every 1-3 months to monitor the patient's response to the medication regimen. - Reinforce the importance of avoiding recreational drug use due to potential neurotoxicity and interactions with prescribed medications 07/27/2024 Obsessive-com pulsive disorder, unspecified (ICD-10 - F42.9) Anxiety and Stress Management - Assessment: Patient reports high levels of stress related to work and family situations. - Plan: - Identify and eliminate high-stress factors in life, including toxic relationships and work situations. - Consider engaging in therapy or counseling to address anxiety and coping mechanisms. - Practice relaxation techniques, such as deep breathing exercises, meditation, or yoga. Dietary Modifications and Weight Management - Assessment: Patient mentions trying dairy-free and gluten-free alternatives for holiday meals. - Plan: - Continue working with a dietitian to identify tolerable foods and create a balanced meal plan. - Focus on portion control and mindful eating to address hunger and weight concerns. - Explore alternative food options, such as dairy-free and gluten-free products, to maintain a satisfying diet. Family Dynamics and Child Welfare Concerns - Assessment: Patient discusses concerns about child welfare and safety in a complex family situation. - Plan: - Continue advocating for the children's needs, including therapy, educational support, and medical care. - Maintain open communication with the Department of Family Services and other relevant agencies. - Encourage the family to seek appropriate resources and support for their individual and collective needs. Self-Care and Emotional Well-being - Assessment: Patient expresses feeling overwhelmed and emotionally drained due to work and family situations. - Plan: - Prioritize self-care and set boundaries to prevent burnout and emotional distress. - Seek support from friends, family, or support groups to share experiences and coping strategies. - Consider engaging in personal therapy or counseling to address emotional challenges and maintain mental health. Each plan component addresses specific issues identified during the assessment, focusing on practical strategies and supportive measures to improve the patient's overall health and well-being. 08/24/2024 Post-traumati c stress disorder, chronic (ICD-10 - F43.12) 09/22/2024 Obsessive-com pulsive disorder, unspecified (ICD-10 - F42.9) 12/07/2024 Obsessive-com pulsive disorder, unspecified (ICD-10 - F42.9) 12/29/2024 Encounter for screening for depression (ICD-10 - Z13.31) 12/15/2024 Post-traumati c stress disorder, chronic (ICD-10 - F43.12) 12/23/2024 Encounter for screening for depression (ICD-10 - Z13.31) 02/02/2025 Obsessive-com pulsive disorder, unspecified (ICD-10 - F42.9) 02/23/2025 Obsessive-com pulsive disorder, unspecified (ICD-10 - F42.9) 03/16/2025 Generalized anxiety disorder (ICD-10 - F41.1) 02/23/2025 Encounter for screening for depression (ICD-10 - Z13.31) 12/07/2024 Encounter for screening for depression (ICD-10 - Z13.31) 12/15/2024 Generalized anxiety disorder (ICD-10 - F41.1) 11/03/2024 Encounter for screening for depression (ICD-10 - Z13.31) 06/04/2024 Obsessive-com pulsive disorder, unspecified (ICD-10 - F42.9) Obsessive-Compul sive Disorder: Care Instructions material was published Depression therapy Anxiety- discuss and educated on rx options Ativan therapy Discussed and educated pt regarding benzodiazepines are generally not intended for prolonged use and that use can cause tolerance, dependence, depression, and associated memory issues including dementias (this list is not exhaustive). Benzodiazepine use is generally not recommended concurrently with pain medications and/or other controlled substances Insomnia- sleep hygeine OCD- therapy PTSD- therapy http_s://www.nam i.org/About-Ment al-Illness/Menta t-Wodvbf-Jvwmtjh ons http_s://psychce lemonade.uk.com/depres aleena/the-cogniti xw-sezghlxb-ck-d epression#treatm ents http__s://www.ni .nih.gov/healt h/topics/mental- health-medicatio ns http__s://www.na mi.org/About-Men sweetie-Illness/Karla tments/Mental-He alth-Medications educated on all medications, benefits, side effects and risk, and educated on depression, anxiety, and ADHD, mood d/o and educated on compliance of medications, metabolic and movement d/o education appointment is, continue therapy discussion with patient about course of treatment and patient instructions. education on serotonin syndrome SSRI/SNRI side effects discussed including but not limited to, gastric upset, nausea, vomiting, diarrhea and/or constipation, weight changes, sexual side effects including loss of libido, increased suicidal thoughts/behavio rs in children and young adults, and serotonin syndrome. Patient educated on all medications including potential benefits, side effects, risks. Educated on proper dosing schedule and importance of compliance Medication Management and Follow-Up - Plan: - Schedule follow-up appointments every 1-3 months to monitor the patient's response to the medication regimen. - Reinforce the importance of avoiding recreational drug use due to potential neurotoxicity and interactions with prescribed medications 12/15/2024 Encounter for screening for depression (ICD-10 - Z13.31) 02/02/2025 Encounter for screening for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 Initiate EMDR therapy in the next session to address trauma associated with loss. - Encourage patient to schedule an appointment with a psychiatric nurse practitioner for medication evaluation. - Continue to monitor for signs of complicated grief, anxiety, or potential mood disorders. - Assess need for additional coping strategies to manage anniversary reactions and physical symptoms. Plan Of Treatment Next Appt Details Provider Name:Nan Arias Wilson, 04/26/2025 08:00:00 AM, [address], [place] [address], [place], [address], Provider Name:Nan Arias Wilson, 05/03/2025 11:00:00 AM, [address], [facility], [place], [address], Insurance Providers Payer Name Payer Address Payer Phone Subscriber Number Group Number Insured Name Patient Relationship to Insured Coverage Start Date Coverage End Date Medicare-I l Medicare [address] [place] [address] [id number] ADEN DIALLO Self - patient is the insured Medicaid-I l Medicaid [address] [address] [place] [address] [id number] ADEN DIALLO Self - patient is the insured Medical (General) History Medical History History ICD Code Problems: Abnormal grief reaction Chronic post-traumatic stress disorder Generalized anxiety disorder 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
--- OUTSIDE RECORDS SUMMARY | 2025-04-22 10:53 | XMS_ITS | Clinical Summary ---
Author Organization [facility] Address [address] [place] [address] Care Team Providers Care Cloth Painter Name Role Phone Jaspreet Kerr MD Primary Care Provider Xiomy Oliveros MD, Benson Tomlinson Unavailable [phone] Yamile Bhardwaj MD Unavailable + Allergies Active Allergy Reactions Criticality Noted Date Comments Lisinopril Anaphylaxis High 04/06/2018 Glecaprevir-Pibrentasvir Hives Medium 06/01/2024 Sumatriptan Acetaminophen-Codeine Rash Medium 06/04/2008 Medications METOPROLOL SUCCINATE ORALIndication s:hypertension Take 50 mg by mouth daily 07/25/20 18 Active dicyclomine (BENTYL) 20 mg tabletIndicati ons:Abdominal Pain with Cramps Take 1 tablet (20 mg total) by mouth 2 (two) times a day as needed Active fexofenadine (UZMA) 60 mg tabletIndicati ons:Allergic Rhinitis Take 1 tablet (60 mg total) by mouth daily Active fluticasone propionate (FLONASE) 50 mcg/actuation nasal spray Administer 2 sprays into each nostril 2 (two) times a day 16 g 01/30/20 22 Active Additional Information Patient taking differently:2 spray each nostrilAs needed, Reported on 10/19/2024 amLODIPine (NORVASC) 5 mg tablet 12/16/19 22 Active bumetanide (BUMEX) 1 mg tablet 12/16/19 22 Active polyethylene glycol (MIRALAX) 17 gram packetIndicati ons:constipati on Take 1 packet (17 g total) by mouth daily Active ondansetron (ZOFRAN) 4 mg tablet Take 1 tablet (4 mg total) by mouth every 6 (six) hours 12 tablet 05/05/20 23 Active albuterol 2.5 mg /3 mL (0.083 %) nebulizer solution Take 3 mL (2.5 mg total) by nebulization every 6 (six) hours as needed for wheezing 75 mL 09/05/19 24 Active baclofen (LIORESAL) 10 mg tablet Take 0.5 tablets (5 mg total) by mouth Pt takes half 04/10/20 24 Active lubiprostone (AMITIZA) 8 mcg capsule Take 1 capsule (8 mcg total) by mouth 2 (two) times a day with meals Take with meals 60 capsule 11 05/15/20 24 025 Active multivitamin-c alcium carb tablet,chewabl e Take by mouth Active amoxicillin-cl avulanate (AUGMENTIN) 875-125 mg per tabletIndicati ons:Abdominal/ Pelvic Infection Take 1 tablet by mouth every 12 (twelve) hours 14 tablet 08/07/19 25 Active bisacodyL 5 mg tablet The day before surgery take 2 tabs at 10 am with 8 oz of clear liquid. At 12 pm, take 2 more tabs with 8 oz of clear liquid. 4 tablet 09/08/19 25 Active Additional Information Patient not taking.Reported on 10/19/2024 magnesium citrate solution Take 296 mL by mouth once for 1 dose 296 mL 10/05/19 25 Active LORazepam (ATIVAN) 0.5 mg tablet daily 09/29/19 25 Active meclizine (ANTIVERT) 25 mg tablet Take 1 tablet (25 mg total) by mouth 3 (three) times a day as needed for dizziness 30 tablet 12/08/19 25 Active polyethylene glycol (MIRALAX) 17 gram/dose bulk powder Take 1 cap of Miralax one to twice daily as needed. 238 g 3 02/02/20 25 Active HYDROcodone-ac etaminophen (NORCO) 5-325 mg per tabletIndicati ons:Pain Take 1 tablet by mouth every 6 (six) hours as needed for pain 10 tablet 04/12/20 25 Active HYDROcodone-ac etaminophen (NORCO) 5-325 mg per tabletIndicati ons:Pain Take 1 tablet by mouth every 6 (six) hours as needed for pain 10 tablet 04/12/20 25 025 Discontinued Active Problems Problem Noted Date Diagnosed Date Slow transit constipation 09/08/2024 History of diverticulitis of colon 05/15/2024 Chronic idiopathic constipation 05/15/2024 Other chest pain 02/14/2022 Lower extremity edema 02/14/2022 Bronchospasm with bronchitis, acute 04/03/2019 Fibromyalgia 10/16/2018 Anxiety 10/16/2018 Benzodiazepine (tranquilizer) overdose 9 Rheumatoid arthritis 10/15/2018 Gastroesophageal reflux disease 06/04/2008 Hypertension 06/04/2008 Irritable bowel syndrome 06/04/2008 Encounters Date Type Department Care Team Description 04/20/2025 10:15 AM CDT Therapy [facility] [place] [address] [id number] Kim Babin, PT Constipation due to slow transit (Primary Dx); Other lack of coordination 04/13/2025 10:00 AM CDT Therapy [facility] [place] [address] [address] [address] Kim Babin, PT Constipation due to slow transit (Primary Dx); Other lack of coordination 04/12/2025 3:23 AM CDT - 04/12/2025 5:12 AM CDT Emergency [facility] Emergency Department [address] [place] [address] Cornelius Gallardo MD Acute right-sided thoracic back pain (Primary Dx) Discharge Disposition: Discharge to home or self care 04/06/2025 10:00 AM CDT Therapy [facility] [place] [address] [address] Kim Babin, PT Constipation due to slow transit (Primary Dx); Other lack of coordination 04/06/2025 Plan of Care Documentation [facility] [place] [address] [address] [id number] 03/31/2025 10:00 AM CDT Therapy [facility] [place] [address] Olaf, Kim, PT Constipation due to slow transit (Primary Dx); Other lack of coordination 03/17/2025 8:45 AM CDT Therapy [facility] Physical Therapy [facility] [place] [address] [place] [address] Olaf, Kim, PT Constipation due to slow transit (Primary Dx); Other lack of coordination 03/10/2025 10:30 AM CDT Telemedicine [facility] [facility] [address] [place] [address] [place] [id number] Imelda Cast, HILDA Irritable bowel syndrome with constipation (Primary Dx); Gastroesophageal reflux disease, unspecified whether esophagitis present; History of diverticulitis of colon 03/10/2025 8:30 AM CDT Therapy [facility] [place] [address] Olfa, Kim, PT Constipation due to slow transit (Primary Dx); Other lack of coordination 03/03/2025 8:30 AM CDT Therapy [facility] [place] [address] [address] Olaf, Kim, PT Constipation due to slow transit (Primary Dx); Other lack of coordination 02/22/2025 10:30 AM CDT Therapy [facility] [place] [address] Olaf, Kim, PT Constipation due to slow transit (Primary Dx); Other lack of coordination 02/03/2025 9:15 AM CDT Therapy [facility] [place] [address] Olaf, Kim, PT Constipation due to slow transit (Primary Dx); Other lack of coordination 02/01/2025 9:30 AM CDT Office Visit [facility] [address] [facility] [address] [place] [phone] Benson Stauffer Jr., MD Pelvic floor dysfunction (Primary Dx); Slow transit constipation 01/27/2025 8:30 AM CDT Therapy [facility] - [place] [address] Kim Babin PT Constipation due to slow transit (Primary Dx); Other lack of coordination 01/25/2025 1:30 PM CDT Telemedicine [facility] [address] [facility] [address] [place] [address] [place] [address] History of diverticulitis of colon (Primary Dx); Slow transit constipation from Last 3 Months Surgical History Surgery Date Site/Laterality Comments CHOLECYSTECTOMY 08/05/1998 - 08/04/1999 N/A TUBAL LIGATION TUBAL LIGATION 08/05/2003 - 08/04/2004 N/A Medical History Medical History Date Comments Hypertension Rheumatoid arthritis (HCC) Hepatitis C Fibromyalgia Elevated LFTs Chest pain Covid Asthma Arthritis Anxiety Family History Medical History Relation Name Comments Pacemaker Brother 1 heart surgery Brother 2 Heart murmur Father Hypertension Mother Mitral valve prolapse Mother Relation Name Status Comments Brother 1 Alive Brother 2 Other Father Alive Mother Alive Social History Tobacco Use Types Packs/Day Years Used Date Smoking Tobacco: Former Smokeless Tobacco: Current Tobacco Cessation:Ready to Q uit: Not Asked; Counseling Given: Not Answered Comments:Currently vaping Alcohol Use Standard Drinks/Week Comments Yes 0 (1 standard drink = 0.6 oz pur e alcohol) occasional AUDIT-C Answer Date Recorded Q1: How often do you have a drink containing alc ohol? Monthly or less 06/01/2024 Q2: How many drinks containi ng alcohol do you have on a typical day when you are drinking? 1 or 2 06/01/2024 Q3: How often do you have si x or more drinks on one occasion? Never 06/01/2024 PHQ-2 Answer Date Recorded PHQ-2 Score 2 03/28/2019 Personal Safety Answer Date Recorded Have you ever been in or are you currently in a harmful physical or emotional relationship or is someone making you feel afraid or unsafe? 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 Gender Identity Not on file Sexual Orientation Not on file Obstetrics History Last Filed Vital Signs Vital Sign Reading Time Taken Comments Blood Pressure 135/78 04/12/2025 5:00 AM CDT Pulse 70 04/12/2025 5:00 AM CDT Temperature 36.6 C (97.9 F) 04/12/2025 2:45 AM CDT Respiratory Rate 18 04/12/2025 2:45 AM CDT Oxygen Saturation 97% 04/12/2025 5:00 AM CDT Inhaled Oxygen Concentration - - Weight 84.8 kg (187 lb) 04/12/2025 2:45 AM CDT Height 162.6 cm (5' 4) 04/12/2025 2:45 AM CDT Body Mass Index 32.1 04/12/2025 2:45 AM CDT Plan of Treatment Health Maintenance Due Date Last Done Comments Cervical Cancer Screening 1980 DTaP/Tdap/Td Vaccine (1 - Tdap) 1991 Varicella Vaccines (1 of 2 - 13+ 2-dose series) 1993 Hepatitis B Screening 1998 Regular Well Visit/Exam 18-64 1998 HPV Vaccines (1 - 3-dose SCDM series) 2007 Depression Screening 10/16/2019 10/15/2018 Influenza Vaccine (#1) 2025 05/19/2014 Breast Cancer Screening-Mammogram 08/21/2025 08/21/2024 Hepatitis C Screening Completed 02/25/2015 , 08/15/2009, 01/11/2009, Additional history exists Pneumococcal vaccine <65 Aged Out No longer eligible based on patient's age to complete this topic Procedures Procedure Name Priority Date/Time Associated Diagnosis Comments EGFR STAT 04/12/2025 3:41 AM CDT DIFFERENTIAL AUTO STAT 04/12/2025 3:4 1 AM CDT CRP (ACUTE PHASE) STAT 04/12/2025 3:4 1 AM CDT BASIC METABOLIC PANEL STAT 04/12/2025 3:41 AM CDT CBC WITH AUTO DIFFERENTIAL STAT 04/12/2025 3:41 AM CDT SCREENING MAMMOGRAM BILATERAL W [place] Schedule Routine, Read Routine (OP Routine) 08/21/2024 10:43 AM LEAD SOFTWARE DEVELOPMENT ENGINEER Screening mammogram, encounter for from Last 3 Months or Most Recently Relevant to Health Maintenance Results * eGFR (04/12/2025 3:41 AM CDT) eGFR >90 >=60 mL/min/1. 73 m2 Comment: Interpretive Data Reference Interval Normal >/= 90 mL/min/1.73m2 Mildly decreased* 60 - 89 mL/min/1.73m2 Mildly to moderately decreased 45 - 59 mL/min/1.73m2 Moderately to severely decreased 30 - 44 mL/min/1.73m2 Severely decreased 15 - 29 mL/min/1.73m2 Kidney Failure < 15 mL/min/1.73m2 *Relative to young adult level Estimated glomerular filtration rate is determined by the 2020 CKD-EPI equation recommended by the National Kidney Foundation (A Unifying Approach to GFR Estimation: Recommendations of the NKF-ASK Task Force on Reassessing the Inclusion of Race in Diagnosing Kidney Disease, JASN 202). The CKD-EPI equation should not be used for patients with unstable renal function and has not been validated in children and those over 70. Current interpretive data was last reviewed 2021. Blood 04/12/2025 3:41 AM CDT 04/12/2025 3:44 AM CDT us Cornelius Gallardo MD LAB BLOOD ORDERABLES Final Res ult [facility]) [address] [facility] [place] [address] * (ABNORMAL) Differential, auto (04/12/2025 3:41 AM CDT) Neutrophil abs 7.50(H) 1.50 - 6.50 K/cumm Imm gran abs 0.04 0.00 - 0.10 K/cumm [facility] ([facility]) Lymphocyte abs 2.02 0.80 - 3.30 K/cumm [facility] ([facility]) Monocyte abs 1.28(H) 0.20 - 0.80 K/cumm [facility] ([facility]) Eosinophil abs 0.13 0.00 - 0.50 K/cumm [facility] ([facility]) Basophil abs 0.06 0.00 - 0.10 K/cumm [facility] ([facility]) Neutrophil pct 68.0 % [facility] ([facility]) Comment: Interpretive Data Percent cell count reference ranges are not reported, since discordance with absolute values may lead to misinterpretation of CBC data. Current Interpretive Data was last revised on 2017. Imm gran pct 0.4 % [facility] ([facility]) Comment: Interpretive Data Percent cell count reference ranges are not reported, since discordance with absolute values may lead to misinterpretation of CBC data. Current Interpretive Data was last revised on 2017. Lymphocyte pct 18.3 % [facility] ([facility]) Comment: Interpretive Data Percent cell count reference ranges are not reported, since discordance with absolute values may lead to misinterpretation of CBC data. Current Interpretive Data was last revised on 2017. Monocyte pct 11.6 % [facility] ([facility]) Comment: Interpretive Data Percent cell count reference ranges are not reported, since discordance with absolute values may lead to misinterpretation of CBC data. Current Interpretive Data was last revised on 2017. Eosinophil pct 1.2 % [facility] ([facility]) Comment: Interpretive Data Percent cell count reference ranges are not reported, since discordance with absolute values may lead to misinterpretation of CBC data. Current Interpretive Data was last revised on 2017. Basophil pct 0.5 % [facility] ([facility]) Comment: Interpretive Data Percent cell count reference ranges are not reported, since discordance with absolute values may lead to misinterpretation of CBC data. Current Interpretive Data was last revised on 2017. Blood 04/12/2025 3:41 AM CDT 04/12/2025 3:44 AM CDT us Cornelius Gallardo MD LAB BLOOD ORDERABLES Final Res ult [facility] ([facility]) 1 [facility] [place] [address] * (ABNORMAL) CBC with auto differential (04/12/2025 3:41 AM CDT) WBC 11.03(H) 3.80 - 9.90 K/cumm Hgb 14.2 11.9 - 15.5 g/dL [facility] ([facility]) Hct 41.3 35.6 - 45.5 % [facility] ([facility]) Plt 277 150 - 400 K/cumm [facility] ([facility]) MPV 9.8 9.1 - 12.3 fL [facility] ([facility]) RBC 4.63 3.90 - 5.20 M/cumm [facility] ([facility]) MCV 89.2 81.3 - 96.4 fL [facility] ([facility]) MCH 30.7 27.1 - 33.3 pg [facility] ([facility]) MCHC 34.4 32.3 - 35.7 g/dL [facility] ([facility]) RDW CV 11.9 11.1 - 14.9 % [facility] ([facility]) RDW SD 38.7 35.7 - 48.1 fL [facility] ([facility]) NRBC abs 0.00 0.00 - 0.01 K/cumm [facility] ([facility]) Blood 04/12/2025 3:41 AM CDT 04/12/2025 3:44 AM CDT us Cornelius Gallardo MD LAB BLOOD ORDERABLES Final Res ult [facility] ([facility]) [address] [facility] [employer] [place] [place] [address] * CRP (acute phase) (04/12/2025 3:41 AM CDT) CRP <3.0 <=10.0 mg/L [facility] ([facility]) Blood 04/12/2025 3:41 AM CDT 04/12/2025 3:44 AM CDT Cornelius Gallardo MD LAB BLOOD ORDERABLES Final Res ult [facility] ([facility]) 1 [facility] [place] [address] * Basic metabolic panel (04/12/2025 3:41 AM CDT) Sodium 137 135 - 145 mmol/L [facility] ([facility]) Potassium, pl 4.1 3.3 - 4.9 mmol/L [facility] ([facility]) Chloride 101 97 - 110 mmol/L [facility] ([facility]) CO2 23 22 - 32 mmol/L [facility] ([facility]) Anion gap 13 2 - 15 mmol/L [facility] ([facility]) BUN 12 6 - 25 mg/dL [facility] ([facility]) Creatinine 0.67 0.60 - 1.10 mg/dL [facility] ([facility]) Glucose 124 70 - 199 mg/dL [facility] ([facility]) Comment: Interpretive Data Fasting glucose >/= 126 mg/dl is diagnostic for diabetes. Fasting is defined as no caloric intake for at least 8 hours. Fasting glucose between 100 mg/dl to 125 mg/dl is diagnostic of prediabetes. In a patient with classic symptoms of hyperglycemia or hyperglycemic crisis, a random glucose >/= 200 mg/dl is diagnostic for diabetes. In the absence of unequivocal hyperglycemia, results should be confirmed by repeat testing. The classification and Diagnosis of Diabetes Diabetes Care 2021; 46: S19-S40. Current interpretive data was last revised 2022. Calcium 9.4 8.5 - 10.3 mg/dL [facility] ([facility]) Blood 04/12/2025 3:41 AM CDT 04/12/2025 3:44 AM CDT us Cornelius Gallardo MD LAB BLOOD ORDERABLES Final Res ult [facility] ([facility]) [address] [facility] [place] [address] * Screening Mammogram Bilateral W [place] (08/21/2024 10:43 AM LEAD SOFTWARE DEVELOPMENT ENGINEER) Anatomical Region Laterality Modality Breast Bilateral Mammography Narrative 08/24/2024 12:30 PM LEAD SOFTWARE DEVELOPMENT ENGINEER Mammogram Technique: Bilateral Digital Breast Tomosynthesis, Bilateral C-view 2D Screening mammogram. Views obtained: bilateral craniocaudal and bilateral mediolateral oblique. Computer Aided Detection was performed. Mammogram Findings: This is a baseline study. The breasts are heterogeneously dense, which may obscure small masses. There is no suspicious abnormality in either breast. Impression: There is no mammographic evidence of malignancy. Screening breast MRI also recommended given significant family history. Annual screening mammography is recommended. If supplemental screening is desired, breast MRI would be recommended in this patient with heterogeneously dense breasts. OVERALL FINAL ASSESSMENT: BI-RADS CATEGORY 1: Negative. Procedure Note Zenaida Lindsay MD - 08/24/2024 Mammogram Technique: Bilateral Digital Breast Tomosynthesis, Bilateral C-view 2D Screening mammogram. Views obtained: bilateral craniocaudal and bilateral mediolateral oblique. Computer Aided Detection was performed. Mammogram Findings: This is a baseline study. The breasts are heterogeneously dense, which may obscure small masses. There is no suspicious abnormality in either breast. Impression: There is no mammographic evidence of malignancy. Screening breast MRI also recommended given significant family history. Annual screening mammography is recommended. If supplemental screeningis desired, breast MRI would be recommended in this patient with heterogeneously dense breasts. OVERALL FINAL ASSESSMENT: BI-RADS CATEGORY 1: Negative. us Self Screening Mammogram IMG MAMMO PROCEDURES Fi nal Result from Last 3 Months or Most Recently Relevant to Health Maintenance Insurance [employer]PA MEDICARE MEDICARE [facility] [place] [address] ID[employer] MEDICARE Advance Directives For more information, please contact: [phone] * Full Code (Latest Code Status on File) Date Activated Date Inactivated Comments 06/01/2024 12:53 PM 06/01/2024 7:50 PM * Full Code Date Activated Date Inactivated Comments 10/15/2018 10:44 PM 10/16/2018 10:23 PM * Full Code Date Activated Date Inactivated Comments 10/15/2018 10:44 PM 10/15/2018 10:44 PM Care Teams Cloth Painter Relationship Specialty Start Date End Date Jaspreet Kerr MD PCP - General 05/25/13 Benson Stauffer Jr., MD [address] [facility] [id number] [place] [address] Consulting Physician Colon and Rectal Surgery 06/15/24 Yamile Bhardwaj MD [address] [place] [address] Consulting Physician Gastroenterology 06/18/24
--- OUTSIDE RECORDS SUMMARY | 2025-04-22 10:53 | XMS_ITS | Encounter Summary ---
Author Organization [facility] Healthcare Address [address] [place] [id number] Care Team Providers Care Dollyman Name Role Phone Jaspreet Kerr MD Primary Care Provider [phone] Xiomy Oliveros MD, Benson Tomlinson Unavailable Yamile Bhardwaj MD Unavailable + Reason for Visit * Reason Onset Date Comments Ready to schedule 05/07/2024 Encounter Details Date Type Department Care Team ([facility] Contact Info) Description 05/07/2024 Telephone [facility] Specialty Services [address] [place] [address] Miscellaneous, Not In File Ready to schedule Social History Tobacco Use Types Packs/Day Years Used Date Smoking Tobacco: Former Smokeless Tobacco: Current Comments:Currently vaping Alcohol Use Standard Drinks/Week Comments Yes 0 (1 standard drink = 0.6 oz pur e alcohol) occasional PHQ-2 Answer Date Recorded PHQ-2 Score 2 03/28/2019 Personal Safety Answer Date Recorded Have you ever been in or are you currently in a harmful physical or emotional relationship or is someone making you feel afraid or unsafe? Denies 09/05/2023 Comments No Sex and Gender Information Value Date Recorded Sex Assigned at Not on file Legal Sex Female 2:37 AM [employer] Gender Identity Not on file Sexual Orientation Not on file documented as of this encounter Plan of Treatment Not on file documented as of this encounter Visit Diagnoses Not on filedocumented in this encounter Care Teams Dollyman Relationship Specialty Start Date End Date Jaspreet Kerr MD PCP - General 05/25/13 Benson Stauffer Jr., MD [address] [facility] [id number] [place] [address] Consulting Physician Colon and Rectal Surgery 06/15/24 Yamile Bhardwaj MD [address] [place] [address] Consulting Physician Gastroenterology 06/18/24 documented as of this encounter
[2025-04-22 11:13] LABS: Hematocrit 42.5 % (37.0-47.0); Hemoglobin 14.1 g/dL (12.0-15.0); Mean Corpuscular HGB Conc 33.2 g/dl (32-36); Mean Corpuscular Hemoglobin 29.9 pg (26-34); Mean Corpuscular Volume 90.0 fl (80-100); Platelet Count Result 275 k/mm3 (150-375); Red Blood Count 4.72 M/mm3 (4.2-5.4); White Blood Count 5.4 K/mm3 (4.5-10.0)
[2025-04-22 11:42] LABS: Alanine Aminotransferase 57 U/L (6-35); Albumin Level 4.4 g/dL (3.5-5.1); Alkaline Phosphatase 62 U/L (38-126); Anion Gap 4 mmol/L (4-12); Aspartate Amino Transferase 56 U/L (14-36); Bilirubin,Total 1.4 mg/dL (0.2-1.3); Blood Urea Nitrogen 12 mg/dL (7-17); Calcium 9.1 mg/dL (8.4-10.2); Carbon Dioxide 32 mmol/L (22-30); Chloride 102 mmol/L (98-107); Cholesterol 207 mg/dL (0-200); Estimated Glomerular Filt Rate > 60; Glucose 87 mg/dL (65-110); HDL Direct 40 mg/dL; Potassium 4.1 mmol/L (3.4-5.0); Sodium 138 mmol/L (137-145); Total Protein 8.2 g/dL (6.3-8.2); Triglycerides 116 mg/dL (<150)
[2025-04-22 11:50] LABS: NT Pro B Type Natriuretic Pept < 20 pg/mL (19.9-100)
[2025-04-22 12:03] LABS: Hemoglobin A1C 4.9 % (<5.7)
[2025-04-22 12:04] LABS: Hepatitis B Surface Antigen Negative (Negative)
[2025-04-22 12:05] LABS: Thyroid Stimulating Hormone Reflex 1.190 uIU/mL (0.465-4.68)
[2025-04-22 12:21] LABS: Hepatitis B Surface Anti Res Negative
[2025-04-22 12:47] LABS: Vitamin B12 337.0 pg/mL (239-931)
[2025-04-26 08:08] LABS: ANA by IFA Rfx Titer/Pattern Negative (.)
== END 2025-04-22 10:12 | disposition home or self-care (01) ==
PROVIDERS: PCP Family Medicine; Referring Provider Nurse Practitioner Family; Visit Provider Internal Medicine Gastroenterology
DX: B19.20 Unspecified viral hepatitis C without hepatic coma (principal); E55.9 Vitamin D deficiency, unspecified; R53.83 Other fatigue; Z13.220 Encounter for screening for lipoid disorders; I50.9 Heart failure, unspecified; M06.9 Rheumatoid arthritis, unspecified; Z13.1 Encounter for screening for diabetes mellitus; I11.0 Hypertensive heart disease with heart failure
CPT/HCPCS: 36415; 80053; 80061; 82306; 82607; 82746; 83036; 83880; 84443; 85027; 86038; 86706; 86803; 87340; 87522